=== PATIENT | female | born 1945 | race Caucasian/White ===

== ENCOUNTER → 2016-09-20 | Outpatient (CLI) | payer MEDICARE, BC ==
--- NOTE | 2016-09-21 10:24 | MM ---
Reason for exam: screening (asymptomatic). Last mammogram was performed 1 year and 10 months ago. History: Patient is postmenopausal and has history of other cancer at age 28. Family history of breast cancer in maternal cousin. Physical Findings: A clinical breast exam by your physician is recommended on an annual basis and results should be correlated with mammographic findings. MG 3D Screening Mammo W/Cad Bilateral CC and MLO view(s) were taken. Prior study comparison: November 10, 2014, bilateral MG screening mammo w CAD. August 13, 2013, bilateral digital screening mammo w/CAD. The breast tissue is extremely dense which could obscure a lesion on mammography. No significant changes when compared with prior studies. ASSESSMENT: Benign, BI-RAD 2 RECOMMENDATION: Routine screening mammogram of both breasts in 1 year.
== END | disposition home or self-care (01) ==
LOC: RADMAMWWP 15:21
PROVIDERS: ATTEND Internal Medicine
DX: Z12.31 Encounter for screening mammogram for malignant neoplasm of breast (principal)
CPT/HCPCS: 77063; G0202

== ENCOUNTER → 2017-01-23 | Day surgery (SDC) | payer MEDICARE, BC ==
[2017-01-17 13:08] VITALS: BMI 28.9
[~2017-01-23] MED LIST: BUPIVACAINE (PF) 0.75% 5 ML, LIDOCAINE 4% (PF) 5 ML, HYALURONIDASE, HUMAN RECOMB 150 UNIT MISCELLANE ONE; CYCLOPENTOLATE 1% OPHTH SOLN 2 ML BTL OP ONE; FLURBIPROFEN 0.03% OPHTH DROPS 2.5 ML BTL OP ONE; GENTAMICIN/PREDNISOL AC OPHTH OINT 3.5GM OPHTHALMIC ONE; LACTATED RINGERS 1,000 ML IV SCH; PHENYLEPHRINE 10% OPHTH DROPS 5 ML BTL OP ONE; TIMOLOL 0.5% OPHTH SOLN (PF) 0.2 ML DROPERETTE OP ONE
== END ==
LOC: OR 09:57
PROVIDERS: ATTEND Ophthalmology
DX: H25.13 Age-related nuclear cataract, bilateral (principal); Z88.5 Allergy status to narcotic agent

== ENCOUNTER → 2018-02-13 | Outpatient (CLI) | payer MEDICARE, BC ==
--- NOTE | 2018-02-14 14:11 | MM ---
Reason for exam: screening (asymptomatic). Last mammogram was performed 1 year and 5 months ago. History: Patient is postmenopausal and has history of other cancer at age 28. Family history of breast cancer in maternal cousin. Physical Findings: A clinical breast exam by your physician is recommended on an annual basis and results should be correlated with mammographic findings. MG 3D Screening Mammo W/Cad Bilateral CC and MLO view(s) were taken. Prior study comparison: September 20, 2016, bilateral MG 3d screening mammo w/cad. November 10, 2014, bilateral MG screening mammo w CAD. The breast tissue is extremely dense which could obscure a lesion on mammography. No significant changes when compared with prior studies. ASSESSMENT: Benign, BI-RAD 2 RECOMMENDATION: Routine screening mammogram of both breasts in 1 year.
== END | disposition home or self-care (01) ==
LOC: RADMAMWWP 12:24
PROVIDERS: ATTEND Internal Medicine
DX: Z12.31 Encounter for screening mammogram for malignant neoplasm of breast (principal)
CPT/HCPCS: 77063; 77067

== ENCOUNTER 2018-03-23 19:16 | Emergency (ER) | payer MEDICARE, BC ==
[2018-03-23] MEDS ORDERED: methylPREDNISolone SOD SUCCI 125 MG/2 ML VIAL IM STA (19:33)
[2018-03-23] MEDS ORDERED: METHOCARBAMOL 750 MG TAB PO STA (19:33)
--- NOTE | 2018-03-23 19:37 | ED ---
Back Pain HPI - General Chief Complaint: Back Pain/Injury Stated Complaint: back pain Time Seen by Provider: 03/23/18 19:17 Source: EMS Limitations: no limitations - History of Present Illness Initial Comments: Patient is a 73-year-old female presenting for lower back spasms. She states that this started yesterday after she bent over to pick something up. She admits to some pain going down her legs but she denies any weakness or numbness. She also denies any urinary symptoms, fevers, chills, abdominal pain , nausea/vomiting/diarrhea. She did try taking some medications but this did not resolve the symptoms. She also denies any saddle anesthesia, urinary retention, bowel incontinence. - Related Data Home Medications Medication Instructions Recorded Confirmed Cholecalciferol (Vitamin D3) 2,000 unit PO DAILY 01/17/17 01/17/17 [Vitamin D3] Citalopram Hydrobromide 40 mg PO HS 01/17/17 01/17/17 [Citalopram HBr] Lansoprazole [Prevacid] 60 mg PO DAILY 01/17/17 01/17/17 Metoprolol Succinate [Toprol XL] 50 mg PO DAILY 01/17/17 01/17/17 Naproxen [Naprosyn] 500 mg PO Q12HR 01/17/17 01/17/17 Pravastatin Sodium [Pravachol] 20 mg PO HS 01/17/17 01/17/17 Vitamin E (Dl,Tocopheryl Acet) 400 unit PO DAILY 01/17/17 01/17/17 [Vitamin E] amLODIPine [Norvasc] 5 mg PO DAILY 01/17/17 01/17/17 hydrALAZINE HCL [Apresoline] 10 mg PO DAILY 01/17/17 01/17/17 Previous Rx's Medication Instructions Recorded Hydrocodone/Acetaminophen [[place] 1 tab PO Q6HR PRN #12 tab 03/23/18 7.5-325] Lidocaine 5% Patch [Lidoderm] 1 patch TOPICAL DAILY #5 patch 03/23/18 Methocarbamol [Robaxin-750] 750 mg PO TID PRN #21 tablet 03/23/18 predniSONE 50 mg PO DAILY #5 tablet 03/23/18 Allergies Allergy/AdvReac Type Severity Reaction Status Date / Time No Known Allergies Allergy Verified 03/23/18 19:23 Review of Systems ROS Statement: Those systems with pertinent positive or pertinent negative responses have been documented in the HPI. Constitutional: Negative for chills, fatigue and fever. HENT: Negative for congestion. Respiratory: Negative for chest tightness, shortness of breath and wheezing. Negative for cough Cardiovascular: Negative for chest pain and palpitations. Gastrointestinal: Negative for abdominal pain. Negative for abdominal distention , diarrhea, nausea and vomiting. Genitourinary: Negative for dysuria. Musculoskeletal: Positive for back pain and back spasms. Negative for neck pain and neck stiffness. Skin: Negative for color change. Neurological: Negative for dizziness, speech difficulty, weakness and light- headedness. Psychiatric/Behavioral: Negative for agitation and confusion. Negative for anxiety ROS Other: All systems not noted in ROS Statement are negative. Past Medical History Past Medical History: Cancer, Eye Disorder, GERD/Reflux, Hyperlipidemia, Hypertension, Osteoarthritis (OA) Additional Past Medical History / Comment(s): HX CERVICAL CA. KINZA CATARACTS. History of Any Multi-Drug Resistant Organisms: None Reported Past Surgical History: Hysterectomy, Joint Replacement Additional Past Surgical History / Comment(s): TOTAL RT KNEE. COLONOSCOPY. Past Anesthesia/Blood Transfusion Reactions: No Reported Reaction Past Psychological History: Anxiety Smoking Status: Current every day smoker - Past Family History Mother Family Medical History: No Reported History General Exam - General Exam Comments Initial Comments: Constitutional: Pt is oriented to person, place, and time. Pt appears well- developed and well-nourished. No distress. HENT: Head: Normocephalic and atraumatic. Eyes: EOM are normal. Neck: Normal range of motion. Neck supple. Cardiovascular: Normal rate, regular rhythm, S1 normal, S2 normal and normal heart sounds. Exam reveals no gallop and no friction rub. No murmur heard. Pulmonary/Chest: Effort normal and breath sounds normal. No tachypnea and no bradypnea. No respiratory distress. No wheezes or rales noted. Abdominal: Soft. Bowel sounds are normal. Pt exhibits no shifting dullness, no distension, no pulsatile liver, no fluid wave, no abdominal bruit and no ascites. There is no tenderness. There is no rigidity, no rebound, no guarding, no tenderness at McBurney's point and negative Vale's sign. Musculoskeletal: Normal range of motion. 5 out of 5 muscle strength of the lower extremities. No neurovascular deficits of the lower extremities. 2+ DTRs at the patellar tendons bilaterally. No tenderness to the C-spine, T-spine , L-spine. Neurological: Pt is alert and oriented to person, place, and time. No cranial nerve deficit. Skin: Skin is warm and dry. No rash noted. Pt is not diaphoretic. No erythema. No pallor. Psychiatric: Pt has a normal mood and affect. Pt behavior is normal. Thought content normal. Limitations: no limitations Course Vital Signs 03/23/18 03/23/18 03/23/18 19:17 21:13 21:37 Temperature 98.4 F 98.7 F Pulse Rate 66 61 64 Respiratory 18 19 18 Rate Blood Pressure 161/79 190/91 186/88 O2 Sat by Pulse 95 96 98 Oximetry Medical Decision Making - Medical Decision Making X-ray of the lumbar spine showed mild compression deformity of 3 vertebral body with height loss presently 10% an indeterminate age. There is also a minimally displaced transverse process fracture of L2 on the left, age indeterminate and multilevel moderate degenerative disc disease. Extensive discussion was had with the patient and the patient's daughter and observation placement was offered to the patient. However, the patient was adamant and kindly stated that she wanted to go home and follow-up spine surgeon an outpatient basis. Patient was also given a prescription for a TLSO brace as this was not available in the emergency department. Patient was advised to come back to emergency department if the pain was intractable and/or she started to have other symptoms. Because she had no red flags for cauda equina, it was felt that this was an appropriate disposition. Patient was agreeable plan. Disposition Clinical Impression: Lumbar vertebral fracture, Back pain Disposition: HOME SELF-CARE Condition: Good Instructions: Acute Low Back Pain (ED) Prescriptions: Hydrocodone/Acetaminophen [[place] 7.5-325] 1 tab PO Q6HR PRN #12 tab PRN Reason: Pain Lidocaine 5% Patch [Lidoderm] 1 patch TOPICAL DAILY #5 patch Methocarbamol [Robaxin-750] 750 mg PO TID PRN #21 tablet PRN Reason: Pain predniSONE 50 mg PO DAILY #5 tablet Is patient prescribed a controlled substance at d/c from ED?: Yes When asked, does pt state using other controlled substances?: No If prescribed controlled substance>3 days was MAPS reviewed?: Prescribed <3 Days If opioid is for acute pain is fill amount 7 days or less?: Yes If Rx opioid, was Start Talking consent form obtained?: Yes Referrals: Ash Cameron MD [Primary Care Provider] - 1-2 days Irena Roca DO [Doctor of Osteopathic Medicine] - 1-2 days Time of Disposition: 21:01
--- NOTE | 2018-03-23 20:02 | XR ---
EXAMINATION TYPE: XR lumbar spine 2 or 3V DATE OF EXAM: 03/23/2018 CLINICAL HISTORY: Low back pain and spasms after lifting injury TECHNIQUE: Frontal and lateral images of the lumbar spine are obtained. COMPARISON: None FINDINGS: There is a compression deformity of the L3 vertebral body with vertebral body height loss of approximately 10%. There is mild retrolisthesis of L2 on L3 and mild anterolisthesis of L4 on L5 ( grade 1). There appears to be a minimally displaced fracture of the transverse process of L2 on the l eft of indeterminate age. There is generalized osseous demineralization and multilevel moderate degen erative changes of the lumbar spine. Overlying bowel is nondilated. There are 5 lumbar type vertebral bodies identified. IMPRESSION: 1. Mild compression deformity of the L3 vertebral body with height loss of approximately 10%. Indeter minate age without priors. 2. Minimally displaced transverse process fracture of L2 on the left. Indeterminate age without prior s. 3. Diffuse osseous demineralization and multilevel moderate degenerative disc disease. 4. Mild retrolisthesis of L2 on L3 and anterolisthesis of L4 on L5, likely on a degenerative basis.
[2018-03-23] MEDS ORDERED: HYDROcodone/APAP 7.5-325MG 1 EACH TAB PO ONE (21:16)
[2018-03-23 21:38] VITALS: BP 186/88; PULSE 64; RESP 18; TEMP 98.7
== END 2018-03-23 21:37 | disposition home or self-care (01) ==
LOC: EC 19:16
DX: S32.029A Unspecified fracture of second lumbar vertebra, initial encounter for closed fracture (principal); K21.9 Gastro-esophageal reflux disease without esophagitis; E78.5 Hyperlipidemia, unspecified; I10 Essential (primary) hypertension; M19.90 Unspecified osteoarthritis, unspecified site; F41.9 Anxiety disorder, unspecified; F17.200 Nicotine dependence, unspecified, uncomplicated; Z85.41 Personal history of malignant neoplasm of cervix uteri; Z79.1 Long term (current) use of non-steroidal anti-inflammatories (NSAID); Z79.899 Other long term (current) drug therapy
CPT/HCPCS: 72100; 99284; 96372; J2930

== ENCOUNTER → 2018-12-04 | Outpatient (CLI) | payer MEDICARE, BC ==
--- NOTE | 2018-12-05 09:13 | CTL ---
EXAMINATION TYPE: CT Low Dose Lung DATE OF EXAM ORDERED: 12/04/2018 HISTORY: . Lung cancer screening CT DLP: [address] CTDI: 1.91 mGy Automated exposure control for dose reduction was used. SCREENING VISIT: Initial COMPARISON: None TECHNIQUE: Low dose computed tomography scan was performed through the chest at 1 mm thick sections a nd reconstructed images in the coronal plane at [address] DIAGNOSTIC QUALITY: Limited, but interpretable FINDINGS: LUNG NODULES: None. Note is made of a couple of emphysematous bulla within the right lung base. LUNGS: COPD: Severity: Mild Fibrosis: Severity: None Lymph nodes: None Other findings: The ascending thoracic aorta at the level the main pulmonary artery is 3.2 cm. The ma in pulmonary artery the bifurcation is 2.8 cm. RIGHT PLEURAL SPACE: Effusion: None Calcification: None Thickening: None Pneumothorax: None LEFT PLEURAL SPACE: Effusion: None Calcification: None Thickening: None Pneumothorax: None HEART: Heart Size: Normal Coronary calcification: Moderate Pericardial effusion: None OTHER FINDINGS: Upper abdomen: Normal Bony thorax: Normal Supraclavicular region: Normal Other: None IMPRESSION: 1. COPD FOLLOW UP CT CHEST RECOMMENDATION: Low dose screening CT chest per protocol CT LUNG RAD: Lung-Rad 1 Negative
== END | disposition home or self-care (01) ==
LOC: RADCTMAIN 16:51
PROVIDERS: ATTEND Family Medicine
DX: Z12.2 Encounter for screening for malignant neoplasm of respiratory organs (principal); J44.9 Chronic obstructive pulmonary disease, unspecified; Z87.891 Personal history of nicotine dependence

== ENCOUNTER → 2019-02-14 | Outpatient (CLI) | payer MEDICARE, BC ==
--- NOTE | 2019-02-18 10:08 | MM ---
Reason for exam: screening (asymptomatic). Last mammogram was performed 1 year ago. History: Patient is postmenopausal and has history of other cancer at age 28. Family history of breast cancer in maternal cousin. Physical Findings: A clinical breast exam by your physician is recommended on an annual basis and results should be correlated with mammographic findings. MG 3D Screening Mammo W/Cad Bilateral CC and MLO view(s) were taken. Prior study comparison: February 13, 2018, bilateral MG 3d screening mammo w/cad. September 20, 2016, bilateral MG 3d screening mammo w/cad. The breast tissue is extremely dense which could obscure a lesion on mammography. There is a stable anterior depth inferior skin lesion. Benign appearing bilateral calcifications. No suspicious abnormality. No significant changes when compared with prior studies. ASSESSMENT: Negative, BI-RAD 1 RECOMMENDATION: Routine screening mammogram of both breasts in 1 year.
== END ==
LOC: RADMAMWWP 13:52
PROVIDERS: ATTEND Family Medicine
DX: Z12.31 Encounter for screening mammogram for malignant neoplasm of breast (principal)
CPT/HCPCS: 77063; 77067

== ENCOUNTER 2019-03-13 08:47 | Day surgery (SDC) | payer MEDICARE, BC ==
[2019-03-11 16:05] VITALS: BMI 25.2
[2019-03-13] MEDS ORDERED: ALPRAZolam 0.25 MG TAB ONE (09:26)
[2019-03-13] MEDS ORDERED: hydrALAZINE HCL 20 MG/ML 1 ML VIAL ONE (09:26)
[2019-03-13] MEDS ORDERED: ATORVASTATIN 80 MG TAB PO STA (11:10)
[2019-03-13] MEDS ORDERED: SODIUM CHLORIDE 0.9% 1,000 ML in EMPTY BAG 1 BAG IV ONE (11:10)
[2019-03-13] MEDS ORDERED: ALPRAZolam 0.25 MG TAB PO PRN (11:10)
[2019-03-13] MEDS ORDERED: NITROGLYCERIN SL TABS 0.4 MG TAB SUBLINGUAL PRN ×2 (11:10→13:13)
[2019-03-13] MEDS ORDERED: ALPRAZolam 0.5 MG TAB PO PRN (11:10)
[2019-03-13] MEDS ORDERED: ASPIRIN 325 MG TAB PO STA (11:10)
[2019-03-13] MEDS ORDERED: IV FLUID CONTINUATION 1,000 ML IV ONE (11:50)
[2019-03-13] MEDS ORDERED: VERAPAMIL 2.5 MG/ML 2 ML AMP ONE (11:53)
[2019-03-13] MEDS ORDERED: LIDOCAINE 1% INJ 10MG/ML (20 ML MDV) ONE (11:53)
[2019-03-13] MEDS ORDERED: HEPARIN SODIUM 1,000 UN/ML (10ML VL) ONE (12:13)
[2019-03-13] MEDS: MIDAZOLAM (PF) 2 MG/2 ML VIAL IV ONE ×3 (12:24→12:35)
[2019-03-13] MEDS: LIDOCAINE 1% INJ 10MG/ML (20 ML MDV) SQ ONE ×2 (12:32→12:52)
[2019-03-13] MEDS ORDERED: VERAPAMIL SYRINGE (5 MG/10 ML) INTRAARTER ONE (12:34)
[2019-03-13] MEDS: HEPARIN SODIUM 1,000 UN/ML (10ML VL) IV ONE ×2 (12:38→12:52)
[2019-03-13] MEDS ORDERED: HYDROmorphone 1 MG/ML 1 ML SYRINGE ONE (12:39)
[2019-03-13] MEDS ORDERED: HYDROmorphone 1 MG/ML 1 ML SYRINGE IVP ONE (12:41)
[2019-03-13] MEDS ORDERED: CLOPIDOGREL 75 MG TAB ONE ×2 (12:47)
[2019-03-13] MEDS ORDERED: MIDAZOLAM (PF) 2 MG/2 ML VIAL IV ONE (12:48)
[2019-03-13] MEDS ORDERED: CLOPIDOGREL 75 MG TAB PO ONE (12:55)
[2019-03-13] MEDS ORDERED: NITROGLYCERIN 1000MCG/10ML SYRINGE INTRACORON ONE (13:04)
[2019-03-13] MEDS ORDERED: IOPAMIDOL-370 125ML BTL INJ ONE (13:06)
[2019-03-13] MEDS ORDERED: ATROPINE SULFATE 0.1 MG/ML 10ML SYRINGE IV PRN (13:13)
[2019-03-13] MEDS ORDERED: MAG HYDROX/AL HYDROX/SIMETH 30 ML CUP PO PRN (13:13)
[2019-03-13] MEDS ORDERED: ZOLPIDEM 5 MG TAB PO PRN (13:13)
[2019-03-13] MEDS ORDERED: RX INFO: IV CONTRAST WAS GIVEN 1 EACH MISC MISCELLANE PRN (13:13)
[2019-03-13] MEDS ORDERED: SODIUM CHLORIDE 0.9% 1,000 ML IV SCH (13:15)
--- NOTE | 2019-03-13 13:57 | CC ---
CARDIAC CATHETERIZATION REPORT DATE OF SERVICE: 03/13/2019 PERFORMING PHYSICIAN: Donte Senior MD, Shell Mold Bonding Machine Operator. PROCEDURE PERFORMED: 1. Selective right and left coronary angiogram. 2. Left heart catheterization. 3. Successful stenting of the mid left circumflex using 3.25 x 18 mm Xience EPIFANIO with an excellent angiographic results and reduction of stenosis from 90% to 0%. INDICATION: This is a pleasant 74-year-old female patient with hypertension, dyslipidemia, significant history of smoking, significant family history of coronary artery disease, was experiencing symptoms of shortness of breath with exertion. She underwent a myocardial perfusion imaging stress test and that revealed reversible defect concerning for ischemia. Because of that, a heart catheterization was advised. APPROACH: 1. Right radial artery. 2. Right common femoral artery. COMPLICATION: None. LEVEL OF SEDATION: Moderate with sedation length of 36 minutes. PROCEDURE DESCRIPTION: After obtaining an informed consent, the patient was brought to the cardiac concrete mixing plant laborer. The right radial artery was cannulated using micropuncture technique, the micropuncture wire passed easily then I put a 5-Ivorian sheath in the right radial artery. I did give the patient after that 2 mg of verapamil IA and 5000 units of heparin IV. I did perform selective right and left coronary angiogram. Selective right coronary angiogram was performed using JR4 3.5 catheter and selective left coronary angiogram was performed using JL 3 catheter. The patient experienced a lot passing the catheters through the arm and because of that, I decided to abort the radial approach for the intervention on the left circumflex. Left heart catheterization was performed using the JR4 catheter which flipped into the LV, then it was pulled back across the aortic valve. The procedure was completed without any complication. SELECTIVE CORONARY ANGIOGRAM: 1. The right coronary artery is a large caliber vessel. It is a dominant vessel. The RCA in the proximal portion appeared to be angiographically normal. In the midportion, it appeared to have a lesion in the range of 60%. Distally appeared to be angiographically normal and bifurcates into PDA and PLV branches, both are angiographically normal. 2. The left main has ostial disease, appeared to be in the range of 30%. It bifurcates into left circumflex, ramus intermedius, and left anterior descending artery. 3. The left circumflex is a large caliber vessel, it is a nondominant vessel. The proximal left circumflex appeared to have mild disease only. The mid left circumflex is tortuous and at that point gives rise into the first obtuse marginal branch which is a medium caliber vessel and appears to be angiographically normal and the second OM branch which is involved in the lesion in the left circumflex which is about 90% lesion. The left circumflex continues after that as a small- caliber vessel in the AV groove. 4. The LAD, the LAD overall appears to be angiographically normal. It gives rise into a large diagonal branch which seems to be angiographically normal. 5. The ramus intermedius appeared to be angiographically normal as well. 6. HEMODYNAMICS: The left ventricular end-diastolic pressure was about 12 mmHg without significant gradient across aortic valve. 7. PCI of the left circumflex - I accessed the right common femoral artery using micropuncture technique and a micropuncture wire passed easily, then I placed a 6- Ivorian sheath. After that, I did check the ACT which came into be subtherapeutic and because of that, I gave the patient additional 3000 units of heparin. 8. I engaged the left main using JL 3.5 guide. I did wire it using a whisper wire. After that, I did balloon angioplasty using 2.5 x 12 mm balloon before I deployed 3.25 x 18 mm Xience EPIFANIO where the stent was positioned under fluoroscopy guidance and deployed under 16 atmospheres for 20 seconds with the following angiogram showing excellent angiographic results and the procedure was completed without any complication. CONCLUSION: 1. Intermediate to severe lesion involving the mid-right coronary artery, appeared to be in the range of 60%. 2. 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 3. Mild disease involving the left anterior descending artery. 4. Successful stenting of the mid left circumflex using 3.25 x 18 mm Xience EPIFANIO with an excellent angiographic results and reduction of stenosis from 90% to 0%. POSTPROCEDURE MANAGEMENT: 1. Dual anti-platelet therapy. 2. Risk factors modifications. 3. If the patient continues to be symptomatic, will assess for ischemia in the RCA territory. MMODL / IJN: [id number] /
--- NOTE | 2019-03-13 15:24 | LTR ---
DATE OF SERVICE: 03/13/2019 RE: Beulah Celeste Dear Dr. Porras; Ms. Beulah Celeste underwent today successful percutaneous coronary intervention of the left circumflex coronary artery with an excellent angiographic results and without any complication. I want to thank you for allowing me to participate in her care and please do not hesitate to call if you have any question or concern. Sincerely, MD LAITH Martin / ANALIN: [id number] /
[2019-03-13] MEDS ORDERED: PRAVASTATIN SODIUM 20 MG TAB PO SCH (21:00)
[2019-03-13] MEDS ORDERED: ATORVASTATIN 80 MG TAB PO SCH (21:00)
[2019-03-13] MEDS ORDERED: CITALOPRAM HYDROBROMIDE 20 MG TAB PO SCH (21:00)
[2019-03-14 03:33] VITALS: TEMP 98.6
[2019-03-14 07:17] LABS: Basophils % (A) 0 %; Eosinophils # (A) 0.2 k/uL (0-0.7); Eosinophils % (A) 3 %; HCT 29.3 % (34.0-46.0); HGB 9.8 gm/dL (11.4-16.0); Lymphocytes # (A) 1.2 k/uL (1.0-4.8); Lymphocytes % (A) 15 %; MCH 31.9 pg (25.0-35.0); MCHC 33.5 g/dL (31.0-37.0); MCV 95.2 fL (80.0-100.0); Mean Platelet Volume 7.6; Monocytes # (A) 0.4 k/uL (0-1.0); Monocytes % (A) 5 %; Neutrophils # (A) 5.7 k/uL (1.3-7.7); Neutrophils % (A) 75 %; Platelet Count 292 k/uL (150-450); RBC 3.08 m/uL (3.80-5.40); RDW 13.3 % (11.5-15.5); WBC 7.7 k/uL (3.8-10.6)
[2019-03-14] MEDS ORDERED: PANTOPRAZOLE 40 MG TABLET PO SCH (07:30)
[2019-03-14 07:31] LABS: Potassium 4.5 mmol/L (3.5-5.1)
[2019-03-14 08:42] VITALS: BP 168/77; PULSE 68; RESP 18
--- NOTE | 2019-03-14 08:45 | DS ---
DISCHARGE SUMMARY ADMISSION DATE: March 13, 2019 DISCHARGE DATE: March 14, 2019 BRIEF HISTORY: This is a 74-year-old female patient who was experiencing symptoms of shortness of breath with exertion and underwent heart catheterization yesterday and that revealed severe disease involving the left circumflex which was stented with excellent angiographic results and without any complication. The patient is going to be discharged home on dual antiplatelet therapy and statin and I will follow up with the patient in a week in the office. MMAIDAN / CARLY: [id number] /
[2019-03-14] MEDS ORDERED: CLOPIDOGREL 75 MG TAB PO SCH (09:00)
[2019-03-14] MEDS ORDERED: CHOLECALCIFEROL 1,000 UNIT TAB PO SCH (09:00)
[2019-03-14] MEDS ORDERED: hydrALAZINE HCL 10 MG TAB PO SCH (09:00)
[2019-03-14] MEDS ORDERED: amLODIPine 5 MG TAB PO SCH (09:00)
[2019-03-14] MEDS ORDERED: METOPROLOL SUCCINATE (ER) 50 MG TAB.ER.24H PO SCH (09:00)
== END 2019-03-14 10:30 ==
LOC: CATHCVL 08:47 → 3SCARD 16:07 → CATHCVL 03-14 10:30
PROVIDERS: ATTEND Internal Medicine Interventional Cardiology
DX: I25.110 Atherosclerotic heart disease of native coronary artery with unstable angina pectoris (principal); I10 Essential (primary) hypertension; F17.210 Nicotine dependence, cigarettes, uncomplicated; I77.1 Stricture of artery; E78.5 Hyperlipidemia, unspecified; Z82.49 Family history of ischemic heart disease and other diseases of the circulatory system; I73.9 Peripheral vascular disease, unspecified; Z79.82 Long term (current) use of aspirin; Z79.899 Other long term (current) drug therapy
CPT/HCPCS: 93458; 85347; 80048; 85025; C9600; C1769 ×3; C1887; C1725; C1894 ×2; C1874; J0360; J2001; J1644; J1170; Q9967; J2250

== ENCOUNTER 2019-08-05 21:29 | Inpatient (IN) | payer MEDICARE, BC ==
[2019-08-05] MEDS ORDERED: methylPREDNISolone SOD SUCCI 125 MG/2 ML VIAL IV STA (22:05)
[2019-08-05] MEDS ORDERED: IPRATROPIUM-ALBUTEROL 3 ML NEB INHALATION STA (22:05)
--- NOTE | 2019-08-05 22:05 | ED ---
SOB HPI - General Chief Complaint: Shortness of Breath Stated Complaint: CRYSTAL Time Seen by Provider: 08/05/19 21:50 Source: patient, family Mode of arrival: wheelchair Limitations: no limitations - History of Present Illness Initial Comments: This is a 74-year-old female history of emphysema who is brought in by family due to progressively worsening exertional dyspnea and shortness of breath. She looks pale today. She does have a history of the left circumflex cardiac artery with a stent she does have an occluded RCA. Chest pain no fevers chills nausea vomiting sweats just exertional dyspnea which is getting progressively worse. MD Complaint: shortness of breath - Related Data Home Medications Medication Instructions Recorded Confirmed Cholecalciferol (Vitamin D3) 2,000 unit PO DAILY 01/17/17 08/05/19 [Vitamin D3] Citalopram Hydrobromide 40 mg PO HS 01/17/17 08/05/19 [Citalopram HBr] amLODIPine [Norvasc] 5 mg PO DAILY 01/17/17 08/05/19 Metoprolol Succinate [Toprol Xl] 50 mg PO DAILY 03/11/19 08/05/19 Aspirin EC [Ecotrin Low Dose] 81 mg PO DAILY 08/05/19 08/05/19 Lansoprazole [Prevacid] 30 mg PO BID 08/05/19 08/05/19 Lisinopril [Prinivil] 5 mg PO DAILY 08/05/19 08/05/19 Rosuvastatin [Crestor] 20 mg PO DAILY 08/05/19 08/05/19 Previous Rx's Medication Instructions Recorded Clopidogrel [Plavix] 75 mg PO DAILY #90 tab 03/14/19 Allergies Allergy/AdvReac Type Severity Reaction Status Date / Time No Known Allergies Allergy Verified 08/05/19 23:07 Review of Systems ROS Statement: Those systems with pertinent positive or pertinent negative responses have been documented in the HPI. ROS Other: All systems not noted in ROS Statement are negative. Past Medical History Past Medical History: Cancer, Eye Disorder, GERD/Reflux, Hyperlipidemia, Hypertension, Osteoarthritis (OA) Additional Past Medical History / Comment(s): HX CERVICAL CA. KINZA CATARACTS. History of Any Multi-Drug Resistant Organisms: None Reported Past Surgical History: Heart Catheterization With Stent Additional Past Surgical History / Comment(s): TOTAL RT KNEE. COLONOSCOPY. Past Anesthesia/Blood Transfusion Reactions: No Reported Reaction Past Psychological History: Anxiety Smoking Status: Current every day smoker Past Alcohol Use History: Daily Past Drug Use History: None Reported - Past Family History Mother Family Medical History: No Reported History General Exam - General Exam Comments Initial Comments: This is a well-developed asthenic appearing female who is awake alert oriented 3 Limitations: no limitations General appearance: alert, anxious Head exam: Present: atraumatic, normocephalic, normal inspection Eye exam: Present: normal appearance, PERRL, EOMI. Absent: scleral icterus, conjunctival injection, periorbital swelling ENT exam: Present: mucous membranes dry Neck exam: Present: normal inspection. Absent: tenderness, meningismus, lymphadenopathy Respiratory exam: Present: accessory muscle use, decreased breath sounds, other (Markedly diminished breath sounds especially on the right compared to the left). Absent: respiratory distress, wheezes, rales, rhonchi, stridor Cardiovascular Exam: Present: regular rate, normal rhythm, normal heart sounds. Absent: systolic murmur, diastolic murmur, rubs, gallop, clicks GI/Abdominal exam: Present: soft, normal bowel sounds. Absent: distended, tende rness, guarding, rebound, rigid Extremities exam: Present: normal inspection, full ROM, normal capillary refill. Absent: tenderness, pedal edema, joint swelling, calf tenderness Back exam: Present: normal inspection Neurological exam: Present: alert, oriented X3, CN II-XII intact Psychiatric exam: Present: normal affect, normal mood Skin exam: Present: warm, dry, intact, normal color. Absent: rash Course Vital Signs 08/05/19 08/05/19 08/05/19 21:32 22:26 22:34 Temperature 97.9 F Pulse Rate 82 67 67 Respiratory 20 Rate Blood Pressure 214/96 O2 Sat by Pulse 87 L Oximetry 08/05/19 23:26 Temperature Pulse Rate 70 Respiratory 18 Rate Blood Pressure 180/81 O2 Sat by Pulse 97 Oximetry - Reevaluation(s) Reevaluation #1: 08/05/19 23:40 She did get some relief after the initial treatment with updraft. Reevaluation #2: 08/05/19 23:40 I did discuss findings with patient family members x-ray does show evidence of increased pulmonary vascular congestion a small right pleural effusion and cardiomegaly. ENT is 17,000+. Medical Decision Making - Medical Decision Making I did discuss findings with the patient and family members as well as with Dr. Saul. Patient be admitted with cardiology and pulmonary consultation. The presentation is consistent with CHF and COPD exacerbation with hypoxemia - Lab Data Result diagrams: 08/05/19 21:48 08/05/19 21:48 Lab Results 08/05/19 08/05/19 08/05/19 Range/Units 21:48 21:48 21:48 WBC 7.6 (3.8-10.6) k/uL RBC 3.16 L (3.80-5.40) m/uL Hgb 10.3 L (11.4-16.0) gm/dL Hct 31.3 L (34.0-46.0) % MCV 99.1 (80.0-100.0) fL MCH 32.6 (25.0-35.0) pg MCHC 32.9 (31.0-37.0) g/dL RDW 13.2 (11.5-15.5) % Plt Count 313 (150-450) k/uL Neutrophils % 76 % Lymphocytes % 16 % Monocytes % 5 % Eosinophils % 2 % Basophils % 1 % Neutrophils # 5.7 (1.3-7.7) k/uL Lymphocytes # 1.2 (1.0-4.8) k/uL Monocytes # 0.4 (0-1.0) k/uL Eosinophils # 0.2 (0-0.7) k/uL Basophils # 0.0 (0-0.2) k/uL PT (9.0-12.0) sec INR (<1.2) APTT (22.0-30.0) sec Sodium 132 L (137-145) mmol/L Potassium 5.4 H (3.5-5.1) mmol/L Chloride 104 (98-107) mmol/L Carbon Dioxide 16 L (22-30) mmol/L Anion Gap 12 mmol/L BUN 36 H (7-17) mg/dL Creatinine 1.54 H (0.52-1.04) mg/dL Est GFR (CKD-EPI)AfAm 38 (>60 ml/min/1.73 sqM) Est GFR (CKD-EPI)NonAf 33 (>60 ml/min/1.73 sqM) Glucose 96 (74-99) mg/dL Calcium 9.2 (8.4-10.2) mg/dL Magnesium 1.7 (1.6-2.3) mg/dL Total Bilirubin 0.7 (0.2-1.3) mg/dL AST 52 H (14-36) U/L ALT 25 (9-52) U/L Alkaline Phosphatase 96 (38-126) U/L Creatine Kinase 131 (30-135) U/L Troponin I (0.000-0.034) ng/mL NT-Pro-B Natriuret Pep 75275 pg/mL Total Protein 8.2 (6.3-8.2) g/dL Albumin 4.5 (3.5-5.0) g/dL 08/05/19 08/05/19 Range/Units 21:48 21:48 WBC (3.8-10.6) k/uL RBC (3.80-5.40) m/uL Hgb (11.4-16.0) gm/dL Hct (34.0-46.0) % MCV (80.0-100.0) fL MCH (25.0-35.0) pg MCHC (31.0-37.0) g/dL RDW (11.5-15.5) % Plt Count (150-450) k/uL Neutrophils % % Lymphocytes % % Monocytes % % Eosinophils % % Basophils % % Neutrophils # (1.3-7.7) k/uL Lymphocytes # (1.0-4.8) k/uL Monocytes # (0-1.0) k/uL Eosinophils # (0-0.7) k/uL Basophils # (0-0.2) k/uL PT 11.0 (9.0-12.0) sec INR 1.0 (<1.2) APTT 26.2 (22.0-30.0) sec Sodium (137-145) mmol/L Potassium (3.5-5.1) mmol/L Chloride (98-107) mmol/L Carbon Dioxide (22-30) mmol/L Anion Gap mmol/L BUN (7-17) mg/dL Creatinine (0.52-1.04) mg/dL Est GFR (CKD-EPI)AfAm (>60 ml/min/1.73 sqM) Est GFR (CKD-EPI)NonAf (>60 ml/min/1.73 sqM) Glucose (74-99) mg/dL Calcium (8.4-10.2) mg/dL Magnesium (1.6-2.3) mg/dL Total Bilirubin (0.2-1.3) mg/dL AST (14-36) U/L ALT (9-52) U/L Alkaline Phosphatase (38-126) U/L Creatine Kinase (30-135) U/L Troponin I <0.012 (0.000-0.034) ng/mL NT-Pro-B Natriuret Pep pg/mL Total Protein (6.3-8.2) g/dL Albumin (3.5-5.0) g/dL - EKG Data -: EKG Interpreted by Me EKG shows normal: sinus rhythm (Sinus rhythm rate 78 DC interval 120 QRS duration 150 QT since QTC 452/5:15 a bundle-branch block pattern this does compared with EKG dated 03/14/19) - Radiology Data Radiology results: report reviewed (I did review the imaging and report is evide nce of CHF and cardiomegaly.), image reviewed Critical Care Time Critical Care Time: Yes Critical Care Time: 32 minutes of critical care time which includes initial presentation with history physical labs x-rays several reevaluation the patient to responsive therapy discuss with the patient family regarding the findings review of old charting admission orders and documentation of the above symptoms was discussed with Dr. Saul. Disposition Clinical Impression: Congestive heart failure, Acute exacerbation of chronic obstructive pulmonary disease, Acute respiratory distress syndrome in adult, Hypoxemia Disposition: ADMITTED IP TO THIS HOSP Condition: Fair Referrals: Roldan Porras Jr, DO [Primary Care Provider] - 1-2 days
[2019-08-05 22:22] LABS: Basophils % (A) 1 %; Eosinophils # (A) 0.2 k/uL (0-0.7); Eosinophils % (A) 2 %; HCT 31.3 % (34.0-46.0); HGB 10.3 gm/dL (11.4-16.0); Lymphocytes # (A) 1.2 k/uL (1.0-4.8); Lymphocytes % (A) 16 %; MCH 32.6 pg (25.0-35.0); MCHC 32.9 g/dL (31.0-37.0); MCV 99.1 fL (80.0-100.0); Mean Platelet Volume 7.5; Monocytes # (A) 0.4 k/uL (0-1.0); Monocytes % (A) 5 %; Neutrophils # (A) 5.7 k/uL (1.3-7.7); Neutrophils % (A) 76 %; Platelet Count 313 k/uL (150-450); RBC 3.16 m/uL (3.80-5.40); RDW 13.2 % (11.5-15.5); WBC 7.6 k/uL (3.8-10.6)
[2019-08-05 22:33] LABS: Albumin 4.5 g/dL (3.5-5.0); Calcium 9.2 mg/dL (8.4-10.2); Magnesium 1.7 mg/dL (1.6-2.3); Total Bilirubin 0.7 mg/dL (0.2-1.3); Total Protein 8.2 g/dL (6.3-8.2)
--- NOTE | 2019-08-05 22:33 | XR ---
EXAMINATION TYPE: XR chest 2V DATE OF EXAM: 08/05/2019 COMPARISON: NONE HISTORY: Difficulty breathing TECHNIQUE: Frontal and lateral views of the chest are obtained. FINDINGS: Heart is enlarged. There is extensive coarse interstitial infiltrate throughout the lungs. There is slight blunting of the costophrenic angles. There are chest leads. IMPRESSION: Moderate pulmonary fibrosis. Mild heart failure is possible. Cardiomegaly.
[2019-08-05 22:38] LABS: Potassium 5.4 mmol/L (3.5-5.1)
[2019-08-05 22:47] LABS: Partial Thromboplastin Time 26.2 sec (22.0-30.0)
[2019-08-05] MEDS ORDERED: FUROSEMIDE 10 MG/ML 4 ML VIAL IV STA (23:16)
[2019-08-06] MEDS: IPRATROPIUM-ALBUTEROL 3 ML NEB INHALATION SCH ×5 (04:13→19:20)
[2019-08-06] MEDS: methylPREDNISolone SOD SUCCI 125 MG/2 ML VIAL IV SCH ×4 (05:58→23:53)
[2019-08-06] MEDS ORDERED: FUROSEMIDE 40 MG TAB PO SCH (08:00)
[2019-08-06] MEDS: amLODIPine 5 MG TAB PO SCH (09:15)
[2019-08-06] MEDS: ATORVASTATIN 40 MG TAB PO SCH (09:15)
[2019-08-06] MEDS: LISINOPRIL 5 MG TAB PO SCH (09:15)
[2019-08-06] MEDS: CLOPIDOGREL 75 MG TAB PO SCH (09:15)
[2019-08-06] MEDS: ASPIRIN 81 MG PO SCH (09:15)
[2019-08-06] MEDS: CHOLECALCIFEROL 1,000 UNIT TAB PO SCH (09:15)
[2019-08-06] MEDS: PANTOPRAZOLE 40 MG TABLET PO SCH ×2 (09:16→20:48)
[2019-08-06] MEDS: METOPROLOL SUCCINATE (ER) 50 MG TAB.ER.24H PO SCH (09:16)
--- NOTE | 2019-08-06 11:05 | P.CRDCN ---
History of Present Illness History of present illness: HISTORY OF PRESENTING ILLNESS This is a pleasant 74-year-old female past medical history significant for coronary artery disease status post recent PCI, dyslipidemia, hypertension, COPD, daily alcohol intake and chronic nicotine dependence. She follows in the office with Dr. Senior. We have been asked to see in consultation for shortness of breath. She is seen and examined resting comfortably lying flat in bed. She states on a daily basis she has mild exertional dyspnea however starting on late Sunday early Sunday she started feeling increasingly short of breath with activi ty and even at rest. She was up all night Sunday unable to get comfortable and catch her breath. She denies any associated chest discomfort, dizziness or palpitations. Since arriving in the hospital she received one dose of IV Lasix, IV steroids and updraft treatments. She states overall her breathing seems to be improving however not back to baseline. DIAGNOSTICS EKG reveals sinus mechanism, right bundle branch block, T wave abnormalities and ST depression in the precordial anterior leads. Chest xray pulmonary fibrosis. Laboratory reviewed, WBC 7.6, hemoglobin 10.3, platelets 313, sodium 132, potassium 5.4, creatinine 1.54, magnesium 1.7, cardiac enzymes negative 3, proBNP 17,700. Current cardiac medications include Plavix 75 mg daily, aspirin 81 mg daily, rosuvastatin 20 mg daily, amlodipine 5 mg daily, lisinopril 5 mg daily and Toprol 50 mg daily. Most recent cardiac catheterization performed November 2018 revealed a lesion in the mid circumflex 90%, lesion of the ostial left main 30% and a lesion in the mid RCA 60%. At that time she underwent successful stent placement to the mid circumflex artery. Most recent echocardiogram obtained in the office December 2018 revealed preserved LV systolic function with mild aortic regurgitation, mild tricuspid regurgitation and mild mitral regurgitation. REVIEW OF SYSTEMS At the time of my exam: CONSTITUTIONAL: Denies fever or chills. CARDIOVASCULAR: Complains of shortness of breath, PND. Denies chest pain, orthopnea or palpitations. RESPIRATORY: Denies cough. GASTROINTESTINAL: Denies abdominal pain, diarrhea, constipation, nausea or vomiting. MUSCULOSKELETAL: Denies myalgias. NEUROLOGIC: Denies numbness, tingling or weakness. ENDOCRINE: Denies fatigue, weight change, polydipsia or polyurina. GENITOURINARY: Denies burning, hematuria or urgency with micturation. HEMATOLOGIC: Denies history of anemia or bleeding. PHYSICAL EXAMINATION Blood pressure 157/64 heart rate 76 afebrile and maintaining oxygen saturation on nasal cannula. CONSTITUTIONAL: No apparent distress. HEENT: Head is normocephalic. Pupils are equal, round. Sclerae anicteric. Mucous membranes of the mouth are moist. No JVD. No carotid bruit. CHEST EXAMINATION: Bibasilar rales, diminished bilaterally, faint expiratory wheeze. No chest wall tenderness is noted on palpation or with deep breathing. HEART EXAMINATION: Regular rate and rhythm. S1, S2 heard. Systolic ejection murmur at the left sternal border, no gallops or rub. ABDOMEN: Soft, nontender. Positive bowel sounds. EXTREMITIES: 2+ peripheral pulses, no lower extremity edema and no calf t enderness. NEUROLOGIC EXAMINATION: Patient is awake, alert and oriented x3. ASSESSMENT Acute hypoxic respiratory failure secondary to heart failure and COPD Acute on chronic diastolic heart failure COPD Hyperkalemia Chronic kidney disease, GFR 33. Stage IIIB History of coronary artery disease status post recent angioplasty maintained on dual antiplatelet therapy Hypertension Dyslipidemia Chronic nicotine dependence Daily alcohol intake PLAN Initiate IV diuretics 40 mg BID. Decrease aspirin to 81 mg daily. Repeat BMP. Document accurate intake and output along with daily weights. Obtain 2D echocardiogram and doppler study to assess cardiac structure and function. Further recommendations to follow based on clinical course. Thank you kindly for this consultation. Nurse Practitioner note has been reviewed, I agree with a documented findings and plan of care. Patient was seen and examined. Past Medical History Past Medical History: Cancer, COPD, Eye Disorder, GERD/Reflux, Hyperlipidemia, Hypertension, Osteoarthritis (OA) Additional Past Medical History / Comment(s): HX CERVICAL CA. KINZA CATARACTS. murmur History of Any Multi-Drug Resistant Organisms: None Reported Past Surgical History: Heart Catheterization With Stent Additional Past Surgical History / Comment(s): TOTAL RT KNEE. COLONOSCOPY. may heart cath with stent Past Anesthesia/Blood Transfusion Reactions: No Reported Reaction Date of Last Stent Placement:: 05/2019 Past Psychological History: Anxiety Smoking Status: Current every day smoker Past Alcohol Use History: Daily Additional Past Alcohol Use History / Comment(s): SMOKED SINCE AGE 15, 1 PPD. 5-6 BEERS DAILY. Past Drug Use History: None Reported - Past Family History Mother Family Medical History: No Reported History Medications and Allergies Home Medications Medication Instructions Recorded Confirmed Type Cholecalciferol (Vitamin D3) 2,000 unit PO DAILY 01/17/17 08/05/19 History [Vitamin D3] Citalopram Hydrobromide 40 mg PO HS 01/17/17 08/05/19 History [Citalopram HBr] amLODIPine [Norvasc] 5 mg PO DAILY 01/17/17 08/05/19 History Metoprolol Succinate [Toprol Xl] 50 mg PO DAILY 03/11/19 08/05/19 History Clopidogrel [Plavix] 75 mg PO DAILY #90 tab 03/14/19 08/05/19 Rx Aspirin EC [Ecotrin Low Dose] 81 mg PO DAILY 08/05/19 08/05/19 History Lansoprazole [Prevacid] 30 mg PO BID 08/05/19 08/05/19 History Lisinopril [Prinivil] 5 mg PO DAILY 08/05/19 08/05/19 History Rosuvastatin [Crestor] 20 mg PO DAILY 08/05/19 08/05/19 History Allergies Allergy/AdvReac Type Severity Reaction Status Date / Time No Known Allergies Allergy Verified 08/05/19 23:07 Physical Exam Vitals: Vital Signs Temp Pulse Pulse Resp BP BP Pulse Ox 08/06/19 08:08 76 08/06/19 07:57 84 08/06/19 04:40 98 F 73 18 157/64 98 08/06/19 04:24 88 08/06/19 04:14 87 98 08/06/19 02:37 97.7 F 76 18 189/75 98 08/06/19 00:56 69 16 124/94 98 08/05/19 23:26 70 18 180/81 97 08/05/19 22:34 67 08/05/19 22:26 67 08/05/19 21:32 97.9 F 82 20 214/96 87 L Intake and Output 08/05/19 08/06/19 08/06/19 22:59 06:59 14:59 Other: Voiding Method Toilet # Voids 1 Weight 58.967 kg 48.5 kg Results 08/05/19 21:48 08/06/19 09:44 Cardiac Enzymes 08/05/19 08/05/19 08/06/19 Range/Units 21:48 21:48 03:53 AST 52 H (14-36) U/L Troponin I <0.012 <0.012 (0.000-0.034) ng/mL Coagulation 08/05/19 Range/Units 21:48 PT 11.0 (9.0-12.0) sec APTT 26.2 (22.0-30.0) sec CBC 08/05/19 Range/Units 21:48 WBC 7.6 (3.8-10.6) k/uL RBC 3.16 L (3.80-5.40) m/uL Hgb 10.3 L (11.4-16.0) gm/dL Hct 31.3 L (34.0-46.0) % Plt Count 313 (150-450) k/uL Comprehensive Metabolic Panel 08/05/19 Range/Units 21:48 Sodium 132 L (137-145) mmol/L Potassium 5.4 H (3.5-5.1) mmol/L Chloride 104 (98-107) mmol/L Carbon Dioxide 16 L (22-30) mmol/L BUN 36 H (7-17) mg/dL Creatinine 1.54 H (0.52-1.04) mg/dL Glucose 96 (74-99) mg/dL Calcium 9.2 (8.4-10.2) mg/dL AST 52 H (14-36) U/L ALT 25 (9-52) U/L Alkaline Phosphatase 96 (38-126) U/L Total Protein 8.2 (6.3-8.2) g/dL Albumin 4.5 (3.5-5.0) g/dL Current Medications Generic Name Dose Route Start Last Admin Trade Name Batool PRN Reason Stop Dose Admin Albuterol/Ipratropium 3 ml 08/06/19 04:00 08/06/19 07:57 Duoneb 0.5 Mg-3 Mg/3 Ml Soln INHALATION 3 ml Q4HR [facility] Administration Amlodipine Besylate 5 mg 08/06/19 09:00 Norvasc PO DAILY [facility] Aspirin 325 mg 08/07/19 00:07 Aspirin PO 08/07/19 00:08 DAILY [facility] Aspirin 81 mg 08/06/19 09:00 Aspirin PO DAILY [facility] Atorvastatin Calcium 40 mg 08/06/19 09:00 Lipitor PO DAILY [facility] Cholecalciferol 2,000 unit 08/06/19 09:00 Vitamin D3 (25 Mcg = 1000 Iu) PO DAILY [facility] Citalopram Hydrobromide 40 mg 08/06/19 21:00 Celexa PO HS [facility] Clopidogrel Bisulfate 75 mg 08/06/19 09:00 Plavix PO DAILY [facility] Furosemide 40 mg 08/06/19 08:00 Lasix PO Q8HR [facility] Lisinopril 5 mg 08/06/19 09:00 Zestril PO DAILY [facility] Methylprednisolone Sodium Succinate 60 mg 08/06/19 06:00 08/06/19 05:58 Solu-Medrol IV 60 mg Q6HR [facility] Administration Metoprolol Succinate 50 mg 08/06/19 09:00 Toprol Xl PO DAILY [facility] Pantoprazole Sodium 40 mg 08/06/19 09:00 Protonix PO BID [facility] Intake and Output 08/05/19 08/06/19 08/06/19 22:59 06:59 14:59 Other: Voiding Method Toilet # Voids 1 Weight 58.967 kg 48.5 kg 08/05/19 21:48 08/05/19 21:48
[2019-08-06 11:15] LABS: Calcium 9.3 mg/dL (8.4-10.2); Potassium 3.8 mmol/L (3.5-5.1)
[2019-08-06] MEDS ORDERED: NICOTINE 14MG/24HR PATCH TRANSDERM SCH (13:00)
[2019-08-06] MEDS: NICOTINE 21MG/24HR PATCH TRANSDERM SCH (13:01)
[2019-08-06] MEDS: FUROSEMIDE 10 MG/ML 4 ML VIAL IV SCH ×2 (13:02→20:47)
--- NOTE | 2019-08-06 13:03 | P.HPIM ---
<Ruthy Wright - Last Filed: 08/06/19 08:45> Past Medical History Past Medical History: Cancer, COPD, Eye Disorder, GERD/Reflux, Hyperlipidemia, Hypertension, Osteoarthritis (OA) Additional Past Medical History / Comment(s): HX CERVICAL CA. KINZA CATARACTS. murmur History of Any Multi-Drug Resistant Organisms: None Reported Past Surgical History: Heart Catheterization With Stent Additional Past Surgical History / Comment(s): TOTAL RT KNEE. COLONOSCOPY. may heart cath with stent Past Anesthesia/Blood Transfusion Reactions: No Reported Reaction Date of Last Stent Placement:: 05/2019 Past Psychological History: Anxiety Smoking Status: Current every day smoker Past Alcohol Use History: Daily Additional Past Alcohol Use History / Comment(s): SMOKED SINCE AGE 15, 1 PPD. 5-6 BEERS DAILY. Past Drug Use History: None Reported - Past Family History Mother Family Medical History: No Reported History Medications and Allergies Home Medications Medication Instructions Recorded Confirmed Type Cholecalciferol (Vitamin D3) 2,000 unit PO DAILY 01/17/17 08/05/19 History [Vitamin D3] Citalopram Hydrobromide 40 mg PO HS 01/17/17 08/05/19 History [Citalopram HBr] amLODIPine [Norvasc] 5 mg PO DAILY 01/17/17 08/05/19 History Metoprolol Succinate [Toprol Xl] 50 mg PO DAILY 03/11/19 08/05/19 History Clopidogrel [Plavix] 75 mg PO DAILY #90 tab 03/14/19 08/05/19 Rx Aspirin EC [Ecotrin Low Dose] 81 mg PO DAILY 08/05/19 08/05/19 History Lansoprazole [Prevacid] 30 mg PO BID 08/05/19 08/05/19 History Lisinopril [Prinivil] 5 mg PO DAILY 08/05/19 08/05/19 History Rosuvastatin [Crestor] 20 mg PO DAILY 08/05/19 08/05/19 History Allergies Allergy/AdvReac Type Severity Reaction Status Date / Time No Known Allergies Allergy Verified 08/05/19 23:07 Physical Exam Vitals: Vital Signs Temp Pulse Pulse Resp BP BP Pulse Ox 08/06/19 08:08 76 08/06/19 07:57 84 08/06/19 04:40 98 F 73 18 157/64 98 08/06/19 04:24 88 08/06/19 04:14 87 98 08/06/19 02:37 97.7 F 76 18 189/75 98 08/06/19 00:56 69 16 124/94 98 08/05/19 23:26 70 18 180/81 97 08/05/19 22:34 67 08/05/19 22:26 67 08/05/19 21:32 97.9 F 82 20 214/96 87 L Intake and Output 08/05/19 08/06/19 08/06/19 22:59 06:59 14:59 Other: Voiding Method Toilet # Voids 1 Weight 58.967 kg 48.5 kg Results CBC & Chem 7: 08/05/19 21:48 08/05/19 21:48 Labs: Abnormal Lab Results - Last 24 Hours (Table) 08/05/19 08/05/19 Range/Units 21:48 21:48 RBC 3.16 L (3.80-5.40) m/uL Hgb 10.3 L (11.4-16.0) gm/dL Hct 31.3 L (34.0-46.0) % Sodium 132 L (137-145) mmol/L Potassium 5.4 H (3.5-5.1) mmol/L Carbon Dioxide 16 L (22-30) mmol/L BUN 36 H (7-17) mg/dL Creatinine 1.54 H (0.52-1.04) mg/dL AST 52 H (14-36) U/L Thrombosis Risk Factor Assmnt - Choose All That Apply Any of the Below Risk Factors Present?: Yes Each Factor Represents 1 point: Abnormal pulmonary function (COPD) Other Risk Factors: No Each Risk Factor Represents 2 Points: Age 61-74 years Other congenital or acquired thrombophilia - If yes, enter type in comment: No Thrombosis Risk Factor Assessment Total Risk Factor Score: 3 Thrombosis Risk Factor Assessment Level: Moderate Risk <Daniel Saul - Last Filed: 08/06/19 13:02> History of Present Illness H&P Date: 08/06/19 Chief Complaint: SOB This is a pleasant 74-year-old white female patient of 1 of my nurse practitioners and my partner currently. She has been complaining of some shortness of breath for about 2 months, since she had cardiac stents. She reports over the past week it is been more severe. She has had more more troubles catching her breath. She denies any chest pains or pressures. Denies any recent nausea or vomiting. She came the emergency room last night found to have a significantly elevated beta natruretic peptide along with evidence of COPD. She is a smoker and continues to smoke daily. She has been given diuretics and updrafts and feels much better today. Review of Systems All systems: negative Physical Exam Vitals: Vital Signs Temp Pulse Pulse Resp BP BP Pulse Ox 08/06/19 12:49 82 20 156/73 97 08/06/19 12:01 70 08/06/19 11:49 72 08/06/19 08:08 76 08/06/19 07:57 84 08/06/19 04:40 98 F 73 18 157/64 98 08/06/19 04:24 88 08/06/19 04:14 87 98 08/06/19 02:37 97.7 F 76 18 189/75 98 08/06/19 00:56 69 16 124/94 98 08/05/19 23:26 70 18 180/81 97 08/05/19 22:34 67 08/05/19 22:26 67 08/05/19 21:32 97.9 F 82 20 214/96 87 L Intake and Output 08/05/19 08/06/19 08/06/19 22:59 06:59 14:59 Other: Voiding Method Toilet # Voids 1 Weight 58.967 kg 48.5 kg GENERAL: Well-appearing, well-nourished and in no acute distress. HEAD: Atraumatic, normocephalic. EYES: Pupils equal round and reactive to light, extraocular movements intact, sclera anicteric, conjunctiva are normal. ENT:nares patent, oropharynx clear without exudates. Moist mucous membranes. NECK: Normal range of motion, supple without lymphadenopathy or JVD, no thyromegaly LUNGS: Breath sounds coarse to auscultation bilaterally and equal. No wheezes, + rales at L>R base today HEART: Regular rate and rhythm without rubs or gallops.S1S2 Normal 2/6 systolic murmur over the Left sternal border. ABDOMEN: Soft, nontender, normoactive bowel sounds. No guarding, no rebound. No masses appreciated. EXTREMITIES: Normal range of motion, no pitting or edema. No clubbing or cyanosis. NEUROLOGICAL: Cranial nerves II through XII grossly intact. Normal speech, normal gait. PSYCH: Normal mood, normal affect. Results CBC & Chem 7: 08/05/19 21:48 08/06/19 09:44 Labs: Abnormal Lab Results - Last 24 Hours (Table) 08/05/19 08/05/19 08/06/19 Range/Units 21:48 21:48 09:44 RBC 3.16 L (3.80-5.40) m/uL Hgb 10.3 L (11.4-16.0) gm/dL Hct 31.3 L (34.0-46.0) % Sodium 132 L 135 L (137-145) mmol/L Potassium 5.4 H (3.5-5.1) mmol/L Carbon Dioxide 16 L 18 L (22-30) mmol/L BUN 36 H 34 H (7-17) mg/dL Creatinine 1.54 H 1.62 H (0.52-1.04) mg/dL Glucose 202 H (74-99) mg/dL AST 52 H (14-36) U/L Chest x-ray: report reviewed Thrombosis Risk Factor Assmnt - DVT/VTE Prophylaxis DVT/VTE Prophylaxis: Pharmacologic Prophylaxis ordered Assessment and Plan (1) Acute congestive heart failure Current Visit: Yes Status: Acute Code(s): I50.9 - HEART FAILURE, UNSPECIFIED SNOMED Code(s): 98099669 (2) Tobacco abuse Current Visit: Yes Status: Acute Code(s): Z72.0 - TOBACCO USE SNOMED Code(s): 436921028 (3) Coronary arteriosclerosis Current Visit: Yes Status: Acute Code(s): I25.10 - ATHSCL HEART DISEASE OF [place] CORONARY ARTERY W/O ANG PCTRS SNOMED Code(s): 57998275 (4) H/O heart artery stent Current Visit: Yes Status: Acute Code(s): Z95.5 - PRESENCE OF CORONARY ANGIOPLASTY IMPLANT AND GRAFT SNOMED Code(s): 350685242 (5) Acute exacerbation of chronic obstructive pulmonary disease Current Visit: Yes Status: Acute Code(s): J44.1 - CHRONIC OBSTRUCTIVE PULMONARY DISEASE W (ACUTE) EXACERBATION SNOMED Code(s): 741977916 (6) Acute respiratory distress syndrome in adult Current Visit: Yes Status: Acute Code(s): J80 - ACUTE RESPIRATORY DISTRESS SYNDROME SNOMED Code(s): 33717840 (7) Essential (primary) hypertension Current Visit: Yes Status: Acute Code(s): I10 - ESSENTIAL (PRIMARY) HYPERTENSION SNOMED Code(s): 44077159 (8) Mixed hyperlipidemia Current Visit: Yes Status: Acute Code(s): E78.2 - MIXED HYPERLIPIDEMIA SNOMED Code(s): 319198464 Plan: She has been admitted to the hospital. She will continue on IV diuretics. Wait on 2D echo Cardiology consult is pending. With her longstanding history of smoking and possible pulmonary fibrosis and suspected COPD, I will consult pulmonology for further recommendations. Nicotine patch. Repeat labs in a.m. She will be reevaluated in the next 24 hours.
--- NOTE | 2019-08-06 13:39 | CT ---
EXAMINATION TYPE: CT chest wo con DATE OF EXAM: 08/06/2019 COMPARISON: None HISTORY: Pulmonary fibrosis CT DLP: 427.50 mGycm High-resolution noncontrast CT of the chest was performed with the patient in the prone and supine po sitions. Lung and mediastinal window settings are submitted. Patchy basilar infiltrates noted right greater than left may reflect developing pneumonia or inflamma tory change. Small right-sided pleural effusion identified. Mild basilar emphysematous change identif ied. No evidence for fibrosis or bronchiectasis. No distinct mass is noted. Subcentimeter mediastinal lymph nodes. Evidence of cardiomegaly. Upper abdominal structures are within normal limits. IMPRESSION: 1. No evidence for pulmonary fibrosis or bronchiectasis. 2. Small right-sided pleural effusion with mild patchy density right lower lobe may reflect acute inf lammatory process or developing pneumonia. Correlate clinically.
--- NOTE | 2019-08-06 15:28 | CONS ---
CONSULTATION PULMONARY/CRITICAL CARE CONSULTATION DATE OF SERVICE: 08/06/2019 This is a 74-year-old female apparently with a history of emphysema. The patient presented to the emergency room on August 05 with complaints of progressive worsening of her shortness of breath. It has been going on for weeks and maybe even longer. In addition, she complains of chest tightness, wheezing, coughing, and phlegm production. The patient has never seen a lung doctor. Her primary doctor is Dr. Saul. The patient continues to smoke. She has been smoking 59 years. She has no intention of quitting smoking. We spoke to her daughter, who is a respiratory therapist here at the hospital. The daughter mentioned to us that she would probably be a little resistant to us seeing her. She does agree to see me in followup after discharge. Pulmonary function testing would be beneficial. In addition, the chest x- ray suggests interstitial disease and the high-resolution CT scan of the chest was ordered. The patient is feeling a little bit better than she did when she came in yesterday. Still quite short of breath with any activity. The patient is currently not wearing the oxygen that was prescribed. The patient has smoked, as I mentioned, 59 years at 1-1/2 packs a day. CURRENT HOME MEDICATIONS: Include vitamin D3, citalopram, amlodipine, metoprolol, aspirin, Prevacid, lisinopril, and Crestor. Also, she is on Plavix. ALLERGIES: Denied. MEDICAL HISTORY: Includes cervical cancer, bilateral cataracts, gastroesophageal reflux disease, hyperlipidemia, hypertension, and osteoarthritis. She also has a history of CAD and has had a previous heart catheterization with stent. SURGICAL HISTORY: Other surgical history includes total right knee arthroplasty and colonoscopy. SOCIAL HISTORY: Positive for ongoing tobacco use. She smokes a pack and a half a day and has been smoking for 59 years. She does admit to drinking alcohol daily. She denies illicit drugs. FAMILY HISTORY: Significant in that both mother and father were healthy. REVIEW OF SYSTEMS: CONSTITUTIONAL: Negative. NEUROLOGIC: Negative. HEENT: Negative. CARDIOVASCULAR: Negative. PULMONARY: Shortness of breath, chest tightness, wheezing, cough, chest congestion, and phlegm production. GI: Negative. : Negative. RHEUMATOLOGIC: Negative. IMMUNOLOGIC: Negative. ENDOCRINOLOGIC: Negative. DERMATOLOGIC: Negative. PHYSICAL EXAMINATION: VITAL SIGNS: Current vital signs are reviewed. Temperature is 98 degrees, heart rate 70, respiratory rate 20, blood pressure 156/73, mean 100, room air saturation 97%. She appears in no acute distress. There is no audible wheezing, use of accessory muscles, or conversational dyspnea. HEENT: Examination is grossly unremarkable. Mucous membranes are moist. No oral lesions. NECK: Supple. Full range of motion. No adenopathy or thyromegaly. Neck veins are flat. CARDIOVASCULAR: Reveals regular rhythm and rate. Heart rate in the 70s. S1 and S2 normal. No murmur. LUNGS: Reveal severely diminished breath sounds throughout. A few scattered rhonchi are noted. Some mild end inspiratory crackles are appreciated. Breath sounds equal bilaterally. ABDOMEN: Soft. Bowel sounds are heard. EXTREMITIES: Are intact. No cyanosis, clubbing, or edema. SKIN: Without rash. NEUROLOGIC: Examination is brief but nonfocal. LAB DATA: Labs are reviewed. White count 7.6, hemoglobin 10.3, hematocrit 31.3, platelet count is normal. Sodium 135, potassium 3.8, chloride 103, CO2 18. BUN and creatinine were at 34 and 1.62. Anion gap was 14. Troponins were negative x3. N-terminal proBNP is 17,700. Chest x-ray suggests some diffuse interstitial changes. These may reflect interstitial edema and/or interstitial fibrosis. High-resolution CT scan was ordered. MEDICATIONS: Medications are reviewed. ASSESSMENT: 1. Shortness of breath, likely related to underlying chronic obstructive pulmonary disease exacerbation and possibly complicated by either interstitial fibrosis/pulmonary fibrosis and/or interstitial edema. 2. History of ongoing tobacco use with nicotine addiction, 1-1/2 packs a day x59 years. 3. History of cervical cancer. 4. Bilateral cataracts. 5. Gastroesophageal reflux disease. 6. Hyperlipidemia. 7. Hypertension. 8. Degenerative joint disease. 9. Coronary artery disease with previous stent placement. PLAN: The patient will get a high-resolution CT scan. Her medications were reviewed and adjusted accordingly. She promises to come back and see me in the office. There she will need a 6-minute walk distance and a full complete pulmonary function test. In addition, we counseled her about the importance of smoking cessation. MMODL / IJN: [id number] /
[2019-08-06 16:06] VITALS: BMI 25.7
--- NOTE | 2019-08-06 16:33 | ECHOF ---
Referral Reason:sob MEASUREMENTS -------- HEIGHT: 152.4 cm WEIGHT: 48.1 kg BP: 117/78 RVIDd: 3.4 cm (< 3.3) IVSd: 1.1 cm (0.6 - 1.1) LVIDd: 4.9 cm (3.9 - 5.3) LVPWd: 1.0 cm (0.6 - 1.1) IVSs: 1.5 cm LVIDs: 3.0 cm LVPWs: 1.8 cm LA Diam: 3.8 cm (2.7 - 3.8) LAESV Index (A-L): 71.86 ml/m Ao Diam: 2.7 cm (2.0 - 3.7) AV Cusp: 1.7 cm (1.5 - 2.6) MV EXCURSION: 11.604 mm (> 18.000) MV EF SLOPE: 66 mm/s (70 - 150) EPSS: 0.8 cm MV E Phani: 1.08 m/s MV DecT: 182 ms MV A Phani: 0.87 m/s MV E/A Ratio: 1.23 AV maxP.87 mmHg AV meanP.04 mmHg RAP: 5.00 mmHg RVSP: 45.73 mmHg FINDINGS -------- Sinus rhythm. This was a technically good study. The left ventricular size is normal. There is borderline concentric left ventricular hypertrophy. Overall left ventricular systolic function is mildly impaired with, an EF between 45 - 50 %. The right ventricle is mild to moderately enlarged. LA is severely dilated >40 ml/m2 The right atrium is normal in size. Interatrial and interventricular septum intact. There is mild aortic valve sclerosis. There is mild aortic stenosis present. Peak/mean gradient a cross the Aortic Valve is 29.87mmHg / 15.04mmHg. Mild mitral regurgitation is present. Mild tricuspid regurgitation present. There is mild to moderate pulmonary hypertension. The right ventricular systolic pressure, as measured by Doppler, is 45.73mmHg. Trace/mild (physiologic) pulmonic regurgitation. The aortic root size is normal. Normal inferior vena cava with normal inspiratory collapse consistent with estimated right atrial pre ssure of 5 mmHg. There is no pericardial effusion. CONCLUSIONS -------- 1. Sinus rhythm. 2. This was a technically good study. 3. The left ventricular size is normal. 4. There is borderline concentric left ventricular hypertrophy. 5. Overall left ventricular systolic function is mildly impaired with, an EF between 45 - 50 %. 6. The right ventricle is mild to moderately enlarged. 7. LA is severely dilated >40 ml/m2 8. The right atrium is normal in size. 9. Interatrial and interventricular septum intact. 10. There is mild aortic valve sclerosis. 11. There is mild aortic stenosis present. 12. Peak/mean gradient across the Aortic Valve is 29.87mmHg / 15.04mmHg. 13. Mild mitral regurgitation is present. 14. Mild tricuspid regurgitation present. 15. There is mild to moderate pulmonary hypertension. 16. The right ventricular systolic pressure, as measured by Doppler, is 45.73mmHg. 17. Trace/mild (physiologic) pulmonic regurgitation. 18. The aortic root size is normal. 19. Normal inferior vena cava with normal inspiratory collapse consistent with estimated right atrial pressure of 5 mmHg. 20. There is no pericardial effusion. MANAGEMENT PROFESSIONAL: ANA M Fraser
[2019-08-06] MEDS: HEPARIN SODIUM,PORCINE 5,000 UNIT/ML 1 ML VIAL SQ SCH ×2 (17:29→23:53)
[2019-08-06] MEDS: SYMBICORT 160-4.5 MCG INHALER INHALATION SCH (19:20)
[2019-08-06] MEDS: CITALOPRAM HYDROBROMIDE 20 MG TAB PO SCH (20:48)
[2019-08-07] MEDS ORDERED: ASPIRIN 325 MG TAB PO SCH (00:07)
[2019-08-07] MEDS: IPRATROPIUM-ALBUTEROL 3 ML NEB INHALATION SCH ×6 (01:32→20:12)
[2019-08-07] MEDS: methylPREDNISolone SOD SUCCI 125 MG/2 ML VIAL IV SCH ×3 (05:55→17:16)
[2019-08-07] MEDS: SYMBICORT 160-4.5 MCG INHALER INHALATION SCH ×2 (07:08→20:12)
[2019-08-07] MEDS: NICOTINE 21MG/24HR PATCH TRANSDERM SCH (07:37)
[2019-08-07] MEDS: FUROSEMIDE 10 MG/ML 4 ML VIAL IV SCH (07:37)
[2019-08-07] MEDS: amLODIPine 5 MG TAB PO SCH (07:38)
[2019-08-07] MEDS: ASPIRIN 81 MG PO SCH (07:38)
[2019-08-07] MEDS: HEPARIN SODIUM,PORCINE 5,000 UNIT/ML 1 ML VIAL SQ SCH ×3 (07:38→22:28)
[2019-08-07] MEDS: PANTOPRAZOLE 40 MG TABLET PO SCH ×2 (07:38→22:27)
[2019-08-07] MEDS: ATORVASTATIN 40 MG TAB PO SCH (07:39)
[2019-08-07] MEDS: LISINOPRIL 5 MG TAB PO SCH (07:39)
[2019-08-07] MEDS: CLOPIDOGREL 75 MG TAB PO SCH (07:39)
[2019-08-07] MEDS: CHOLECALCIFEROL 1,000 UNIT TAB PO SCH (07:39)
[2019-08-07] MEDS: METOPROLOL SUCCINATE (ER) 50 MG TAB.ER.24H PO SCH (07:39)
[2019-08-07 09:25] LABS: Calcium 9.2 mg/dL (8.4-10.2); Potassium 3.7 mmol/L (3.5-5.1)
--- NOTE | 2019-08-07 11:31 | P.PN ---
Subjective Progress Note Date: 08/07/19 Principal diagnosis: Acute exacerbation of chronic obstructive pulmonary disease possible interstitial fibrosis/pulmonary fibrosis. The patient is seen today 08/07/2018 in follow-up on the regular medical floor. She is awake and alert in no acute distress. Resting comfortably in bed. Her breathing is improved today compared to yesterday but not quite back to her baseline. Still dyspneic on minimal exertion. Still somewhat bronchospastic and wheezing. Currently maintaining O2 saturations at 94% on room air. She's afebrile. Hemodynamically stable. Hemoglobin 33. Potassium 3.7. Creatinine 1.94. Echocardiogram reveals mildly impaired left ventricular systolic function with ejection fraction 45-50%. There is moderate pulmonary hypertension. Computed tomography scan of the chest revealed no evidence of pulmonary fibrosis or bronchiectasis. There is a small right-sided pleural effusion and a mild patchy density in the right lower lobe possibly inflammatory process or developing pneumonia. She remains on bronchodilators, Symbicort, IV Solu- Medrol, oral diuretics. NicoDerm patch is in place. Objective - Vital Signs Vital signs: Vital Signs Temp 98 F 08/07/19 05:00 Pulse 80 08/07/19 07:20 Resp 18 08/07/19 05:00 BP 158/64 08/07/19 05:00 Pulse Ox 94 L 08/07/19 07:11 Intake & Output 08/06/19 08/07/19 08/07/19 18:59 06:59 18:59 Weight 59.8 kg 57.5 kg Other: Voiding Method Toilet Toilet Bedside Commode # Voids 4 - Exam GENERAL EXAM: Alert, pleasant 74-year-old female patient, active, comfortable in no apparent distress. On room air. HEAD: Normocephalic. EYES: Normal reaction of pupils, equal size. NOSE: Clear with pink turbinates. THROAT: No erythema or exudates. NECK: No masses, no JVD. CHEST: No chest wall deformity. LUNGS: Equal air entry with lateral end expiratory wheeze, crackles in left base. CVS: S1 and S2 normal with no audible murmur, regular rhythm. ABDOMEN: No hepatosplenomegaly, normal bowel sounds, no guarding or rigidity. SPINE: No scoliosis or deformity SKIN: No rashes CENTRAL NERVOUS SYSTEM: No focal deficits, tone is normal in all 4 extremities. EXTREMITIES: There is no peripheral edema. No clubbing, no cyanosis. Peripheral pulses are intact. - Labs CBC & Chem 7: 08/05/19 21:48 08/07/19 08:18 Labs: Abnormal Lab Results - Last 24 Hours (Table) 08/07/19 Range/Units 08:18 Sodium 133 L (137-145) mmol/L Carbon Dioxide 20 L (22-30) mmol/L BUN 43 H (7-17) mg/dL Creatinine 1.94 H (0.52-1.04) mg/dL Glucose 167 H (74-99) mg/dL Assessment and Plan Assessment: #1 Acute hypoxic respiratory failure secondary to an acute exacerbation of suspected chronic obstructive pulmonary disease, complicated by suspected right lower lobe pneumonia. #2 Acute exacerbation of systolic congestive heart failure, ejection fraction 45-50%. #3 Chronic and ongoing tobacco dependence. #4 History of coronary disease with previous stent placement. #5 GERD. #6 Hyperlipidemia. #7 Hypertension. #8 History of cervical cancer. #9 Degenerative joint disease. Plan: The patient was seen and evaluated by Dr. Ortiz. CAT scan of the labs reviewed. We'll go ahead and add Augmentin. Continue with DuoNeb inhalations, Symbicort, IV Solu-Medrol. Not quite back to her baseline. Possible discharge in the a.m. Increase her activity as tolerated. Decrease FiO2 as tolerated. We'll continue to follow. I, the cosigning physician, performed a history & physical examination of the patient. Lungs sounds end expiratory wheeze, few scattered crackles in the left base. Maintaining good O2 saturations in the 90s on room air. I discussed the assessment and plan of care with my nurse practitioner, Eva Jade. I attest to the above note as dictated by her.
[2019-08-07] MEDS: AMOXIC-POT CLAV 875-125MG 1 EACH TAB PO SCH (11:44)
--- NOTE | 2019-08-07 12:50 | P.PN ---
Subjective HISTORY OF PRESENTING ILLNESS This is a pleasant 74-year-old female past medical history significant for coronary artery disease status post recent PCI, dyslipidemia, hypertension, COPD, daily alcohol intake and chronic nicotine dependence. She follows in the office with Dr. Senior. She is seen and examined sitting up in the bed in no acute distress. She states overall her breathing is back to baseline at rest however does have some ongoing exertional dyspnea. She denies chest pain, dizziness or palpitations. Blood pressure 158/64 heart rate 80 afebrile and maintaining oxygen saturation on room air. Laboratory data reviewed, sodium 133, potassium 3.7, creatinine 1.94. Echocardiogram obtained reveals mildly impaired LV systolic function with ejection fraction 45-50%, severely dilated left atrium, mild aortic stenosis with a mean gradient of 15 mmHg with no segmental wall motion abnormalities, mild tricuspid regurgitation and mild to moderate pulmonary hypertension with an RVSP of 45 mmHg. She underwent a CT of her chest yesterday revealing no evidence for pulmonary fibrosis, small right-sided pleural effusion with mild patchy density at the right lower lobe reflective of an acute inflammatory process or developing pneumonia. PHYSICAL EXAMINATION CONSTITUTIONAL: No apparent distress. HEENT: Head is normocephalic. Pupils are equal, round. Sclerae anicteric. Mucous membranes of the mouth are moist. No JVD. No carotid bruit. CHEST EXAMINATION: Bibasilar rales, diminished bilaterally, faint expiratory wheeze. No chest wall tenderness is noted on palpation or with deep breathing. HEART EXAMINATION: Regular rate and rhythm. S1, S2 heard. Systolic ejection murmur at the left sternal border, no gallops or rub. EXTREMITIES: 2+ peripheral pulses, no lower extremity edema and no calf tenderness. ASSESSMENT Acute hypoxic respiratory failure secondary to heart failure and COPD Acute on chronic diastolic heart failure COPD Hyperkalemia Chronic kidney disease, GFR 33. Stage IIIB History of coronary artery disease status post recent angioplasty maintained on dual antiplatelet therapy Hypertension Dyslipidemia Chronic nicotine dependence Daily alcohol intake PLAN Repeat EKG. Continue current medical regimen. Likely can transition to oral diuretics tomorrow. Repeat renal function and electrolytes in the morning. Further recommendations to follow. Nurse Practitioner note has been reviewed, I agree with a documented findings and plan of care. Patient was seen and examined. Objective - Vital Signs Vital signs: Vital Signs Temp 98 F 08/07/19 05:00 Pulse 80 08/07/19 07:20 Resp 18 08/07/19 05:00 BP 158/64 08/07/19 05:00 Pulse Ox 94 L 08/07/19 07:11 Intake & Output 08/06/19 08/07/19 08/07/19 18:59 06:59 18:59 Weight 59.8 kg 57.5 kg Other: Voiding Method Toilet Toilet Bedside Commode # Voids 4 - Labs CBC & Chem 7: 08/05/19 21:48 08/07/19 08:18 Labs: Abnormal Lab Results - Last 24 Hours (Table) 08/06/19 08/07/19 Range/Units 09:44 08:18 Sodium 135 L 133 L (137-145) mmol/L Carbon Dioxide 18 L 20 L (22-30) mmol/L BUN 34 H 43 H (7-17) mg/dL Creatinine 1.62 H 1.94 H (0.52-1.04) mg/dL Glucose 202 H 167 H (74-99) mg/dL
--- NOTE | 2019-08-07 14:07 | P.PN ---
Subjective Progress Note Date: 08/07/19 This is a pleasant 74-year-old white female patient of 1 of my nurse practitioners and my partner currently. She has been complaining of some shortness of breath for about 2 months, since she had cardiac stents. She reports over the past week it is been more severe. She has had more more t roubles catching her breath. She denies any chest pains or pressures. Denies any recent nausea or vomiting. She came the emergency room last night found to have a significantly elevated beta natruretic peptide along with evidence of COPD. She is a smoker and continues to smoke daily. She has been given diuretics and updrafts and feels much better today. 08/07/2019 maintained on nebulized bronchodilators, steroids, antibiotics with breathing improving, close to baseline. Complains of exertional dyspnea. Chest CT reported no pulmonary fibrosis or bronchiectasis, small right pleural effusion, mild patchy density right lower lobe .Vital signs stable, maintaining O2 sats in the 90s on room air. Afebrile. Echo reported borderline concentric left ventricular hypertrophy, EF 45-50%, severely dilated LA , mild to moderate pulmonary hypertension. Diuresing on Lasix IV push with creatinine worsening 1.94. Objective - Vital Signs Vital signs: Vital Signs Temp 98.4 F 08/07/19 11:19 Pulse 84 08/07/19 11:49 Resp 18 08/07/19 11:19 BP 157/81 08/07/19 11:19 Pulse Ox 98 08/07/19 11:19 Intake & Output 08/06/19 08/07/19 08/07/19 18:59 06:59 18:59 Weight 59.8 kg 57.5 kg Other: Voiding Method Toilet Toilet Bedside Commode # Voids 4 - Exam GENERAL: Well-appearing, well-nourished and in no acute distress. HEAD: Atraumatic, normocephalic. EYES: Pupils equal round and reactive to light, extraocular movements intact, sclera anicteric, conjunctiva are normal. ENT:nares patent, oropharynx clear without exudates. Moist mucous membranes. NECK: Normal range of motion, supple without lymphadenopathy or JVD, no thyromegaly LUNGS: Breath sounds coarse to auscultation bilaterally and equal. No wheezes, left basilar rales. HEART: Regular rate and rhythm without rubs or gallops.S1S2 Normal 2/6 systolic murmur over the Left sternal border. ABDOMEN: Soft, nontender, normoactive bowel sounds. No guarding, no rebound. No masses appreciated. EXTREMITIES: Normal range of motion, no pitting or edema. No clubbing or cyanosis. NEUROLOGICAL: Cranial nerves II through XII grossly intact. Normal speech, normal gait. PSYCH: Normal mood, normal affect. - Labs CBC & Chem 7: 08/05/19 21:48 08/07/19 08:18 Labs: Abnormal Lab Results - Last 24 Hours (Table) 08/07/19 Range/Units 08:18 Sodium 133 L (137-145) mmol/L Carbon Dioxide 20 L (22-30) mmol/L BUN 43 H (7-17) mg/dL Creatinine 1.94 H (0.52-1.04) mg/dL Glucose 167 H (74-99) mg/dL Assessment and Plan Assessment: (1) Acute hypoxic respiratory failure, multifactorial, secondary to suspected right lower lobe pneumonia, acute CHF, acute COPD exacerbation. (2)Acute congestive heart failure, systolic dysfunction, EF 45-50% Current Visit: Yes Status: Acute Code(s): I50.9 - HEART FAILURE, UNSPECIFIED SNOMED Code(s): 31304351 (3) Tobacco abuse Current Visit: Yes Status: Acute Code(s): Z72.0 - TOBACCO USE SNOMED Code(s): 827696927 (4) Coronary arteriosclerosis Current Visit: Yes Status: Acute Code(s): I25.10 - ATHSCL HEART DISEASE OF [place] CORONARY ARTERY W/O ANG PCTRS SNOMED Code(s): 38659322 (5) H/O heart artery stent Current Visit: Yes Status: Acute Code(s): Z95.5 - PRESENCE OF CORONARY ANGIOPLASTY IMPLANT AND GRAFT SNOMED Code(s): 707542146 (5) Acute exacerbation of chronic obstructive pulmonary disease Current Visit: Yes Status: Acute Code(s): J44.1 - CHRONIC OBSTRUCTIVE PULMONARY DISEASE W (ACUTE) EXACERBATION SNOMED Code(s): 143836246 (6) Acute respiratory distress syndrome in adult Current Visit: Yes Status: Acute Code(s): J80 - ACUTE RESPIRATORY DISTRESS SYNDROME SNOMED Code(s): 06119761 (7) Essential (primary) hypertension Current Visit: Yes Status: Acute Code(s): I10 - ESSENTIAL (PRIMARY) HYPERTENSION SNOMED Code(s): 44937346 (8) Mixed hyperlipidemia Current Visit: Yes Status: Acute Code(s): E78.2 - MIXED HYPERLIPIDEMIA SNOMED Code(s): 214505362 (9) chronic kidney disease stage III. Plan: Continue on current medication regime ,monitoring and symptomatic treatment. Maintain nebulized bronchodilators, steroids, antibiotics. Increase ambulation as tolerated. Smoking cessation reinforced. Evaluated by cardiology and pulmonary with recommendations noted and appreciated. Discharge planning in progress for tomorrow pending consults clearance. The impression and plan of care has been dictated as directed. : I performed a history and examination of this patient, discussed the same with the dictator. I agree with the dictator's note ,documented as a scribe. Any additional findings or plans will be noted.
[2019-08-07] MEDS ORDERED: FUROSEMIDE 10 MG/ML 4 ML VIAL IV SCH (21:00)
[2019-08-07] MEDS: CITALOPRAM HYDROBROMIDE 20 MG TAB PO SCH (22:27)
[2019-08-07] MEDS: methylPREDNISolone SOD SUCCI 40 MG/ML 1 ML VIAL IV SCH (22:28)
[2019-08-08] MEDS: IPRATROPIUM-ALBUTEROL 3 ML NEB INHALATION SCH ×5 (00:04→15:53)
[2019-08-08] MEDS: AMOXIC-POT CLAV 875-125MG 1 EACH TAB PO SCH ×2 (01:48→09:31)
[2019-08-08] MEDS: SYMBICORT 160-4.5 MCG INHALER INHALATION SCH (07:09)
[2019-08-08 07:49] LABS: Calcium 9.3 mg/dL (8.4-10.2); Potassium 3.8 mmol/L (3.5-5.1)
[2019-08-08] MEDS ORDERED: FUROSEMIDE 40 MG TAB PO SCH ×2 (09:00)
[2019-08-08] MEDS: amLODIPine 5 MG TAB PO SCH (09:28)
[2019-08-08] MEDS: NICOTINE 21MG/24HR PATCH TRANSDERM SCH (09:28)
[2019-08-08] MEDS: CLOPIDOGREL 75 MG TAB PO SCH (09:28)
[2019-08-08] MEDS: ASPIRIN 81 MG PO SCH (09:29)
[2019-08-08] MEDS: CHOLECALCIFEROL 1,000 UNIT TAB PO SCH (09:29)
[2019-08-08] MEDS: ATORVASTATIN 40 MG TAB PO SCH (09:29)
[2019-08-08] MEDS: methylPREDNISolone SOD SUCCI 40 MG/ML 1 ML VIAL IV SCH (09:29)
[2019-08-08] MEDS: PANTOPRAZOLE 40 MG TABLET PO SCH (09:29)
[2019-08-08] MEDS: HEPARIN SODIUM,PORCINE 5,000 UNIT/ML 1 ML VIAL SQ SCH (09:30)
[2019-08-08] MEDS: METOPROLOL SUCCINATE (ER) 50 MG TAB.ER.24H PO SCH (09:31)
[2019-08-08] MEDS ORDERED: amLODIPine 5 MG TAB PO STA (10:24)
--- NOTE | 2019-08-08 10:26 | P.PN ---
Subjective HISTORY OF PRESENTING ILLNESS This is a pleasant 74-year-old female past medical history significant for coronary artery disease status post recent PCI, dyslipidemia, hypertension, COPD, daily alcohol intake and chronic nicotine dependence. She follows in the office with Dr. Senior. She is seen and examined sitting up in bed eating break fast. She states overall her breathing is improved and back to baseline. She has been up ambulating without difficulty. She denies chest pain, dizziness or palpitations. Laboratory data reviewed, sodium 133, potassium 3.8, creatinine 2.05. Blood pressure 179/80 heart rate 80. PHYSICAL EXAMINATION CONSTITUTIONAL: No apparent distress. HEENT: Head is normocephalic. Pupils are equal, round. Sclerae anicteric. Mucous membranes of the mouth are moist. No JVD. No carotid bruit. CHEST EXAMINATION: Clear to auscultation bilaterally. No chest wall tenderness is noted on palpation or with deep breathing. Diminished bilaterally. HEART EXAMINATION: Regular rate and rhythm. S1, S2 heard. Systolic ejection murmur at the left sternal border, no gallops or rub. EXTREMITIES: 2+ peripheral pulses, no lower extremity edema and no calf tenderness. ASSESSMENT Acute hypoxic respiratory failure secondary to heart failure and COPD, improved. Acute on chronic diastolic heart failure COPD Hyperkalemia Chronic kidney disease, GFR 33. Stage IIIB History of coronary artery disease status post recent angioplasty maintained on dual antiplatelet therapy Hypertension Dyslipidemia Chronic nicotine dependence Daily alcohol intake PLAN Transition to oral diuretics. Increase norvasc to 10 mg daily, give additional dose of 5 now. Follow up renal function in 3 days. Follow up in the office with Dr. Senior in 2 weeks. Nurse Practitioner note has been reviewed, I agree with a documented findings and plan of care. Patient was seen and examined. Objective - Vital Signs Vital signs: Vital Signs Temp 97.5 F L 08/08/19 04:09 Pulse 80 08/08/19 07:22 Resp 18 08/08/19 04:09 BP 179/80 08/08/19 04:09 Pulse Ox 97 08/08/19 04:09 Intake & Output 08/07/19 08/08/19 08/08/19 18:59 06:59 18:59 Weight 59.5 kg Other: Voiding Method Toilet Bedside Commode # Voids 4 - Labs CBC & Chem 7: 08/05/19 21:48 08/08/19 07:19 Labs: Abnormal Lab Results - Last 24 Hours (Table) 08/08/19 Range/Units 07:19 Sodium 133 L (137-145) mmol/L Chloride 97 L (98-107) mmol/L Carbon Dioxide 21 L (22-30) mmol/L BUN 46 H (7-17) mg/dL Creatinine 2.05 H (0.52-1.04) mg/dL Glucose 127 H (74-99) mg/dL
[2019-08-08] MEDS: LISINOPRIL 5 MG TAB PO SCH (11:12)
[2019-08-08 11:18] VITALS: PULSE 84
[2019-08-08 11:48] VITALS: BP 154/72; RESP 16; TEMP 97.7
--- NOTE | 2019-08-08 11:53 | P.PN ---
Subjective Progress Note Date: 08/08/19 Principal diagnosis: Acute exacerbation of chronic obstructive pulmonary disease possible interstitial fibrosis/pulmonary fibrosis. The patient is seen today 08/07/2019 in follow-up on the regular medical floor. She is awake and alert in no acute distress. Resting comfortably in bed. Her breathing is improved today compared to yesterday but not quite back to her baseline. Still dyspneic on minimal exertion. Still somewhat bronchospastic and wheezing. Currently maintaining O2 saturations at 94% on room air. She's afebrile. Hemodynamically stable. Hemoglobin 33. Potassium 3.7. Creatinine 1.94. Echocardiogram reveals mildly impaired left ventricular systolic function with ejection fraction 45-50%. There is moderate pulmonary hypertension. Computed tomography scan of the chest revealed no evidence of pulmonary fibrosis or bronchiectasis. There is a small right-sided pleural effusion and a mild patchy density in the right lower lobe possibly inflammatory process or developing pneumonia. She remains on bronchodilators, Symbicort, IV Solu- Medrol, oral diuretics. NicoDerm patch is in place. the patient is seen today 08/08/2019 in follow-up on the regular medical floor. She is currently resting comfortably in bed. Awake and alert in no acute distress. Her breathing is nearly back to her baseline. No worsening shortness of breath, cough or congestion. she is maintaining good O2 saturations in the mid 90s on room air. She's afebrile. Hemodynamically stable. sodium 133. Potassium 3.8. Creatinine 2.05. She remains on bronchodilators, Symbicort, IV Solu-Medrolthe Augmentin. NicoDerm patch is in place. Objective - Vital Signs Vital signs: Vital Signs Temp 97.7 F 08/08/19 11:21 Pulse 84 08/08/19 11:21 Resp 16 08/08/19 11:21 BP 154/72 08/08/19 11:21 Pulse Ox 96 08/08/19 11:21 Intake & Output 08/07/19 08/08/19 08/08/19 18:59 06:59 18:59 Weight 59.5 kg Other: Voiding Method Toilet Toilet Bedside Commode Bedside Commode # Voids 4 2 - Exam GENERAL EXAM: Alert, pleasant 74-year-old female patient, active, comfortable in no apparent distress. On room air. HEAD: Normocephalic. EYES: Normal reaction of pupils, equal size. NOSE: Clear with pink turbinates. THROAT: No erythema or exudates. NECK: No masses, no JVD. CHEST: No chest wall deformity. LUNGS: Equal air entry with faintl end expiratory wheeze, crackles in left base. CVS: S1 and S2 normal with no audible murmur, regular rhythm. ABDOMEN: No hepatosplenomegaly, normal bowel sounds, no guarding or rigidity. SPINE: No scoliosis or deformity SKIN: No rashes CENTRAL NERVOUS SYSTEM: No focal deficits, tone is normal in all 4 extremities. EXTREMITIES: There is no peripheral edema. No clubbing, no cyanosis. Peripheral pulses are intact. - Labs CBC & Chem 7: 08/05/19 21:48 08/08/19 07:19 Labs: Abnormal Lab Results - Last 24 Hours (Table) 08/08/19 Range/Units 07:19 Sodium 133 L (137-145) mmol/L Chloride 97 L (98-107) mmol/L Carbon Dioxide 21 L (22-30) mmol/L BUN 46 H (7-17) mg/dL Creatinine 2.05 H (0.52-1.04) mg/dL Glucose 127 H (74-99) mg/dL Assessment and Plan Assessment: #1 Acute hypoxic respiratory failure secondary to an acute exacerbation of suspected chronic obstructive pulmonary disease. #2 Acute exacerbation of systolic congestive heart failure, ejection fraction 45-50%. #3 Chronic and ongoing tobacco dependence. #4 History of coronary disease with previous stent placement. #5 GERD. #6 Hyperlipidemia. #7 Hypertension. #8 History of cervical cancer. #9 Degenerative joint disease. Plan: The patient was seen and evaluated by Dr. Ortiz. CAT scan of the labs reviewed. We'll go ahead and add Augmentin. Continue with DuoNeb inhalations, Symbicort, IV Solu-Medrol. Not quite back to her baseline. Possible discharge in the a.m. Increase her activity as tolerated. Decrease FiO2 as tolerated. We'll continue to follow. I, the cosigning physician, performed a history & physical examination of the patient. Lungs sounds with faintend expiratory wheeze. Maintaining good O2 saturations in the 90s on room air. I discussed the assessment and plan of care with my nurse practitioner, Eva Jade. I attest to the above note as dictated by her.
--- NOTE | 2019-08-08 14:33 | P.DS ---
Providers Date of admission: 08/06/19 00:06 Expected date of discharge: 08/08/19 Attending physician: Daniel Saul Consults: 08/06/19 00:05 Consult Physician Routine Consulting Provider: Jey Ortiz Consult Reason/Comments: COPD with CHF Do you want consulting provider notified?: Yes, Notify in am Consult Physician Routine Consulting Provider: Michael Prakash Consult Reason/Comments: Congestive heart failure Do you want consulting provider notified?: Yes, Notify in am Primary care physician: [facility] Course: final diagnoses (1) Acute hypoxic respiratory failure, multifactorial, secondary to suspected right lower lobe pneumonia, acute CHF, acute COPD exacerbation. (2)Acute congestive heart failure, systolic dysfunction, EF 45-50% Current Visit: Yes Status: Acute Code(s): I50.9 - HEART FAILURE, UNSPECIFIED SNOMED Code(s): 59911272 (3) Tobacco abuse Current Visit: Yes Status: Acute Code(s): Z72.0 - TOBACCO USE SNOMED Code(s): 050586414 (4) Coronary arteriosclerosis Current Visit: Yes Status: Acute Code(s): I25.10 - ATHSCL HEART DISEASE OF [place] CORONARY ARTERY W/O ANG PCTRS SNOMED Code(s): 43323053 (5) H/O heart artery stent Current Visit: Yes Status: Acute Code(s): Z95.5 - PRESENCE OF CORONARY ANGIOPLASTY IMPLANT AND GRAFT SNOMED Code(s): 800226443 (5) Acute exacerbation of chronic obstructive pulmonary disease Current Visit: Yes Status: Acute Code(s): J44.1 - CHRONIC OBSTRUCTIVE PULMONARY DISEASE W (ACUTE) EXACERBATION SNOMED Code(s): 955264667 (6) Acute respiratory distress syndrome in adult Current Visit: Yes Status: Acute Code(s): J80 - ACUTE RESPIRATORY DISTRESS SYNDROME SNOMED Code(s): 04049473 (7) Essential (primary) hypertension Current Visit: Yes Status: Acute Code(s): I10 - ESSENTIAL (PRIMARY) HYPERTENSION SNOMED Code(s): 12229322 (8) Mixed hyperlipidemia Current Visit: Yes Status: Acute Code(s): E78.2 - MIXED HYPERLIPIDEMIA SNOMED Code(s): 720165936 (9) acute on chronic kidney disease stage III. Hospital course:This is a pleasant 74-year-old white female patient of 1 of my nurse practitioners and my partner currently. She has been complaining of some shortness of breath for about 2 months, since she had cardiac stents. She reports over the past week it is been more severe. She has had more more troubles catching her breath. She denies any chest pains or pressures. Denies any recent nausea or vomiting. She came the emergency room last night found to have a significantly elevated beta natruretic peptide along with evidence of COPD. She is a smoker and continues to smoke daily. She has been given diuretics and updrafts and feels much better today. 08/07/2019 maintained on nebulized bronchodilators, steroids, antibiotics with breathing improving, close to baseline. Complains of exertional dyspnea. Chest CT reported no pulmonary fibrosis or bronchiectasis, small right pleural effusion, mild patchy density right lower lobe .Vital signs stable, maintaining O2 sats in the 90s on room air. Afebrile. Echo reported borderline concentric left ventricular hypertrophy, EF 45-50%, severely dilated LA , mild to moderate pulmonary hypertension. Diuresing on Lasix IV push with creatinine worsening 1.94. WOODY inhibitor discontinued secondary to renal function, Norvasc increased. converted to oral Lasix. Significant clinical improvement.cleared by all consults for discharge. Patient is being discharged home in a stable condition with guarded prognosis. The impression and plan of care has been dictated as directed. : I performed a history and examination of this patient, discussed the same with the dictator. I agree with the dictator's note ,documented as a scribe. Any additional findings or plans will be noted. Patient Condition at Discharge: Stable Plan - Discharge Summary Discharge Rx Participant: Yes New Discharge Prescriptions: New Amoxic-Pot Clav 875-125Mg [Augmentin 875-125] 1 each PO Q12HR #10 tab Ipratropium-Albuterol Nebulize [Duoneb 0.5 mg-3 mg/3 ml Soln] 3 ml INHALATION QID #120 ampul.neb Nicotine 21Mg/24Hr Patch [Habitrol] 1 patch TRANSDERM DAILY #30 patch Furosemide [Lasix] 40 mg PO DAILY #30 tab amLODIPine [Norvasc] 10 mg PO DAILY #30 tab predniSONE 10 mg PO DIRECTED #30 tab Budesonide-Formot 160-4.5 Mcg [Symbicort 160-4.5 Mcg Inhaler] 2 puff INHALATION RT-BID #1 inh Continue Cholecalciferol (Vitamin D3) [Vitamin D3] 2,000 unit PO DAILY Citalopram Hydrobromide [Citalopram HBr] 40 mg PO HS Metoprolol Succinate [Toprol Xl] 50 mg PO DAILY Clopidogrel [Plavix] 75 mg PO DAILY #90 tab Lansoprazole [Prevacid] 30 mg PO BID Aspirin EC [Ecotrin Low Dose] 81 mg PO DAILY Rosuvastatin [Crestor] 20 mg PO DAILY Discontinued amLODIPine [Norvasc] 5 mg PO DAILY Lisinopril [Prinivil] 5 mg PO DAILY Discharge Medication List Cholecalciferol (Vitamin D3) [Vitamin D3] 2,000 unit PO DAILY 01/17/17 [History] Citalopram Hydrobromide [Citalopram HBr] 40 mg PO HS 01/17/17 [History] Metoprolol Succinate [Toprol Xl] 50 mg PO DAILY 03/11/19 [History] Clopidogrel [Plavix] 75 mg PO DAILY #90 tab 03/14/19 [Rx] Aspirin EC [Ecotrin Low Dose] 81 mg PO DAILY 08/05/19 [History] Lansoprazole [Prevacid] 30 mg PO BID 08/05/19 [History] Rosuvastatin [Crestor] 20 mg PO DAILY 08/05/19 [History] Amoxic-Pot Clav 875-125Mg [Augmentin 875-125] 1 each PO Q12HR #10 tab 08/08/19 [Rx] Budesonide-Formot 160-4.5 Mcg [Symbicort 160-4.5 Mcg Inhaler] 2 puff INHALATION RT-BID #1 inh 08/08/19 [Rx] Furosemide [Lasix] 40 mg PO DAILY #30 tab 08/08/19 [Rx] Ipratropium-Albuterol Nebulize [Duoneb 0.5 mg-3 mg/3 ml Soln] 3 ml INHALATION QID #120 ampul.neb 08/08/19 [Rx] Nicotine 21Mg/24Hr Patch [Habitrol] 1 patch TRANSDERM DAILY #30 patch 08/08/19 [Rx] amLODIPine [Norvasc] 10 mg PO DAILY #30 tab 08/08/19 [Rx] predniSONE 10 mg PO DIRECTED #30 tab 08/08/19 [Rx] Follow up Appointment(s)/Referral(s): Donte Senior MD [STAFF PHYSICIAN] - 1 Week (Aortic ultrasound rescheduled for Aug [address] Senior - Aug 25 at 11:30 am) Roldan Porras Jr, DO [Primary Care Provider] - 08/12/19 11:00 am [facility] [NON-STAFF] - 1 Week Jey Ortiz DO [Doctor of Osteopathic Medicine] - 2 Weeks [facility], [NON-STAFF] - Ambulatory/Diagnostic Orders: Complete Blood Count w/diff [LAB.AMB] Time Frame: 3 Days, Location: None Selected Activity/Diet/Wound Care/Special Instructions: pending pulm/card. clearance.confirm cardiology F/U apt prior to dc. Woody held r/t renal fx Diet: CHF DIet
[2019-08-09] MEDS ORDERED: amLODIPine 10 MG TAB PO SCH (09:00)
== END 2019-08-08 16:07 | disposition home or self-care (01) | DRG 291 ==
LOC: EC 21:29 → 3NMEDONC 08-06 00:06
PROVIDERS: ADMIT Family Medicine; ATTEND Family Medicine
DX: I13.0 Hypertensive heart and chronic kidney disease with heart failure and stage 1 through stage 4 chronic kidney disease, or unspecified chronic kidney disease (principal); I50.43 Acute on chronic combined systolic (congestive) and diastolic (congestive) heart failure; J96.01 Acute respiratory failure with hypoxia; J18.9 Pneumonia, unspecified organism; E78.2 Mixed hyperlipidemia; E87.5 Hyperkalemia; F17.200 Nicotine dependence, unspecified, uncomplicated; F41.9 Anxiety disorder, unspecified; I25.10 Atherosclerotic heart disease of native coronary artery without angina pectoris; I27.20 Pulmonary hypertension, unspecified; I45.10 Unspecified right bundle-branch block; J43.9 Emphysema, unspecified; J84.10 Pulmonary fibrosis, unspecified; K21.9 Gastro-esophageal reflux disease without esophagitis; M19.90 Unspecified osteoarthritis, unspecified site; N18.3 Chronic kidney disease, stage 3 (moderate); Z79.02 Long term (current) use of antithrombotics/antiplatelets; Z79.52 Long term (current) use of systemic steroids; Z79.82 Long term (current) use of aspirin; Z79.899 Other long term (current) drug therapy; Z85.41 Personal history of malignant neoplasm of cervix uteri; Z95.5 Presence of coronary angioplasty implant and graft; Z96.651 Presence of right artificial knee joint; H26.9 Unspecified cataract
CPT/HCPCS: 36415; 71046; 71250; 80048; 80053; 82550; 83735; 83880; 84484; 85025; 85610; 85730; 93005; 93306; 94640; 94760; 96374; 96375; 99291

== ENCOUNTER → 2019-11-07 | Outpatient (CLI) | payer MEDICARE, BC ==
--- NOTE | 2019-11-07 15:54 | US ---
EXAMINATION TYPE: US kidneys/renal and bladder DATE OF EXAM: 11/07/2019 COMPARISON: NONE CLINICAL HISTORY: R94.4 Abnormal Renal Results N18.3 CKD Stage 3. EXAM MEASUREMENTS: Right Kidney: 8.6 x 5.9 x 5.7 cm Left Kidney: 8.6 x 5.3 x 6.2 cm Post Void Residual Volume: 5.8 mL Diminished cortical medullary differentiation is seen bilaterally. Right Kidney: abnormally increased renal echogenicity is noted compared to liver; multiple renal cyst s noted with largest at upper pole = 1.4 x 1.3 x 1.4cm Left Kidney: multiple renal cysts with largest imaged at medial lower pole = 1.6 x 1.4 x 1.2cm; abnor james increased renal echogenicity is noted compared to spleen Bladder: wnl Bilateral Jets seen: yes Normal Post Void Residual: yes There is no evidence for hydronephrosis at this point in time. No nephrolithiasis is seen. The urina ry bladder is anechoic. Bilateral ureteral jets are seen. IMPRESSION: Sonographic sequela of chronic medical renal disease with diminished corticomedullary dif ferentiation, echogenic kidneys, and numerous bilateral renal cysts. No hydronephrosis nor nephrolith iasis seen.
== END | disposition home or self-care (01) ==
LOC: RADUSWWP 14:58
PROVIDERS: ATTEND Family Medicine
DX: N18.3 Chronic kidney disease, stage 3 (moderate) (principal); N28.1 Cyst of kidney, acquired
CPT/HCPCS: 76770

== ENCOUNTER → 2020-03-03 | Outpatient (CLI) | payer MEDICARE, BC ==
[2020-03-03 07:41] LABS: Basophils % (A) 1 %; Eosinophils # (A) 0.3 k/uL (0-0.7); Eosinophils % (A) 4 %; HCT 21.4 % (34.0-46.0); HGB 7.4 gm/dL (11.4-16.0); Lymphocytes # (A) 1.2 k/uL (1.0-4.8); Lymphocytes % (A) 16 %; MCH 31.9 pg (25.0-35.0); MCHC 34.4 g/dL (31.0-37.0); MCV 92.6 fL (80.0-100.0); Mean Platelet Volume 7.1; Monocytes # (A) 0.4 k/uL (0-1.0); Monocytes % (A) 6 %; Neutrophils # (A) 5.3 k/uL (1.3-7.7); Neutrophils % (A) 72 %; Platelet Count 273 k/uL (150-450); RBC 2.31 m/uL (3.80-5.40); RDW 12.9 % (11.5-15.5); WBC 7.4 k/uL (3.8-10.6)
[2020-03-03 12:42] LABS: African American GFR (CKD) 12.9 (60.0-200.0); Albumin 4.2 g/dL (3.80-4.90); Albumin/Globulin Ratio 1.91 (1.60-3.17); Anion Gap 12.3 mmol/L (4.00-12.00); BUN/Creat Ratio 16.32 Ratio (12.00-20.00); Calcium 7.6 mg/dL (8.7-10.3); Carbon Dioxide 16.7 mmol/L (21.6-31.8); Globulin 2.2 g/dL (1.6-3.3); Non-African American GFR(CKD) 11.1 (60.0-200.0); Potassium 3.3 mmol/L (3.5-5.5); Total Bilirubin 0.2 mg/dL (0.2-1.2); Total Protein 6.4 g/dL (6.2-8.2)
== END | disposition home or self-care (01) ==
LOC: LABWHC1 07:13
PROVIDERS: ATTEND Family Medicine
DX: E86.0 Dehydration (principal); R53.83 Other fatigue; E87.1 Hypo-osmolality and hyponatremia; N18.4 Chronic kidney disease, stage 4 (severe); D63.1 Anemia in chronic kidney disease
CPT/HCPCS: 36415; 80053; 83930; 83935; 84300; 85025

== ENCOUNTER → 2020-03-30 | Outpatient (CLI) | payer MEDICARE, BC ==
--- NOTE | 2020-03-30 13:56 | US ---
EXAMINATION TYPE: US venous doppler duplex LE RT DATE OF EXAM: 03/30/2020 1:37 PM COMPARISON: NONE CLINICAL HISTORY: R22.41 Localized swelling right lower. Patient had a heart catheterization in February 2019 in the right groin SIDE PERFORMED: Right TECHNIQUE: The lower extremity deep venous system is examined utilizing real time linear array sonog angelika with graded compression, doppler sonography and color-flow sonography. VESSELS IMAGED: External Iliac Vein (EIV) Common Femoral Vein Deep Femoral Vein Greater Saphenous Vein * Femoral Vein Popliteal Vein Small Saphenous Vein * Proximal Calf Veins (* superficial vessels) Right Leg: Negative for DVT Within the right groin, there is a complex area visualized measuring 3.4 x 1.5 x 1.9 cm that appears to arise from the right femoral artery. Possible completely thrombosed pseudoaneurysm vs other IMPRESSION: No evidence for DVT at this time. Nonspecific complex area right groin as discussed above .
== END | disposition home or self-care (01) ==
LOC: RADUSWWP 13:01
PROVIDERS: ATTEND Internal Medicine
DX: R22.41 Localized swelling, mass and lump, right lower limb (principal); N18.5 Chronic kidney disease, stage 5

== ENCOUNTER 2020-04-07 00:55 | Emergency (ER) | payer MEDICARE, BC ==
--- NOTE | 2020-04-07 01:48 | ED ---
SOB HPI - General Chief Complaint: Shortness of Breath Stated Complaint: Abnormal labs Time Seen by Provider: 04/07/20 01:18 Source: patient Mode of arrival: ambulatory Limitations: no limitations - History of Present Illness Initial Comments: This patient is 75-year-old woman who presents to be evaluated for suspected anemia. Patient relates that she had been seeing her physician for exertional dyspnea which is been going on for weeks to weeks. She states that she was then told she needed to be evaluated for low blood counts. Patient denies dyspnea at rest. No chest pain, diaphoresis, nausea or vomiting, palpitations or syncope. Patient has not noted bloody or dark tarry stools. MD Complaint: shortness of breath -: week(s) Severity scale (1-10): 0 Consistency: intermittent Improves With: rest Worsens With: exertion Associated Symptoms: denies other symptoms Treatments Prior to Arrival: none - Related Data Home Medications Medication Instructions Recorded Confirmed Cholecalciferol (Vitamin D3) 2,000 unit PO DAILY 01/17/17 08/05/19 [Vitamin D3] Citalopram Hydrobromide 40 mg PO HS 01/17/17 08/05/19 [Citalopram HBr] Metoprolol Succinate [Toprol Xl] 50 mg PO DAILY 03/11/19 08/05/19 Aspirin EC [Ecotrin Low Dose] 81 mg PO DAILY 08/05/19 08/05/19 Lansoprazole [Prevacid] 30 mg PO BID 08/05/19 08/05/19 Rosuvastatin [Crestor] 20 mg PO DAILY 08/05/19 08/05/19 Previous Rx's Medication Instructions Recorded Clopidogrel [Plavix] 75 mg PO DAILY #90 tab 03/14/19 Amoxic-Pot Clav 875-125Mg 1 each PO Q12HR #10 tab 08/08/19 [Augmentin 875-125] Budesonide-Formot 160-4.5 Mcg 2 puff INHALATION RT-BID #1 inh 08/08/19 [Symbicort 160-4.5 Mcg Inhaler] Furosemide [Lasix] 40 mg PO DAILY #30 tab 08/08/19 Ipratropium-Albuterol Nebulize 3 ml INHALATION QID #120 ampul.neb 08/08/19 [Duoneb 0.5 mg-3 mg/3 ml Soln] Nicotine 21Mg/24Hr Patch [Habitrol] 1 patch TRANSDERM DAILY #30 patch 08/08/19 amLODIPine [Norvasc] 10 mg PO DAILY #30 tab 08/08/19 predniSONE 10 mg PO DIRECTED #30 tab 08/08/19 Allergies Allergy/AdvReac Type Severity Reaction Status Date / Time No Known Allergies Allergy Verified 08/05/19 23:07 Review of Systems ROS Statement: Those systems with pertinent positive or pertinent negative responses have been documented in the HPI. ROS Other: All systems not noted in ROS Statement are negative. Constitutional: Denies: fever, chills Respiratory: Denies: cough, dyspnea, wheezes Cardiovascular: Reports: dyspnea on exertion. Denies: chest pain, palpitations, edema Gastrointestinal: Denies: abdominal pain, nausea, vomiting Genitourinary: Denies: dysuria, hematuria Musculoskeletal: Denies: back pain Skin: Denies: rash Neurological: Denies: headache, weakness, numbness Past Medical History Past Medical History: Cancer, COPD, Eye Disorder, GERD/Reflux, Hyperlipidemia, Hypertension, Osteoarthritis (OA) Additional Past Medical History / Comment(s): HX CERVICAL CA. KINZA CATARACTS. murmur History of Any Multi-Drug Resistant Organisms: None Reported Past Surgical History: Heart Catheterization With Stent Additional Past Surgical History / Comment(s): TOTAL RT KNEE. COLONOSCOPY. may heart cath with stent Past Anesthesia/Blood Transfusion Reactions: No Reported Reaction Date of Last Stent Placement:: 05/2019 Past Psychological History: Anxiety, Panic Disorder Smoking Status: Former smoker Past Alcohol Use History: Daily Past Drug Use History: None Reported - Past Family History Mother Family Medical History: No Reported History General Exam Limitations: no limitations General appearance: alert, in no apparent distress Head exam: Present: atraumatic, normocephalic Eye exam: Present: normal appearance, other (Conjunctival pallor). Absent: scleral icterus, conjunctival injection ENT exam: Present: normal oropharynx, mucous membranes moist, other (Mucosal pallor) Respiratory exam: Present: rales (Bilateral bases). Absent: respiratory distress, wheezes, rhonchi, stridor, accessory muscle use Cardiovascular Exam: Present: regular rate, normal rhythm, systolic murmur (Grade 1/6). Absent: diastolic murmur, rubs, gallop GI/Abdominal exam: Present: soft. Absent: distended, tenderness, guarding, rebound, rigid, mass Extremities exam: Present: normal inspection, normal capillary refill. Absent: pedal edema, calf tenderness Back exam: Present: normal inspection Neurological exam: Present: alert Skin exam: Present: warm, dry, intact, pallor. Absent: rash Course Vital Signs 04/07/20 04/07/20 04/07/20 01:05 01:50 02:00 Temperature 97.9 F Pulse Rate 68 Respiratory 16 16 Rate Blood Pressure 146/67 O2 Sat by Pulse 99 Oximetry 04/07/20 04/07/20 04/07/20 03:30 05:30 05:37 Temperature 97.9 F 97.6 F Pulse Rate 63 61 59 L Respiratory 16 16 17 Rate Blood Pressure 144/77 136/58 141/64 O2 Sat by Pulse 97 97 99 Oximetry 04/07/20 04/07/20 05:47 06:17 Temperature 97.7 F 97.8 F Pulse Rate 58 L 66 Respiratory 16 18 Rate Blood Pressure 140/80 140/71 O2 Sat by Pulse 98 96 Oximetry Medical Decision Making - Lab Data Result diagrams: 04/07/20 01:45 04/07/20 01:44 Lab Results 04/07/20 04/07/20 04/07/20 Range/Units 01:44 01:45 01:45 WBC 6.8 (3.8-10.6) k/uL RBC 2.36 L (3.80-5.40) m/uL Hgb 7.3 L (11.4-16.0) gm/dL Hct 22.4 L (34.0-46.0) % MCV 94.9 (80.0-100.0) fL MCH 31.0 (25.0-35.0) pg MCHC 32.7 (31.0-37.0) g/dL RDW 13.6 (11.5-15.5) % Plt Count 333 (150-450) k/uL Neutrophils % 66 % Lymphocytes % 20 % Monocytes % 6 % Eosinophils % 6 % Basophils % 1 % Neutrophils # 4.5 (1.3-7.7) k/uL Lymphocytes # 1.4 (1.0-4.8) k/uL Monocytes # 0.4 (0-1.0) k/uL Eosinophils # 0.4 (0-0.7) k/uL Basophils # 0.1 (0-0.2) k/uL PT 11.0 (9.0-12.0) sec INR 1.1 (<1.2) APTT 26.2 (22.0-30.0) sec Sodium 132 L (137-145) mmol/L Potassium 4.1 (3.5-5.1) mmol/L Chloride 101 (98-107) mmol/L Carbon Dioxide 20 L (22-30) mmol/L Anion Gap 11 mmol/L BUN 42 H (7-17) mg/dL Creatinine 2.50 H (0.52-1.04) mg/dL Est GFR (CKD-EPI)AfAm 21 (>60 ml/min/1.73 sqM) Est GFR (CKD-EPI)NonAf 18 (>60 ml/min/1.73 sqM) Glucose 79 (74-99) mg/dL Calcium 7.9 L (8.4-10.2) mg/dL Total Bilirubin 0.3 (0.2-1.3) mg/dL AST 18 (14-36) U/L ALT 9 (4-34) U/L Alkaline Phosphatase 52 (38-126) U/L Troponin I (0.000-0.034) ng/mL Total Protein 6.7 (6.3-8.2) g/dL Albumin 4.0 (3.5-5.0) g/dL Blood Type Blood Type Confirm Blood Type Recheck Bld Type Recheck Status Antibody Screen Crossmatch Spec Expiration Date 04/07/20 04/07/20 04/07/20 Range/Units 01:45 01:45 01:50 WBC (3.8-10.6) k/uL RBC (3.80-5.40) m/uL Hgb (11.4-16.0) gm/dL Hct (34.0-46.0) % MCV (80.0-100.0) fL MCH (25.0-35.0) pg MCHC (31.0-37.0) g/dL RDW (11.5-15.5) % Plt Count (150-450) k/uL Neutrophils % % Lymphocytes % % Monocytes % % Eosinophils % % Basophils % % Neutrophils # (1.3-7.7) k/uL Lymphocytes # (1.0-4.8) k/uL Monocytes # (0-1.0) k/uL Eosinophils # (0-0.7) k/uL Basophils # (0-0.2) k/uL PT (9.0-12.0) sec INR (<1.2) APTT (22.0-30.0) sec Sodium (137-145) mmol/L Potassium (3.5-5.1) mmol/L Chloride (98-107) mmol/L Carbon Dioxide (22-30) mmol/L Anion Gap mmol/L BUN (7-17) mg/dL Creatinine (0.52-1.04) mg/dL Est GFR (CKD-EPI)AfAm (>60 ml/min/1.73 sqM) Est GFR (CKD-EPI)NonAf (>60 ml/min/1.73 sqM) Glucose (74-99) mg/dL Calcium (8.4-10.2) mg/dL Total Bilirubin (0.2-1.3) mg/dL AST (14-36) U/L ALT (4-34) U/L Alkaline Phosphatase (38-126) U/L Troponin I <0.012 (0.000-0.034) ng/mL Total Protein (6.3-8.2) g/dL Albumin (3.5-5.0) g/dL Blood Type A Positive Blood Type Confirm A Positive Blood Type Recheck No Previous Record Bld Type Recheck Status CABO Indicated Antibody Screen NEGATIVE Crossmatch See Detail Spec Expiration Date 04/10/2020 - 3649 - EKG Data -: EKG Interpreted by [place] EKG shows normal: sinus rhythm, axis (Normal), intervals ([place] interval 140 ms, QTC 522 ms, both normal. QRS duration 146 ms, consistent with Right bundle- branch block), QRS complexes (Right bundle-branch block), ST-T waves (Normal) Rate: normal (Rate 65 bpm) Disposition Clinical Impression: Anemia, Renal insufficiency Disposition: HOME SELF-CARE Condition: Fair Instructions (If sedation given, give patient instructions): Anemia (ED), Chronic Kidney Disease (ED) Is patient prescribed a controlled substance at d/c from ED?: No Referrals: Daniel Saul MD [Primary Care Provider] - 1-2 days
[2020-04-07 01:52] LABS: Basophils # (A) 0.1 k/uL (0-0.2); Basophils % (A) 1 %; Eosinophils # (A) 0.4 k/uL (0-0.7); Eosinophils % (A) 6 %; HCT 22.4 % (34.0-46.0); HGB 7.3 gm/dL (11.4-16.0); Lymphocytes # (A) 1.4 k/uL (1.0-4.8); Lymphocytes % (A) 20 %; MCHC 32.7 g/dL (31.0-37.0); MCV 94.9 fL (80.0-100.0); Mean Platelet Volume 7.5; Monocytes # (A) 0.4 k/uL (0-1.0); Monocytes % (A) 6 %; Neutrophils # (A) 4.5 k/uL (1.3-7.7); Neutrophils % (A) 66 %; Platelet Count 333 k/uL (150-450); RBC 2.36 m/uL (3.80-5.40); RDW 13.6 % (11.5-15.5); WBC 6.8 k/uL (3.8-10.6)
[2020-04-07 02:03] LABS: Calcium 7.9 mg/dL (8.4-10.2); Potassium 4.1 mmol/L (3.5-5.1); Total Bilirubin 0.3 mg/dL (0.2-1.3); Total Protein 6.7 g/dL (6.3-8.2)
[2020-04-07 02:06] LABS: INR 1.1 (<1.2); Partial Thromboplastin Time 26.2 sec (22.0-30.0)
--- NOTE | 2020-04-07 02:57 | XR ---
EXAMINATION TYPE: XR chest 2V DATE OF EXAM: 04/07/2020 COMPARISON: 08/05/2019 HISTORY: Difficulty breathing TECHNIQUE: 2 views FINDINGS: There is no confluent pneumonic infiltrate. There is mild linear density at the lung bases . There are chest leads. Thoracic aorta is atheromatous. There is mild coarsening of the interstitial markings. Heart is not enlarged. IMPRESSION: Increased interstitial markings are improved compared to old exam and could relate to mil d acute heart failure. Heart failure is mostly cleared compared to old exam. Heart appears smaller th an old exam.
[2020-04-07] MEDS ORDERED: ACETAMINOPHEN TAB 325 MG TAB PO STA (04:48)
[2020-04-07 07:33] VITALS: TEMP 98
[2020-04-07 08:00] VITALS: BP 164/85; PULSE 64; RESP 18
== END 2020-04-07 08:01 | disposition home or self-care (01) ==
LOC: EC 00:55
DX: D64.9 Anemia, unspecified (principal); N28.9 Disorder of kidney and ureter, unspecified; F41.0 Panic disorder [episodic paroxysmal anxiety]; K21.9 Gastro-esophageal reflux disease without esophagitis; E78.5 Hyperlipidemia, unspecified; I10 Essential (primary) hypertension; Z79.82 Long term (current) use of aspirin; Z79.899 Other long term (current) drug therapy; Z85.41 Personal history of malignant neoplasm of cervix uteri; Z95.5 Presence of coronary angioplasty implant and graft; Z87.891 Personal history of nicotine dependence
CPT/HCPCS: 36415; 93005; 86900; 86901; 80053; 84484; 85025; 85610; 85730; 86850; 86920; 71046; 99285; P9016

== ENCOUNTER → 2020-04-19 | Outpatient (CLI) | payer MEDICARE, BC ==
[2020-04-19 13:08] LABS: Appearance,Urine Clear (Clear); Bacteria,Urine Rare /hpf; Bilirubin,Urine Negative (Negative); Blood,Urine Trace (Negative); Color,Urine Light Yellow; Glucose,Urine (UA) Negative (Negative); Ketones,Urine Negative (Negative); Leukocyte Esterase,Urine Large (Negative); Mucus,Urine Rare /hpf; Nitrite,Urine Negative (Negative); PH, Urine 5.5 (5.0-8.0); Protein,Urine 2+ (Negative); RBC,Urine 3 /hpf (0-5); Specific Gravity,Urine 1.013 (1.001-1.035); Squamous Epithelial Cell,Urine 10 /hpf (0-4); Urobilinogen,Urine <2.0 mg/dL (<2.0); WBC,Urine 5 /hpf (0-5)
[2020-04-19 13:15] LABS: MCH 32.6 pg (25.0-35.0); MCHC 34.2 g/dL (31.0-37.0); MCV 95.4 fL (80.0-100.0); Mean Platelet Volume 7.5; Platelet Count 270 k/uL (150-450); RBC 2.83 m/uL (3.80-5.40); RDW 13.4 % (11.5-15.5)
[2020-04-19 13:27] LABS: Protein/Creatinine Ratio,Urine 3.047
[2020-04-19 13:33] LABS: HGB 9.2 gm/dL (11.4-16.0)
[2020-04-19 19:43] LABS: African American GFR (CKD) 22.3 (60.0-200.0); Albumin 4.4 g/dL (3.80-4.90); Albumin/Globulin Ratio 1.76 (1.60-3.17); BUN/Creat Ratio 14.58 Ratio (12.00-20.00); Globulin 2.5 g/dL (1.6-3.3); Non-African American GFR(CKD) 19.2 (60.0-200.0); Potassium 4.7 mmol/L (3.5-5.5); Total Bilirubin 0.2 mg/dL (0.2-1.2); Total Protein 6.9 g/dL (6.2-8.2); Uric Acid 7.4 mg/dL (2.9-7.7)
[2020-04-20 15:02] LABS: % Iron Saturation 26.21 (12.00-45.00); Phosphorus 4.6 mg/dL (2.4-5.1)
[2020-04-20 15:11] LABS: Ferritin 161.5 ng/mL (10.0-291.0)
== END | disposition home or self-care (01) ==
LOC: LABWHC1 10:16
PROVIDERS: ATTEND Internal Medicine
DX: N18.5 Chronic kidney disease, stage 5 (principal); D63.1 Anemia in chronic kidney disease; N39.0 Urinary tract infection, site not specified; R80.9 Proteinuria, unspecified; N25.81 Secondary hyperparathyroidism of renal origin; E55.9 Vitamin D deficiency, unspecified; M10.9 Gout, unspecified
CPT/HCPCS: 36415; 80053; 81001; 82306; 82570; 82728; 83540; 83550; 83735; 83970; 84100; 84156; 84550; 85027

== ENCOUNTER → 2020-10-12 | Outpatient (CLI) | payer MEDICARE, BC ==
[2020-10-12 15:09] LABS: Basophils # (A) 0.1 k/uL (0-0.2); Basophils % (A) 1 %; Eosinophils # (A) 0.2 k/uL (0-0.7); Eosinophils % (A) 3 %; HCT 32.9 % (34.0-46.0); HGB 10.8 gm/dL (11.4-16.0); Lymphocytes # (A) 1.4 k/uL (1.0-4.8); Lymphocytes % (A) 18 %; MCH 30.9 pg (25.0-35.0); MCHC 32.7 g/dL (31.0-37.0); MCV 94.4 fL (80.0-100.0); Mean Platelet Volume 7.4; Monocytes # (A) 0.3 k/uL (0-1.0); Monocytes % (A) 4 %; Neutrophils # (A) 5.6 k/uL (1.3-7.7); Neutrophils % (A) 73 %; Platelet Count 264 k/uL (150-450); RBC 3.48 m/uL (3.80-5.40); RDW 14.1 % (11.5-15.5); WBC 7.7 k/uL (3.8-10.6)
[2020-10-12 15:43] LABS: Potassium 5.2 mmol/L (3.5-5.1)
== END | disposition home or self-care (01) ==
LOC: LABPAT 14:41
PROVIDERS: ATTEND Surgery
DX: Z01.818 Encounter for other preprocedural examination (principal); N18.9 Chronic kidney disease, unspecified
CPT/HCPCS: 36415; 80051; 82565; 84520; 85025

== ENCOUNTER 2020-10-19 09:07 | Day surgery (SDC) | payer MEDICARE, BC ==
[2020-10-13 16:14] VITALS: BMI 26.4
[~2020-10-19 09:07] MED LIST changes: -BUPIVACAINE (PF) 0.75% 5 ML, LIDOCAINE 4% (PF) 5 ML, HYALURONIDASE, HUMAN RECOMB 150 UNIT MISCELLANE ONE; -CYCLOPENTOLATE 1% OPHTH SOLN 2 ML BTL OP ONE; +DEXAMETHASONE SOD PHOSPHATE 4 MG/ML 1 ML VIAL IV ONE; -FLURBIPROFEN 0.03% OPHTH DROPS 2.5 ML BTL OP ONE; -GENTAMICIN/PREDNISOL AC OPHTH OINT 3.5GM OPHTHALMIC ONE; +HYDROmorphone 0.5 MG/0.5 ML SYRINGE IVP PRN; +LIDOCAINE 1% (10MG/ML) FOR IV START INTRADERMA PRN; +ONDANSETRON 4 MG/2 ML VIAL IVP ONE; -PHENYLEPHRINE 10% OPHTH DROPS 5 ML BTL OP ONE; -TIMOLOL 0.5% OPHTH SOLN (PF) 0.2 ML DROPERETTE OP ONE
[2020-10-19] MEDS ORDERED: SODIUM CHLORIDE 0.9% 1,000 ML IV ONE (09:40)
[2020-10-19] MEDS ORDERED: MIDAZOLAM 2 MG/2 ML VIAL IV ONE (11:35)
[2020-10-19] MEDS ORDERED: fentaNYL (PF) 50 MCG/ML 2 ML AMP IV ONE (11:35)
[2020-10-19] MEDS ORDERED: LIDOCAINE 1% INJ 10MG/ML (20 ML MDV) ONE (11:41)
[2020-10-19] MEDS ORDERED: HEPARIN SODIUM,PORCINE 5,000 UNIT/ML 1 ML VIAL ONE (11:41)
[2020-10-19] MEDS ORDERED: ePHEDrine SULFATE/0.9% NACL/PF 50 MG/5 ML SYRINGE IV ONE (11:41)
[2020-10-19] MEDS ORDERED: ROPIVACAINE 5 MG/ML 30 ML VIAL ONE (11:41)
[2020-10-19] MEDS ORDERED: PROPOFOL 10 MG/ML 20 ML VIAL IV ONE (11:41)
[2020-10-19] MEDS ORDERED: WATER FOR INJECTION, STERILE 10 ML VIAL IV ONE (11:41)
[2020-10-19] MEDS ORDERED: HEPARIN SODIUM,PORCINE 2,000 UNIT in SODIUM CHLORIDE 0.9% 500 ML 500 ML IRRIGATION ONE (12:12)
[2020-10-19] MEDS ORDERED: ceFAZolin 1,000 MG VIAL IRRIGATION ONE (12:14)
[2020-10-19] MEDS ORDERED: THROMBIN (BOVINE) 5,000 UNIT VIAL TOPICAL ONE (12:15)
[2020-10-19] MEDS ORDERED: GELATIN SPONGE,ABSORB (LARGE) 1 EACH SPONGE TOPICAL ONE (12:15)
--- NOTE | 2020-10-19 12:15 | P.ANPRN ---
Procedure Note - Anesthesia - Nerve Block Performed Left Supraclavicular Time Out Performed: Yes (:33) Date of Procedure: 10/19/20 Procedure Start Time: Procedure Stop Time: Location of Patient: PreOp Indication: Acute Post-Operative Pain, Requested by Surgeon (Dr Pro) Sedation Type: Sedate with meaningful contact maintained Preparation: Sterile Prep Position: Supine Catheter: None Needle Types: Pajunk Needle Gauge: Other (see comment) (22g) Ultrasound used to visualize needle placement: Yes Ultrasound used to observe medication spread: Yes Injectate: 0.5% Ropivacaine (see comment for volume) (20cc) Blood Aspirated: No Pain Paresthesia on Injection Noted: No Resistance on Injection: Normal Image Stored and Saved: Yes Events: Uneventful and Well Tolerated
[2020-10-19 13:12] VITALS: TEMP 97.4
[2020-10-19 13:22] VITALS: RESP 16
[2020-10-19 14:15] VITALS: BP 146/66; PULSE 67
--- NOTE | 2020-10-19 19:12 | P.OP ---
Date of Procedure: 10/19/20 Preoperative Diagnosis: ESRD Postoperative Diagnosis: Same Procedure(s) Performed: Left radiocephalic fistula creation Anesthesia: regional, local Surgeon: Swapnil Pro Pathology: none sent Condition: stable Disposition: PACU Indications for Procedure: 75 year old female with chronic kidney disease in need of access. Had ultrasound vein mapping which demonstrated good size cephalic vein to the wrist. She presents today for radiocephalic fistula creation. Description of Procedure: After written and informed consent was obtained from the patient the patient was brought to the operative suite and laid in a supine position. The left arm was prepped and draped in the usual sterile fashion after appropriate anesthesia was performed per the anesthesiologist. Utilizing ultrasound the cephalic vein was visualized and marked and shown to be good size. A small vertical incision was then created with a 15 blade scalpel just proximal to the wrist and dissection was carried down to the radial artery which was dissected free in a circumferential manner. Proximal distal control was then obtained with vessel loops. Attention was then placed back to the cephalic vein which was located and dissected free in a circumferential manner distally to the wrist. At the wrist it was ligated with silk suture. Further dissection was carried around the vein and the vein was brought over to the radial artery. Serial dilation was then performed on the vein and good backbleeding was noted. Patient was administered 3000 units of heparin and the radial artery was clamped at the proximal and distal aspect. Utilizing 11 blade scalpel and arteriotomy was created and extended with Pott Renee scissors. There was good brisk backbleeding noted from the radial artery and pulsatile blood flow visualized from the proximal aspect. The vein was then spatulated and an end-to-side anastomosis was created with a 7-0 Prolene suture. Prior to last sutures being placed the control was released from the vein revealing good backbleeding and distal control on the radial artery was released revealing good back flow. The proximal control was then released and good pulsatile blood flow was visualized in the fistula and final sutures were secured. The area was copiously irrigated with antibiotic solution. Hemostasis was assured. The vessels were then interrogated with Doppler which demonstrated good multiphasic signal distal to the anastomosis as well as positive bruit within the vein consistent with good fistula creation. Under ultrasound there was pulsatile flow noted in the cephalic vein. The incision was then closed in a multilayer fashion. The skin was cleansed and dressings were placed. Patient does procedure well and was sent to PACU for recovery.
== END 2020-10-19 14:32 | disposition home or self-care (01) ==
LOC: OR 09:07
PROVIDERS: ATTEND Surgery
DX: I12.0 Hypertensive chronic kidney disease with stage 5 chronic kidney disease or end stage renal disease (principal); N18.6 End stage renal disease; E78.5 Hyperlipidemia, unspecified; Z87.891 Personal history of nicotine dependence; K21.9 Gastro-esophageal reflux disease without esophagitis; Z79.82 Long term (current) use of aspirin; Z79.899 Other long term (current) drug therapy; E55.9 Vitamin D deficiency, unspecified; Z90.710 Acquired absence of both cervix and uterus; Z98.49 Cataract extraction status, unspecified eye; Z98.890 Other specified postprocedural states
CPT/HCPCS: 64415; 76942; 84132

== ENCOUNTER → 2021-06-01 | Outpatient (CLI) | payer MEDICARE, BC ==
[2021-06-01 19:13] LABS: Hepatitis A Antibody IgM Nonreactive (Nonreactive); Hepatitis B Core IgM Nonreactive (Nonreactive); Hepatitis B Surface Antibody NonReactive (Nonreactive); Hepatitis B Surface Antigen Nonreactive (Nonreactive); Hepatitis C IgG Antibody Nonreactive (Nonreactive)
== END | disposition home or self-care (01) ==
LOC: LABWHC1 10:55
PROVIDERS: ATTEND Internal Medicine
DX: N18.4 Chronic kidney disease, stage 4 (severe) (principal)
CPT/HCPCS: 36415; 80074; 86706

== ENCOUNTER → 2021-06-01 | Outpatient (CLI) | payer MEDICARE, BC ==
[2021-06-01 11:56] LABS: HCT 29.4 % (34.0-46.0); MCH 33.2 pg (25.0-35.0); MCHC 33.8 g/dL (31.0-37.0); MCV 98.2 fL (80.0-100.0); Mean Platelet Volume 7.4; Platelet Count 326 k/uL (150-450); WBC 9.1 k/uL (3.8-10.6)
[2021-06-01 12:10] LABS: Potassium 4.3 mmol/L (3.5-5.1)
== END | disposition home or self-care (01) ==
LOC: LABPAT 10:49
PROVIDERS: ATTEND Surgery
DX: Z01.818 Encounter for other preprocedural examination (principal); I45.10 Unspecified right bundle-branch block; R00.1 Bradycardia, unspecified; R94.31 Abnormal electrocardiogram [ECG] [EKG]
CPT/HCPCS: 36415; 82565; 84132; 84520; 85027; 93005

== ENCOUNTER 2021-06-02 12:00 | Day surgery (SDC) | payer MEDICARE, BC ==
[2021-06-01 10:28] VITALS: BMI 25.7
[~2021-06-02 12:00] MED LIST changes: +ACETAMINOPHEN TAB 500 MG TAB PO PRN; +HEPARIN SODIUM,PORCINE/PF 5,000 UNIT/0.5 ML SYRINGE SQ PRN; -LIDOCAINE 1% (10MG/ML) FOR IV START INTRADERMA PRN
--- NOTE | 2021-06-02 12:24 | XR ---
EXAMINATION TYPE: XR chest 2V DATE OF EXAM: 06/02/2021 COMPARISON: Chest x-ray April 07, 2020 HISTORY: Presurgical study. TECHNIQUE: Frontal and lateral views of the chest are obtained. FINDINGS: There is chronic parenchymal change without suspicious new focal air space opacity, pleura l effusion, or pneumothorax seen. The cardiac silhouette size is within normal limits. The osseous structures remain demineralized. IMPRESSION: Chronic changes without acute pulmonary process.
[2021-06-02] MEDS ORDERED: LACTATED RINGERS 1,000 ML IV ONE (12:44)
--- NOTE | 2021-06-02 13:45 | P.GSHP ---
History of Present Illness H&P Date: 06/02/21 Chief Complaint: Renal failure 76-year-old female here today for elective dialysis catheter insertion. Patient with worsening kidney function. Describes fatigue and leg swelling. We were contacted by nephrology and requested to proceed with dialysis catheter insertion. Patient has considered hemodialysis as well but has elected to proceed with peritoneal dialysis at this time. Past Medical History Past Medical History: Blood Disorder, Cancer, COPD, Eye Disorder, GERD/Reflux, Hyperlipidemia, Hypertension, Osteoarthritis (OA), Renal Disease Additional Past Medical History / Comment(s): HX CERVICAL CA. KINZA CATARACTS. murmur. IRON DEFICIENCY ANEMIA. History of Any Multi-Drug Resistant Organisms: None Reported Past Surgical History: Heart Catheterization With Stent Additional Past Surgical History / Comment(s): TOTAL RT KNEE. COLONOSCOPY. october heart cath with stent Past Anesthesia/Blood Transfusion Reactions: No Reported Reaction Date of Last Stent Placement:: 05/2019 Smoking Status: Former smoker - Past Family History Mother Family Medical History: No Reported History Medications and Allergies Home Medications Medication Instructions Recorded Confirmed Type Citalopram Hydrobromide 40 mg PO HS 01/17/17 06/01/21 History [Citalopram HBr] Metoprolol Succinate [Toprol Xl] 50 mg PO DAILY 03/11/19 06/01/21 History Aspirin EC [Ecotrin Low Dose] 81 mg PO DAILY 08/05/19 06/01/21 History Rosuvastatin [Crestor] 20 mg PO DAILY 08/05/19 06/01/21 History amLODIPine [Norvasc] 10 mg PO DAILY #30 tab 08/08/19 06/01/21 Rx Albuterol Sulfate [Ventolin HFA] 1 - 2 puff INHALATION RT-Q6H PRN 04/07/20 06/01/21 History Calcium Acetate [Phoslo] 2 tab PO DAILY 04/07/20 06/01/21 History Furosemide [Lasix] 40 mg PO Q48H 04/07/20 06/01/21 History Spironolactone 25 mg PO DAILY 04/07/20 06/01/21 History Losartan Potassium [Cozaar] 25 mg PO HS 09/20/20 06/01/21 History Ergocalciferol [Vitamin D2 (1250 1,250 mcg PO Q14D 10/13/20 06/01/21 History Mcg = 32781 Iu)] Esomeprazole Magnesium [NexIUM] 20 mg PO DAILY 10/13/20 06/01/21 History Potassium Chloride [Potassium 10 meq PO Q48H 10/13/20 06/01/21 History Chloride ER] calcitrioL [Rocaltrol] 0.25 mcg PO DAILY 10/13/20 06/01/21 History Calcium Acetate [Phoslo] 667 mg PO HS 06/01/21 06/01/21 History Allergies Allergy/AdvReac Type Severity Reaction Status Date / Time No Known Allergies Allergy Verified 06/01/21 10:16 Surgical - Exam Vital Signs Temp Pulse Resp BP Pulse Ox 97.8 F 50 L 18 178/74 98 06/02/21 12:43 06/02/21 12:43 06/02/21 12:43 06/02/21 12:43 06/02/21 12:43 Physical exam: General: Well-developed, well-nourished HEENT: Normocephalic, sclerae nonicteric Abdomen: Nontender, nondistended, lower midline incision, no hernias Extremities: No edema Neuro: Alert and oriented Assessment and Plan (1) Renal failure Narrative/Plan: 76-year-old female with chronic renal failure. We'll proceed with peritoneal dialysis catheter insertion at this time. Risks of bleeding, infection, poor catheter function, bladder and bowel injury, peritonitis, hernia. Patient understands and wishes to proceed. Current Visit: Yes Status: Acute Code(s): N19 - UNSPECIFIED KIDNEY FAILURE SNOMED Code(s): 80442327
[2021-06-02] MEDS ORDERED: MIDAZOLAM 2 MG/2 ML VIAL ONE (13:51)
[2021-06-02] MEDS ORDERED: fentaNYL (PF) 50 MCG/ML 2 ML AMP ONE (13:51)
[2021-06-02] MEDS ORDERED: GLYCOPYRROLATE 0.2 MG/ML 2 ML VIAL ONE (13:51)
[2021-06-02] MEDS ORDERED: PROPOFOL 10 MG/ML 20 ML VIAL IV ONE (13:51)
[2021-06-02] MEDS ORDERED: BUPIVACAINE (PF) 0.5% 30 ML VIAL SQ ONE ×2 (14:19)
[2021-06-02 14:41] LABS: Potassium 5.2 mmol/L (3.5-5.1)
[2021-06-02] MEDS ORDERED: ACETAMINOPHEN TAB 325 MG TAB PO PRN (15:12)
[2021-06-02] MEDS ORDERED: NALOXONE 0.4 MG/ML 1 ML VIAL IV PRN (15:12)
--- NOTE | 2021-06-02 15:14 | P.OP ---
Date of Procedure: 06/02/21 Procedure(s) Performed: PREOPERATIVE DIAGNOSIS: Renal failure POSTOPERATIVE DIAGNOSIS: Same PROCEDURE: Peritoneal dialysis catheter insertion SURGEON: Tyrese EBL: Minimal ANESTHESIA: Gen. COMPLICATIONS: None OPERATIVE PROCEDURE: The patient was placed in the operative table in the supine position. The abdomen was prepped and draped in usual sterile fashion. A small vertical incision was made in the right periumbilical location. Dissection down through the subcutaneous tissues took place using electrocautery. The anterior rectus was divided vertically using the scalpel. The rectus was bluntly. The posterior rectus was visualized. An 0 Vicryl pursestring was placed. A small opening in the posterior rectus fascia and peritoneum took place using a Metzenbaum scissors. There were no adhesions to the suture that was placed. The pigtail catheter was advanced into the pelvis over a stylette. No resistance was met. The inner cuff was secured to the fascia using the 0 Vicryl pursestring that was placed. The catheter was tunneled to an exit site in the right lateral lower quadrant. The catheter was connected to the 1 L bag of saline and approximated 800 mL of saline was easily introduced into the peritoneal cavity. The fluid was then allowed to evacuate. The majority of the fluid was returned. The anterior rectus fascia was then reapproximated using a running 0 Vicryl stitch. The subcutaneous tissues reprepped using 3-0 Vicryl sutures and the skin using 4-0 Monocryl sutures. The outpatient dialysis adapter was applied to the end of the catheter. Sterile dressings were then applied after skin glue was placed over the incision. DISPOSITION: Stable to recovery room
[2021-06-02 15:26] VITALS: RESP 16; TEMP 96.8
[2021-06-02 17:32] VITALS: BP 133/87; PULSE 88
== END 2021-06-02 17:45 | disposition home or self-care (01) ==
LOC: OR 12:00
PROVIDERS: ATTEND Surgery
DX: J44.9 Chronic obstructive pulmonary disease, unspecified (principal); K21.9 Gastro-esophageal reflux disease without esophagitis; E78.5 Hyperlipidemia, unspecified; I10 Essential (primary) hypertension; M19.90 Unspecified osteoarthritis, unspecified site; Z85.41 Personal history of malignant neoplasm of cervix uteri; Z98.42 Cataract extraction status, left eye; Z98.41 Cataract extraction status, right eye; R01.1 Cardiac murmur, unspecified; Z95.5 Presence of coronary angioplasty implant and graft; Z96.651 Presence of right artificial knee joint; Z98.890 Other specified postprocedural states; Z87.891 Personal history of nicotine dependence; Z79.82 Long term (current) use of aspirin; Z79.899 Other long term (current) drug therapy; F32.9 Major depressive disorder, single episode, unspecified
CPT/HCPCS: 80051; 71046; 49421; C1752; J2250; J1100; J0690; J2405; J3010; J2704; J1170; J1644

== ENCOUNTER 2021-09-18 09:23 | Emergency (ER) | payer MEDICARE, BC ==
[2021-09-18 09:32] VITALS: TEMP 97.2
[2021-09-18] MEDS ORDERED: MECLIZINE 12.5 MG TAB PO STA (10:25)
[2021-09-18 10:59] LABS: Basophils % (A) 0 %; Eosinophils # (A) 0.1 k/uL (0-0.7); Eosinophils % (A) 2 %; HCT 30.5 % (34.0-46.0); HGB 10.5 gm/dL (11.4-16.0); Lymphocytes # (A) 0.7 k/uL (1.0-4.8); Lymphocytes % (A) 10 %; MCH 33.9 pg (25.0-35.0); MCHC 34.5 g/dL (31.0-37.0); MCV 98.3 fL (80.0-100.0); Mean Platelet Volume 9.9; Monocytes # (A) 0.4 k/uL (0-1.0); Monocytes % (A) 6 %; Neutrophils # (A) 6.2 k/uL (1.3-7.7); Neutrophils % (A) 81 %; Platelet Count 140 k/uL (150-450); RDW 13.8 % (11.5-15.5); WBC 7.6 k/uL (3.8-10.6)
[2021-09-18] MEDS ORDERED: MORPHINE SULFATE 2 MG/ML SYRINGE IVP ONE (11:00)
--- NOTE | 2021-09-18 11:05 | ED ---
General Adult HPI - General Chief complaint: Dizziness Stated complaint: Dizziness/Muscle Spasms Time Seen by Provider: 09/18/21 09:36 Source: patient Mode of arrival: ambulatory Limitations: no limitations - History of Present Illness Initial comments: 76-year-old female past medical history of COPD, hypertension, end-stage renal disease on peritoneal dialysis presents emergency Department with the sensation that the room is spinning. Symptoms are worse with positional changes and have been constant. She has not attempted to take any medications at home for her symptoms. No history of vertigo. Denies any headaches. Does admit to some blurred vision and she states it is difficult to track objects. Has to hold onto to ambulate. Denies any head injuries. Patient is not on any blood thinners. Denies any hearing changes. Admits nausea without vomiting. Denies any chest pain or shortness of breath. Patient recently started peritoneal dialysis one month ago. [employer] is Dr. Mojica. She also reports to bilateral groin cramping. The symptoms are worse with movement. Patient continues to make urine. Denies any changes in her bowel habits. No other alleviating, Perceptin or modifying factors - Related Data Home Medications Medication Instructions Recorded Confirmed Citalopram Hydrobromide 40 mg PO HS 01/17/17 09/18/21 [Citalopram HBr] Metoprolol Succinate [Toprol Xl] 50 mg PO DAILY 03/11/19 09/18/21 Aspirin EC [Ecotrin Low Dose] 81 mg PO DAILY 08/05/19 09/18/21 Rosuvastatin [Crestor] 20 mg PO DAILY 08/05/19 09/18/21 Furosemide [Lasix] 40 mg PO DAILY 04/07/20 09/18/21 Spironolactone 25 mg PO DAILY 04/07/20 09/18/21 Losartan Potassium [Cozaar] 25 mg PO HS 09/20/20 09/18/21 Ergocalciferol [Vitamin D2 (1250 1,250 mcg PO Q14D 10/13/20 09/18/21 Mcg = 89315 Iu)] Esomeprazole Magnesium [NexIUM] 20 mg PO DAILY 10/13/20 09/18/21 Potassium Chloride [Potassium 10 meq PO Q48H 10/13/20 09/18/21 Chloride ER] Calcium Acetate [Phoslo] 667 mg PO TID-W/MEALS 06/01/21 09/18/21 Sodium Bicarbonate Tab 650 mg PO DAILY 09/18/21 09/18/21 Previous Rx's Medication Instructions Recorded amLODIPine [Norvasc] 10 mg PO DAILY #30 tab 08/08/19 Cyclobenzaprine [Flexeril] 10 mg PO TID PRN #15 tab 09/18/21 Meclizine [Antivert] 25 mg PO TID PRN #30 tab 09/18/21 Allergies Allergy/AdvReac Type Severity Reaction Status Date / Time No Known Allergies Allergy Verified 09/18/21 11:10 Review of Systems ROS Statement: Those systems with pertinent positive or pertinent negative responses have been documented in the HPI. ROS Other: All systems not noted in ROS Statement are negative. Past Medical History Past Medical History: Blood Disorder, Cancer, COPD, Eye Disorder, GERD/Reflux, Hyperlipidemia, Hypertension, Osteoarthritis (OA), Renal Disease Additional Past Medical History / Comment(s): HX CERVICAL CA. KINZA CATARACTS. murmur. IRON DEFICIENCY ANEMIA. History of Any Multi-Drug Resistant Organisms: None Reported Past Surgical History: Heart Catheterization With Stent Additional Past Surgical History / Comment(s): TOTAL RT KNEE. COLONOSCOPY. may heart cath with stent Past Anesthesia/Blood Transfusion Reactions: No Reported Reaction Date of Last Stent Placement:: 05/2019 Past Psychological History: Anxiety, Panic Disorder Smoking Status: Never smoker Past Alcohol Use History: None Reported Past Drug Use History: None Reported - Past Family History Mother Family Medical History: No Reported History General Exam Limitations: no limitations Course Vital Signs 09/18/21 09/18/21 09/18/21 09:28 12:19 13:33 Temperature 97.2 F L Pulse Rate 75 70 87 Respiratory 20 20 24 Rate Blood Pressure 138/72 115/60 120/64 O2 Sat by Pulse 90 L 97 97 Oximetry EKG Findings - EKG Comments: EKG Findings:: EKG demonstrates normal sinus rhythm with a ventricular rate of 69. GA interval 140. QRS 150. QTC of 512. Right bundle branch block. No acute ST segment elevations or depressions Medical Decision Making - Medical Decision Making Upon arrival patient was placed into room 6. A thorough history and physical exam was performed. IV is established and laboratory studies are conducted. Patient was given 25 mg of meclizine. Laboratory studies reveal a sodium of 132. Creatinine 4.4. Chest x-ray demonstrates no acute cardiopulmonary pr ocess. Pelvic x-ray demonstrates osteoarthritis of the left hip, correlate for femoral acetabular impingement. Results are discussed with patient. She does report to resolution of her dizziness. Patient is able to get up and ambulate without ataxia. Patient be discharged home with a prescription for meclizine. Instructed to call and follow up with Dr. Saul within the next 2-4 days. She will also be given a presciption for Flexeril for her leg spasms. Instructed that she needs to tell her dialysis nurse. Return to the emergency room for any new or worsening symptoms. Patient discharged home stable condition - Lab Data Result diagrams: 09/18/21 10:37 09/18/21 10:37 Lab Results 09/18/21 09/18/21 09/18/21 Range/Units 10:37 10:37 10:37 WBC 7.6 (3.8-10.6) k/uL RBC 3.10 L (3.80-5.40) m/uL Hgb 10.5 L (11.4-16.0) gm/dL Hct 30.5 L (34.0-46.0) % MCV 98.3 (80.0-100.0) fL MCH 33.9 (25.0-35.0) pg MCHC 34.5 (31.0-37.0) g/dL RDW 13.8 (11.5-15.5) % Plt Count 140 L (150-450) k/uL MPV 9.9 Neutrophils % 81 % Lymphocytes % 10 % Monocytes % 6 % Eosinophils % 2 % Basophils % 0 % Neutrophils # 6.2 (1.3-7.7) k/uL Lymphocytes # 0.7 L (1.0-4.8) k/uL Monocytes # 0.4 (0-1.0) k/uL Eosinophils # 0.1 (0-0.7) k/uL Basophils # 0.0 (0-0.2) k/uL PT 11.1 (9.0-12.0) sec INR 1.0 (<1.2) Sodium 132 L (137-145) mmol/L Potassium 4.1 (3.5-5.1) mmol/L Chloride 94 L (98-107) mmol/L Carbon Dioxide 27 (22-30) mmol/L Anion Gap 11 mmol/L BUN 45 H (7-17) mg/dL Creatinine 4.43 H (0.52-1.04) mg/dL Est GFR (CKD-EPI)AfAm 11 (>60 ml/min/1.73 sqM) Est GFR (CKD-EPI)NonAf 9 (>60 ml/min/1.73 sqM) Glucose 89 (74-99) mg/dL Plasma Lactic Acid Daw[place] (0.7-2.0) mmol/L Calcium 8.7 (8.4-10.2) mg/dL Phosphorus 6.0 H (2.5-4.5) mg/dL Magnesium 1.6 (1.6-2.3) mg/dL Total Bilirubin 0.7 (0.2-1.3) mg/dL AST 28 (14-36) U/L ALT 15 (4-34) U/L Alkaline Phosphatase 47 (38-126) U/L Total Protein 7.6 (6.3-8.2) g/dL Albumin 4.1 (3.5-5.0) g/dL TSH 2.760 (0.465-4.680) mIU/L 09/18/21 Range/Units 10:37 WBC (3.8-10.6) k/uL RBC (3.80-5.40) m/uL Hgb (11.4-16.0) gm/dL Hct (34.0-46.0) % MCV (80.0-100.0) fL MCH (25.0-35.0) pg MCHC (31.0-37.0) g/dL RDW (11.5-15.5) % Plt Count (150-450) k/uL MPV Neutrophils % % Lymphocytes % % Monocytes % % Eosinophils % % Basophils % % Neutrophils # (1.3-7.7) k/uL Lymphocytes # (1.0-4.8) k/uL Monocytes # (0-1.0) k/uL Eosinophils # (0-0.7) k/uL Basophils # (0-0.2) k/uL PT (9.0-12.0) sec INR (<1.2) Sodium (137-145) mmol/L Potassium (3.5-5.1) mmol/L Chloride (98-107) mmol/L Carbon Dioxide (22-30) mmol/L Anion Gap mmol/L BUN (7-17) mg/dL Creatinine (0.52-1.04) mg/dL Est GFR (CKD-EPI)AfAm (>60 ml/min/1.73 sqM) Est GFR (CKD-EPI)NonAf (>60 ml/min/1.73 sqM) Glucose (74-99) mg/dL Plasma Lactic Acid Daw[place] 1.6 (0.7-2.0) mmol/L Calcium (8.4-10.2) mg/dL Phosphorus (2.5-4.5) mg/dL Magnesium (1.6-2.3) mg/dL Total Bilirubin (0.2-1.3) mg/dL AST (14-36) U/L ALT (4-34) U/L Alkaline Phosphatase (38-126) U/L Total Protein (6.3-8.2) g/dL Albumin (3.5-5.0) g/dL TSH (0.465-4.680) mIU/L Disposition Clinical Impression: Vertigo, Pelvic pain, Hypomagnesemia, ESRD on peritoneal dialysis Disposition: HOME SELF-CARE Condition: Stable Instructions (If sedation given, give patient instructions): Dizziness (ED) Additional Instructions: Please take the Meclizine up to three times daily. Cut the flexeril in half and see if you have improvement in your lower extremity cramping. If not, you make take a full tablet. Please follow up with your PCP in regards in your symptoms. You should also let your dialysis nurse know. Return to the ED for any new or worsening symptoms. Prescriptions: Meclizine [Antivert] 25 mg PO TID PRN #30 tab PRN Reason: Vertigo Cyclobenzaprine [Flexeril] 10 mg PO TID PRN #15 tab PRN Reason: Muscle Spasm Is patient prescribed a controlled substance at d/c from ED?: No Referrals: Daniel Saul MD [Primary Care Provider] - 1-2 days Time of Disposition: 13:29
[2021-09-18 11:10] LABS: ALT 15 U/L (4-34); African American GFR (CKD) 11 (>60 ml/min/1.73 sqM); Albumin 4.1 g/dL (3.5-5.0); Anion Gap 11 mmol/L; Blood Urea Nitrogen 45 mg/dL (7-17); Calcium 8.7 mg/dL (8.4-10.2); Carbon Dioxide 27 mmol/L (22-30); Chloride 94 mmol/L (98-107); Glucose 89 mg/dL (74-99); Non-African American GFR(CKD) 9 (>60 ml/min/1.73 sqM); Sodium 132 mmol/L (137-145); Total Bilirubin 0.7 mg/dL (0.2-1.3); Total Protein 7.6 g/dL (6.3-8.2)
[2021-09-18 11:21] LABS: AST 28 U/L (14-36); Alkaline Phosphatase 47 U/L (38-126); Magnesium 1.6 mg/dL (1.6-2.3); Potassium 4.1 mmol/L (3.5-5.1); Prothrombin Time 11.1 sec (9.0-12.0)
--- NOTE | 2021-09-18 12:03 | XR ---
EXAMINATION TYPE: XR chest 2V DATE OF EXAM: 09/18/2021 COMPARISON: Chest x-ray 06/02/2021 HISTORY: Dizzy TECHNIQUE: Frontal and lateral views of the chest are obtained. FINDINGS: There is no focal air space opacity, pleural effusion, or pneumothorax seen. Prominent rosa g volume may be indicative of underlying COPD. There is thoracic spondylosis. Interstitium is increas ed similar to prior exam. The cardiac silhouette size is within normal limits. The osseous structu res are intact. IMPRESSION: No acute cardiopulmonary process.
--- NOTE | 2021-09-18 12:11 | XR ---
AP pelvis HISTORY: Groin pain Single frontal view of the pelvis, no comparisons There is marginal spurring, concentric joint space loss in the left hip. Dense vascular calcification s are noted, there are overlying artifacts. Probable dialysis peritoneal catheter present overlying t he right hemipelvis. No evident fracture or dislocation. Suspect there may be some chondrocalcinosis. Degenerative disc changes are noted in the lower lumbar spine. Probable vascular calcifications note d within the pelvis. IMPRESSION: Osteoarthritis left hip, correlate for femoral acetabular impingement. Postop change and additional findings above.
[2021-09-18] MEDS ORDERED: MAGNESIUM OXIDE 400 MG TAB PO STA (13:16)
[2021-09-18] MEDS ORDERED: CYCLOBENZAPRINE 10MG STARTER 3 TAB BTL PO STA (13:16)
[2021-09-18 13:35] VITALS: BP 120/64; PULSE 87; RESP 24
== END 2021-09-18 13:35 | disposition home or self-care (01) ==
LOC: EC 09:23
DX: R42 Dizziness and giddiness (principal); R10.2 Pelvic and perineal pain; E83.42 Hypomagnesemia; N18.6 End stage renal disease; Z99.2 Dependence on renal dialysis; J44.9 Chronic obstructive pulmonary disease, unspecified; E78.5 Hyperlipidemia, unspecified; I10 Essential (primary) hypertension; M19.90 Unspecified osteoarthritis, unspecified site; F41.9 Anxiety disorder, unspecified; F43.10 Post-traumatic stress disorder, unspecified
CPT/HCPCS: 36415; 93005; 80053; 84443; 83605; 83735; 84100; 85025; 85610; 72170; 71046; 99284; 96374; J2270

== ENCOUNTER 2021-09-20 12:27 | Observation (INO) | payer MEDICARE, BC ==
[2021-09-20] MEDS ORDERED: MORPHINE SULFATE 2 MG/ML SYRINGE IVP STA (15:07)
[2021-09-20] MEDS ORDERED: DIAZEPAM 5 MG/ML 2 ML INJ IVP STA (15:07)
--- NOTE | 2021-09-20 15:27 | ED ---
General Adult HPI - General Chief complaint: Recheck/Abnormal Lab/Rx Stated complaint: Leg Spasms Time Seen by Provider: 09/20/21 14:17 Source: family Mode of arrival: EMS Limitations: no limitations - History of Present Illness Initial comments: This 76-year-old female who is on dialysis presents to the emergency department for neck spasms, leg spasms, and dizziness. Patient states she does get dialysis yesterday due to her dizziness. Patient was here on Sunday and given Flexeril and meclizine for home which had not relieved any of the patient's symptoms. Patient states she saw Dr. Andrews on Sunday who advised her to come back if symptoms remain the same for possible MRI. She states the right side of her neck is still having pain with spasms and every time she goes from laying to sitting or sitting to standing she starts to spin. Patient denies any chest pain, shortness of breath, abdominal pain or change in bowel or bladder, change in vision, headache, lightheadedness, fever. - Related Data Home Medications Medication Instructions Recorded Confirmed Citalopram Hydrobromide 40 mg PO HS 01/17/17 09/20/21 [Citalopram HBr] Metoprolol Succinate [Toprol Xl] 50 mg PO DAILY 03/11/19 09/20/21 Aspirin EC [Ecotrin Low Dose] 81 mg PO DAILY 08/05/19 09/20/21 Rosuvastatin [Crestor] 20 mg PO DAILY 08/05/19 09/20/21 Furosemide [Lasix] 40 mg PO DAILY 04/07/20 09/20/21 Spironolactone 25 mg PO DAILY 04/07/20 09/20/21 Losartan Potassium [Cozaar] 25 mg PO HS 09/20/20 09/20/21 Ergocalciferol [Vitamin D2 (1250 1,250 mcg PO Q14D 10/13/20 09/20/21 Mcg = 98192 Iu)] Esomeprazole Magnesium [NexIUM] 20 mg PO DAILY 10/13/20 09/20/21 Potassium Chloride [Potassium 10 meq PO Q48H 10/13/20 09/20/21 Chloride ER] Calcium Acetate [Phoslo] 667 mg PO TID-W/MEALS 06/01/21 09/20/21 Sodium Bicarbonate Tab 650 mg PO DAILY 09/18/21 09/20/21 Previous Rx's Medication Instructions Recorded amLODIPine [Norvasc] 10 mg PO DAILY #30 tab 08/08/19 Cyclobenzaprine [Flexeril] 10 mg PO TID PRN #15 tab 09/18/21 Meclizine [Antivert] 25 mg PO TID PRN #30 tab 09/18/21 Allergies Allergy/AdvReac Type Severity Reaction Status Date / Time No Known Allergies Allergy Verified 09/20/21 19:01 Review of Systems ROS Statement: Those systems with pertinent positive or pertinent negative responses have been documented in the HPI. ROS Other: All systems not noted in ROS Statement are negative. Past Medical History Past Medical History: Blood Disorder, Cancer, COPD, Eye Disorder, GERD/Reflux, Hyperlipidemia, Hypertension, Osteoarthritis (OA), Renal Disease Additional Past Medical History / Comment(s): HX CERVICAL CA. KINZA CATARACTS. murmur. IRON DEFICIENCY ANEMIA. History of Any Multi-Drug Resistant Organisms: None Reported Past Surgical History: Heart Catheterization With Stent Additional Past Surgical History / Comment(s): TOTAL RT KNEE. COLONOSCOPY. may heart cath with stent Past Anesthesia/Blood Transfusion Reactions: No Reported Reaction Date of Last Stent Placement:: 05/2019 Past Psychological History: Anxiety, Panic Disorder Smoking Status: Never smoker Past Alcohol Use History: None Reported Past Drug Use History: None Reported - Past Family History Mother Family Medical History: No Reported History General Exam Limitations: no limitations General appearance: alert, in no apparent distress Head exam: Present: atraumatic, normocephalic, normal inspection Eye exam: Present: normal appearance, EOMI ENT exam: Present: normal exam, mucous membranes moist Neck exam: Present: tenderness (Tender on the right side of neck radiating down to her right shoulder and palpated. Left side of neck is not tender to palpation), full ROM (States she gets dizzy when she moves her head around in a [place] or looks from side to side.). Absent: meningismus Respiratory exam: Present: normal lung sounds bilaterally. Absent: respiratory distress, wheezes, rales, rhonchi, stridor Cardiovascular Exam: Present: regular rate, normal rhythm, normal heart sounds. Absent: systolic murmur, diastolic murmur, rubs, gallop, clicks GI/Abdominal exam: Present: soft, normal bowel sounds. Absent: distended, tenderness, guarding, rebound, rigid Extremities exam: Present: full ROM. Absent: tenderness (States she gets muscle spasms near her groin that radiates down her pain, however does not have any pain to palpation on either side of her groin or legs.), pedal edema, joint swelling, calf tenderness Back exam: Present: normal inspection, paraspinal tenderness (Right side of neck). Absent: CVA tenderness (R), CVA tenderness (L), vertebral tenderness Neurological exam: Present: alert, oriented X3, CN II-XII intact Psychiatric exam: Present: normal affect, normal mood Skin exam: Present: warm, dry, intact, normal color. Absent: rash Course Vital Signs 09/20/21 09/20/21 09/20/21 13:05 14:19 15:46 Temperature 98.2 F Pulse Rate 85 81 76 Respiratory 20 18 18 Rate Blood Pressure 117/72 116/72 O2 Sat by Pulse 99 96 98 Oximetry 09/20/21 09/20/21 09/20/21 17:22 18:32 19:05 Temperature Pulse Rate 72 71 Respiratory 18 18 18 Rate Blood Pressure 129/65 107/63 O2 Sat by Pulse 96 96 Oximetry EKG Findings - EKG Comments: EKG Findings:: EKG: Normal sinus rhythm. Ventricular rate 79 bpm. MT interval 152. QRS duration 144. QT/QTc 452/518. Right bundle branch block with no change from prior EKG Medical Decision Making - Medical Decision Making This 76-year-old female presents to the emergency department with neck muscle spasms, bilateral leg muscle spasms, and intractable dizziness. Patient was here on Sunday with the same complaint. Brain CT impression: Age-related atrophic and chronic small vessel ischemic change without acute intracranial process seen at this time. Chest x-ray impression: No acute cardiopulmonary disease or process. Patient was given Valium and morphine and stated her pain had improved, however, she still states she is having the dizziness especially with movement of her head from side to side or changes in position of her body. Discussed case with my attending, Dr. Leiva. Discussed case with Dr. Saul who agreed to gave patient admitted to his services with ENT and nephrology consulted. Per Dr. Saul, she given a dose of Solu-Medrol for possible inner ear infection. Contacted for her peritoneal dialysis she missed yesterday, I contacted pharmacy and set her up for peritoneal dialysis at 1.5% solution, 2.5 liters q6hr. Patient agreed to be admitted to the hospital for further evaluation. - Lab Data Result diagrams: 09/20/21 15:32 09/20/21 15:32 Lab Results 09/20/21 09/20/21 09/20/21 Range/Units 15:32 15:32 15:37 WBC 12.2 H (3.8-10.6) k/uL RBC 3.64 L (3.80-5.40) m/uL Hgb 12.0 (11.4-16.0) gm/dL Hct 36.1 (34.0-46.0) % MCV 99.2 (80.0-100.0) fL MCH 33.0 (25.0-35.0) pg MCHC 33.3 (31.0-37.0) g/dL RDW 14.3 (11.5-15.5) % Plt Count 284 D (150-450) k/uL MPV 7.5 Neutrophils % 89 % Lymphocytes % 6 % Monocytes % 4 % Eosinophils % 1 % Basophils % 0 % Neutrophils # 10.8 H (1.3-7.7) k/uL Lymphocytes # 0.7 L (1.0-4.8) k/uL Monocytes # 0.5 (0-1.0) k/uL Eosinophils # 0.1 (0-0.7) k/uL Basophils # 0.0 (0-0.2) k/uL Macrocytosis Slight Sodium 128 L (137-145) mmol/L Potassium 3.6 (3.5-5.1) mmol/L Chloride 92 L (98-107) mmol/L Carbon Dioxide 21 L (22-30) mmol/L Anion Gap 15 mmol/L BUN 53 H (7-17) mg/dL Creatinine 4.51 H (0.52-1.04) mg/dL Est GFR (CKD-EPI)AfAm 10 (>60 ml/min/1.73 sqM) Est GFR (CKD-EPI)NonAf 9 (>60 ml/min/1.73 sqM) Glucose 83 (74-99) mg/dL Calcium 8.5 (8.4-10.2) mg/dL Magnesium 1.7 (1.6-2.3) mg/dL Total Bilirubin 0.7 (0.2-1.3) mg/dL AST 31 (14-36) U/L ALT 16 (4-34) U/L Alkaline Phosphatase 66 (38-126) U/L Total Protein 6.7 (6.3-8.2) g/dL Albumin 3.7 (3.5-5.0) g/dL Coronavirus (PCR) (Not Detectd) 09/20/21 Range/Units 18:37 WBC (3.8-10.6) k/uL RBC (3.80-5.40) m/uL Hgb (11.4-16.0) gm/dL Hct (34.0-46.0) % MCV (80.0-100.0) fL MCH (25.0-35.0) pg MCHC (31.0-37.0) g/dL RDW (11.5-15.5) % Plt Count (150-450) k/uL MPV Neutrophils % % Lymphocytes % % Monocytes % % Eosinophils % % Basophils % % Neutrophils # (1.3-7.7) k/uL Lymphocytes # (1.0-4.8) k/uL Monocytes # (0-1.0) k/uL Eosinophils # (0-0.7) k/uL Basophils # (0-0.2) k/uL Macrocytosis Sodium (137-145) mmol/L Potassium (3.5-5.1) mmol/L Chloride (98-107) mmol/L Carbon Dioxide (22-30) mmol/L Anion Gap mmol/L BUN (7-17) mg/dL Creatinine (0.52-1.04) mg/dL Est GFR (CKD-EPI)AfAm (>60 ml/min/1.73 sqM) Est GFR (CKD-EPI)NonAf (>60 ml/min/1.73 sqM) Glucose (74-99) mg/dL Calcium (8.4-10.2) mg/dL Magnesium (1.6-2.3) mg/dL Total Bilirubin (0.2-1.3) mg/dL AST (14-36) U/L ALT (4-34) U/L Alkaline Phosphatase (38-126) U/L Total Protein (6.3-8.2) g/dL Albumin (3.5-5.0) g/dL Coronavirus (PCR) Not Detected (Not Detectd) Disposition Clinical Impression: Vestibulopathy, Muscle spasm, Kidney disease Disposition: ADMITTED IP TO THIS HOSP Condition: Stable Is patient prescribed a controlled substance at d/c from ED?: No Time of Disposition: 18:27
[2021-09-20 15:53] LABS: Basophils % (A) 0 %; Eosinophils # (A) 0.1 k/uL (0-0.7); Eosinophils % (A) 1 %; HCT 36.1 % (34.0-46.0); Lymphocytes # (A) 0.7 k/uL (1.0-4.8); Lymphocytes % (A) 6 %; MCHC 33.3 g/dL (31.0-37.0); MCV 99.2 fL (80.0-100.0); Macrocytosis Slight; Mean Platelet Volume 7.5; Monocytes # (A) 0.5 k/uL (0-1.0); Monocytes % (A) 4 %; Neutrophils # (A) 10.8 k/uL (1.3-7.7); Neutrophils % (A) 89 %; RBC 3.64 m/uL (3.80-5.40); RDW 14.3 % (11.5-15.5); WBC 12.2 k/uL (3.8-10.6)
[2021-09-20 16:00] LABS: Albumin 3.7 g/dL (3.5-5.0); Calcium 8.5 mg/dL (8.4-10.2); Potassium 3.6 mmol/L (3.5-5.1); Total Bilirubin 0.7 mg/dL (0.2-1.3); Total Protein 6.7 g/dL (6.3-8.2)
--- NOTE | 2021-09-20 16:14 | CT ---
EXAMINATION TYPE: CT brain wo con DATE OF EXAM: 09/20/2021 COMPARISON: none HISTORY: vertigo CT DLP: 1099.[address] of the brain was performed. The ventricles, basal cisterns and sulci overlying the cerebral convexities demonstrate mild enlargem ent. There is no evidence for intracranial hemorrhage or sulcal effacement. There is decreased attenuation about the periventricular white matter and deep white matter of both c erebral hemispheres, compatible with chronic small vessel ischemia. Differential diagnosis does inclu de demyelination. No mass effects are seen.No midline shift. Osseous calvarium is intact. If symptoms persist consider MRI. IMPRESSION: 1. Age related atrophic and chronic small vessel ischemic change without acute intracranial process s een at this time.
[2021-09-20 16:16] LABS: Platelet Count 284 k/uL (150-450)
[2021-09-20] MEDS ORDERED: ONDANSETRON 4 MG/2 ML VIAL IVP PRN (17:19)
[2021-09-20] MEDS ORDERED: NALOXONE 0.4 MG/ML 1 ML VIAL IV PRN (17:19)
[2021-09-20] MEDS ORDERED: methylPREDNISolone SOD SUCCI 125 MG/2 ML VIAL IV STA (17:26)
[2021-09-20] MEDS ORDERED: HYDROmorphone 0.2 MG/1 ML SYRINGE IVP STA (17:28)
[2021-09-20] MEDS: MORPHINE SULFATE 4 MG/ML SYRINGE IV PRN ×2 (17:48→23:55)
--- NOTE | 2021-09-20 18:14 | XR ---
EXAMINATION TYPE: XR chest 2V DATE OF EXAM: 09/20/2021 5:35 PM COMPARISON:Chest radiographs from [id number] TECHNIQUE: Frontal and lateral views of the chest. CLINICAL INDICATION:Female, 76 years old with history of CHF; FINDINGS: Lungs/Pleura: There is no evidence of pleural effusion, focal consolidation, or pneumothorax. Pulmonary vascularity: Unremarkable. Heart/mediastinum: Cardiomediastinal silhouette is unremarkable. Musculoskeletal:No acute osseous pathology. IMPRESSION: No acute cardiopulmonary disease/process.
[2021-09-20] MEDS ORDERED: DIALYSIS (PERIT 1.5%) 2,500 ML 37.5 G/2,500 ML BAG INTRAPERIT SCH (19:00)
[2021-09-20] MEDS ORDERED: CYCLOBENZAPRINE 10 MG TAB PO PRN (21:54)
[2021-09-20] MEDS ORDERED: POTASSIUM CHLORIDE ER 10 MEQ TAB.ER.PRT PO SCH (22:00)
[2021-09-20] MEDS: MECLIZINE 25 MG TAB PO SCH (23:51)
[2021-09-20] MEDS: LOSARTAN 25 MG TAB PO SCH (23:54)
[2021-09-20] MEDS: DIALYSIS (PERIT 1.5%) 2,500 ML 37.5 G/2,500 ML BAG INTRAPERIT SCH (23:57)
[2021-09-21] MEDS: DIALYSIS (PERIT 1.5%) 2,500 ML 37.5 G/2,500 ML BAG INTRAPERIT SCH ×3 (06:31→17:53)
[2021-09-21] MEDS ORDERED: FUROSEMIDE 40 MG TAB PO SCH (09:00)
[2021-09-21] MEDS: ATORVASTATIN 20 MG TAB PO SCH (09:25)
[2021-09-21] MEDS: ASPIRIN 81 MG PO SCH (09:25)
[2021-09-21] MEDS: amLODIPine 10 MG TAB PO SCH (09:25)
[2021-09-21] MEDS: SODIUM BICARBONATE TAB 650 MG TAB PO SCH (09:27)
[2021-09-21] MEDS: METOPROLOL SUCCINATE (ER) 50 MG TAB.ER.24H PO SCH (09:27)
[2021-09-21] MEDS: SPIRONOLACTONE 25 MG TAB PO SCH (09:27)
[2021-09-21] MEDS: CALCIUM ACETATE 667 MG TAB PO SCH ×3 (09:28→17:27)
[2021-09-21] MEDS: MECLIZINE 25 MG TAB PO SCH ×3 (09:29→21:43)
--- NOTE | 2021-09-21 12:05 | P.NPCON ---
History of Present Illness - Reason for Consult end stage renal disease - History of Present Illness Patient is a 76-year-old female with end-stage renal disease maintained on peritoneal dialysis which was started about 3 weeks ago. Patient has beeN admitted with complaints of dizziness. Patient states that she has been dizzy when she lifts her head from bed. She is not able to get around much. She d enies any recent respiratory symptoms or a URI. Patient has not had any issues with her peritoneal dialysis. She has been tolerating it fairly well. No abdominal pain no shortness of breath chest pains nausea vomiting. Review of Systems As per HPI other systems negative Past Medical History Past Medical History: Blood Disorder, Cancer, COPD, Eye Disorder, GERD/Reflux, Hyperlipidemia, Hypertension, Osteoarthritis (OA), Renal Disease Additional Past Medical History / Comment(s): HX CERVICAL CA. KINZA CATARACTS. murmur. IRON DEFICIENCY ANEMIA. History of Any Multi-Drug Resistant Organisms: None Reported Past Surgical History: Heart Catheterization With Stent Additional Past Surgical History / Comment(s): TOTAL RT KNEE. COLONOSCOPY. may heart cath with stent Past Anesthesia/Blood Transfusion Reactions: No Reported Reaction Date of Last Stent Placement:: 05/2019 Past Psychological History: Anxiety, Panic Disorder Smoking Status: Never smoker Past Alcohol Use History: None Reported Past Drug Use History: None Reported - Past Family History Mother Family Medical History: No Reported History Medications and Allergies Home Medications Medication Instructions Recorded Confirmed Type Citalopram Hydrobromide 40 mg PO HS 01/17/17 09/20/21 History [Citalopram HBr] Metoprolol Succinate [Toprol Xl] 50 mg PO DAILY 03/11/19 09/20/21 History Aspirin EC [Ecotrin Low Dose] 81 mg PO DAILY 08/05/19 09/20/21 History Rosuvastatin [Crestor] 20 mg PO DAILY 08/05/19 09/20/21 History amLODIPine [Norvasc] 10 mg PO DAILY #30 tab 08/08/19 09/20/21 Rx Furosemide [Lasix] 40 mg PO DAILY 04/07/20 09/20/21 History Spironolactone 25 mg PO DAILY 04/07/20 09/20/21 History Losartan Potassium [Cozaar] 25 mg PO HS 09/20/20 09/20/21 History Ergocalciferol [Vitamin D2 (1250 1,250 mcg PO Q14D 02/17/21 01/25/22 History Mcg = 04087 Iu)] Esomeprazole Magnesium [NexIUM] 20 mg PO DAILY 10/13/20 09/20/21 History Potassium Chloride [Potassium 10 meq PO Q48H 10/13/20 09/20/21 History Chloride ER] Calcium Acetate [Phoslo] 667 mg PO TID-W/MEALS 06/01/21 09/20/21 History Cyclobenzaprine [Flexeril] 10 mg PO TID PRN #15 tab 09/18/21 09/20/21 Rx Meclizine [Antivert] 25 mg PO TID PRN #30 tab 09/18/21 09/20/21 Rx Sodium Bicarbonate Tab 650 mg PO DAILY 09/18/21 09/20/21 History Allergies Allergy/AdvReac Type Severity Reaction Status Date / Time No Known Allergies Allergy Verified 09/20/21 19:01 Physical Exam Vitals: Vital Signs Temp Pulse Pulse Resp BP BP BP 09/21/21 07:44 97.7 F 69 16 116/76 09/21/21 04:56 97.7 F 79 18 109/67 09/21/21 00:40 97.4 F L 70 18 138/74 09/21/21 00:06 98.5 F 77 15 120/74 09/20/21 20:07 76 20 123/69 09/20/21 20:00 70 18 09/20/21 19:05 71 18 107/63 09/20/21 18:32 18 09/20/21 17:22 72 18 129/65 09/20/21 15:46 76 18 09/20/21 14:19 81 18 116/72 09/20/21 13:05 98.2 F 85 20 117/72 Pulse Ox 09/21/21 07:44 97 09/21/21 04:56 97 09/21/21 00:40 94 L 09/21/21 00:06 09/20/21 20:07 96 09/20/21 20:00 09/20/21 19:05 96 09/20/21 18:32 09/20/21 17:22 96 09/20/21 15:46 98 09/20/21 14:19 96 09/20/21 13:05 99 Intake and Output 01/09/21/21 09/21/21 22:59 06:59 14:59 Intake Total 200 Balance 200 Intake: Oral 200 Other: Weight 56.699 kg Patient is awake comfortable alert oriented 3. She is not in any acute distress. Examination of the heart S1 and S2 Examination lungs bilateral breath sounds are heard Abdomen is soft nontender Examination lower extremities shows no edema VENEER SAWYER exam grossly intact No nystagmus noted Results - Lab Results Most recent lab results Calcium 8.5 mg/dL (8.4-10.2) 09/20/21 15:32 Magnesium 1.7 mg/dL (1.6-2.3) 09/20/21 15:37 09/20/21 15:32 09/20/21 15:32 Assessment and Plan Assessment: 1. End-stage renal disease maintained on peritoneal dialysis. Will continue with current exchanges, patient is tolerating that well 2. Dizziness/vertigo, no hypotension noted however I will order orthostatics. Consider ENT evaluation if the orthostatics are negative. 3. Hyponatremia most likely hypovolemic, repeat labs today continue current PD exchanges and increase oral intake particularly protein 4. Hypokalemia maintained on supplementation Plan: 1. Continue current PD exchanges 2. Encourage increased oral intake. 3. Repeat labs in a.m. 4. Check orthostatics Thank you for the consultation we'll continue to follow the patient with you during her hospitalization
[2021-09-21] MEDS ORDERED: ONDANSETRON 4 MG TAB PO PRN (12:39)
[2021-09-21] MEDS ORDERED: diazePAM 2 MG TAB PO PRN (12:40)
[2021-09-21 13:32] LABS: Basophils % (A) 0 %; Eosinophils % (A) 0 %; HCT 35.8 % (34.0-46.0); HGB 11.7 gm/dL (11.4-16.0); Lymphocytes # (A) 0.6 k/uL (1.0-4.8); Lymphocytes % (A) 4 %; MCH 32.7 pg (25.0-35.0); MCHC 32.7 g/dL (31.0-37.0); MCV 100.1 fL (80.0-100.0); Mean Platelet Volume 7.8; Monocytes # (A) 0.4 k/uL (0-1.0); Monocytes % (A) 3 %; Neutrophils # (A) 13.2 k/uL (1.3-7.7); Neutrophils % (A) 93 %; Platelet Count 295 k/uL (150-450); RBC 3.57 m/uL (3.80-5.40); RDW 13.7 % (11.5-15.5); WBC 14.3 k/uL (3.8-10.6)
[2021-09-21 14:12] LABS: ALT 19 U/L (4-34); AST 29 U/L (14-36); African American GFR (CKD) 9 (>60 ml/min/1.73 sqM); Albumin 3.7 g/dL (3.5-5.0); Albumin/Globulin Ratio 1.2; Alkaline Phosphatase 53 U/L (38-126); Anion Gap 16 mmol/L; Blood Urea Nitrogen 61 mg/dL (7-17); Calcium 8.7 mg/dL (8.4-10.2); Carbon Dioxide 24 mmol/L (22-30); Chloride 90 mmol/L (98-107); Globulin 3.1 g/dL; Glucose 132 mg/dL (74-99); Non-African American GFR(CKD) 8 (>60 ml/min/1.73 sqM); Potassium 3.7 mmol/L (3.5-5.1); Sodium 130 mmol/L (137-145); Total Bilirubin 0.5 mg/dL (0.2-1.3); Total Protein 6.8 g/dL (6.3-8.2)
[2021-09-21] MEDS ORDERED: CALCIUM CARBONATE 500 MG CHEWABLE PO PRN (14:33)
--- NOTE | 2021-09-21 15:32 | P.HPIM ---
History of Present Illness H&P Date: 09/21/21 Chief Complaint: Dizzy History and Physical and Discharge Summary This is a 76-year-old female with past medical history of COPD, gastroesophageal reflux disease, hypertension, cervical cancer, iron deficient anemia, anxiety, panic disorder, end-stage renal disease maintained on peritoneal dialysis and multiple other medical issues presented to the ER with dizziness upon turning her head from [id number], intermittent neck spasms. Reports she missed doing. Patient reported she missed her peritoneal dialysis the day prior to admission. Denies chest pain, palpitations or shortness of breath. Denies any visual deficits, headaches. Denies any chills or fever. Afebrile, WBC 12.2, sodium 128, BUN 53, creatinine 4.51. Coronavirus detected.brain CT reported age-related atrophy and chronic small vessel ischemic changes without acute intracranial process. Chest x-ray reported no acute cardiopulmonary process. EKG normal sinus rhythm, right bundle-branch block. Magnesium 1.7. Review of Systems ROS Statement: Those systems with pertinent positive or pertinent negative responses have been documented in the HPI. ROS Other: All systems not noted in ROS Statement are negative. Past Medical History Past Medical History: Blood Disorder, Cancer, COPD, Eye Disorder, GERD/Reflux, Hyperlipidemia, Hypertension, Osteoarthritis (OA), Renal Disease Additional Past Medical History / Comment(s): HX CERVICAL CA. KINZA CATARACTS. murmur. IRON DEFICIENCY ANEMIA. History of Any Multi-Drug Resistant Organisms: None Reported Past Surgical History: Heart Catheterization With Stent Additional Past Surgical History / Comment(s): TOTAL RT KNEE. COLONOSCOPY. may heart cath with stent Past Anesthesia/Blood Transfusion Reactions: No Reported Reaction Date of Last Stent Placement:: 05/2019 Past Psychological History: Anxiety, Panic Disorder Smoking Status: Never smoker Past Alcohol Use History: None Reported Past Drug Use History: None Reported - Past Family History Mother Family Medical History: No Reported History Medications and Allergies Home Medications Medication Instructions Recorded Confirmed Type Citalopram Hydrobromide 40 mg PO HS 01/17/17 09/20/21 History [Citalopram HBr] Metoprolol Succinate [Toprol Xl] 50 mg PO DAILY 03/11/19 09/20/21 History Aspirin EC [Ecotrin Low Dose] 81 mg PO DAILY 08/05/19 09/20/21 History Rosuvastatin [Crestor] 20 mg PO DAILY 08/05/19 09/20/21 History amLODIPine [Norvasc] 10 mg PO DAILY #30 tab 08/08/19 09/20/21 Rx Furosemide [Lasix] 40 mg PO DAILY 04/07/20 09/20/21 History Spironolactone 25 mg PO DAILY 04/07/20 09/20/21 History Losartan Potassium [Cozaar] 25 mg PO HS 09/20/20 09/20/21 History Ergocalciferol [Vitamin D2 (1250 1,250 mcg PO Q14D 10/13/20 09/20/21 History Mcg = 02354 Iu)] Esomeprazole Magnesium [NexIUM] 20 mg PO DAILY 10/13/20 09/20/21 History Potassium Chloride [Potassium 10 meq PO Q48H 10/13/20 09/20/21 History Chloride ER] Calcium Acetate [PhosLo] 667 mg PO TID-W/MEALS 06/01/21 09/20/21 History Cyclobenzaprine [Flexeril] 10 mg PO TID PRN #15 tab 09/18/21 09/20/21 Rx Meclizine [Antivert] 25 mg PO TID PRN #30 tab 09/18/21 09/20/21 Rx Sodium Bicarbonate Tab 650 mg PO DAILY 09/18/21 09/20/21 History Allergies Allergy/AdvReac Type Severity Reaction Status Date / Time No Known Allergies Allergy Verified 09/20/21 19:01 Physical Exam Vitals: Vital Signs Temp Pulse Pulse Resp BP BP BP 09/21/21 12:00 97.5 F L 66 16 105/66 09/21/21 07:44 97.7 F 69 16 116/76 09/21/21 04:56 97.7 F 79 18 109/67 09/21/21 00:40 97.4 F L 70 18 138/74 09/21/21 00:06 98.5 F 77 15 120/74 09/20/21 20:07 76 20 123/69 09/20/21 20:00 70 18 09/20/21 19:05 71 18 107/63 09/20/21 18:32 18 09/20/21 17:22 72 18 129/65 09/20/21 15:46 76 18 Pulse Ox 09/21/21 12:00 94 L 09/21/21 07:44 97 01/26/22 04:56 97 09/21/21 00:40 94 L 09/21/21 00:06 09/20/21 20:07 96 09/20/21 20:00 09/20/21 19:05 96 09/20/21 18:32 09/20/21 17:22 96 09/20/21 15:46 98 Intake and Output 09/21/21 09/21/21 09/21/21 06:59 14:59 22:59 Intake Total 200 Balance 200 Intake: Oral 200 PHYSICAL EXAM: VITAL SIGNS: As above GENERAL: sitting up in bed, no acute distress, smiling, conversing appropriately HEENT: Conjunctivae normal. eyes normal. Oral mucosa moist NECK: Supple, No JVD. No thyroid enlargement. No LNs CARDIOVASCULAR: S1, S2 regular.No murmur RESPIRATION: Breath sounds diminished in the bases. No rhonchi or crackles. No bronchial breathing. ABDOMEN: Soft, nontender . No guarding. no masses palpable. No ascites, No hepatosplenomegaly.Bowel sounds heard. LEGS: No edema. no swelling PSYCHIATRY: Alert and oriented X3, mood and affect normal. NERVOUS SYSTEM: Cranial N 2-12 grossly normal. Left nystagmus correlating with left vestibulopathy.Moves all 4 limbs. No focal deficits. Strength and sensation grossly intact. Skin: Warm and dry, no rash Results CBC & Chem 7: 09/21/21 13:03 09/21/21 13:03 Labs: Abnormal Lab Results - Last 24 Hours (Table) 09/20/21 09/20/21 09/21/21 Range/Units 15:32 15:32 13:03 WBC 12.2 H (3.8-10.6) k/uL RBC 3.64 L (3.80-5.40) m/uL MCV (80.0-100.0) fL Neutrophils # 10.8 H (1.3-7.7) k/uL Lymphocytes # 0.7 L (1.0-4.8) k/uL Sodium 128 L 130 L (137-145) mmol/L Chloride 92 L 90 L (98-107) mmol/L Carbon Dioxide 21 L (22-30) mmol/L BUN 53 H 61 H (7-17) mg/dL Creatinine 4.51 H 4.98 H (0.52-1.04) mg/dL Glucose 132 H (74-99) mg/dL 09/21/21 Range/Units 13:03 WBC 14.3 H (3.8-10.6) k/uL RBC 3.57 L (3.80-5.40) m/uL MCV 100.1 H (80.0-100.0) fL Neutrophils # 13.2 H (1.3-7.7) k/uL Lymphocytes # 0.6 L (1.0-4.8) k/uL Sodium (137-145) mmol/L Chloride (98-107) mmol/L Carbon Dioxide (22-30) mmol/L BUN (7-17) mg/dL Creatinine (0.52-1.04) mg/dL Glucose (74-99) mg/dL Thrombosis Risk Factor Assmnt - Choose All That Apply Each Risk Factor Represents 2 Points: Age 61-74 years Thrombosis Risk Factor Assessment Total Risk Factor Score: 2 Thrombosis Risk Factor Assessment Level: Low Risk Assessment and Plan Assessment: Dizziness turning head from side to side with left nystagmus, suspect left vestibulopathy, vertigo to follow-up outpatient with ENT, Dr. Paco Plaza Hypovolemic hyponatremia, improving with IV fluid hydration Bilateral cataracts Iron deficient anemia Hypertension Gastroesophageal reflux disease History of cervical cancer Anxiety, history of Panic disorder Ongoing nicotine dependence 1 pack per day since age 15 End-stage renal disease on peritoneal dialysis Plan: Continue on current medication regime ,monitoring and symptomatic treatment. Significant clinical improvement with IV fluid hydration, peritoneal dialysis-patient stated she had missed doing them at home the day prior to admission. Smoking cessation reinforced. Patient is scheduled to see ENT, Dr. Rc Plaza OP. Patient will be discharged home today in a stable condition with guarded prognosis pending orthostatic vital signs and patient tolerating ambulating. Patient already has meclizine E scribed. Discharge Medication List Citalopram Hydrobromide [Citalopram HBr] 40 mg PO HS 01/17/17 [History] Metoprolol Succinate [Toprol Xl] 50 mg PO DAILY 03/11/19 [History] Aspirin EC [Ecotrin Low Dose] 81 mg PO DAILY 08/05/19 [History] Rosuvastatin [Crestor] 20 mg PO DAILY 08/05/19 [History] amLODIPine [Norvasc] 10 mg PO DAILY #30 tab 08/08/19 [Rx] Furosemide [Lasix] 40 mg PO DAILY 04/07/20 [History] Spironolactone 25 mg PO DAILY 04/07/20 [History] Losartan Potassium [Cozaar] 25 mg PO HS 09/20/20 [History] Ergocalciferol [Vitamin D2 (1250 Mcg = 20667 Iu)] 1,250 mcg PO Q14D 10/13/20 [History] Esomeprazole Magnesium [NexIUM] 20 mg PO DAILY 10/13/20 [History] Potassium Chloride [Potassium Chloride ER] 10 meq PO Q48H 10/13/20 [History] Calcium Acetate [PhosLo] 667 mg PO TID-W/MEALS 06/01/21 [History] Cyclobenzaprine [Flexeril] 10 mg PO TID PRN #15 tab 09/18/21 [Rx] Meclizine [Antivert] 25 mg PO TID PRN #30 tab 09/18/21 [Rx] Sodium Bicarbonate Tab 650 mg PO DAILY 09/18/21 [History] The impression and plan of care has been dictated as directed. : I performed a history and examination of this patient, discussed the same with the dictator. I agree with the dictator's note ,documented as a scribe. Any additional findings or plans will be noted.
[2021-09-21] MEDS ORDERED: CITALOPRAM HYDROBROMIDE 20 MG TAB PO SCH (21:00)
[2021-09-21] MEDS: LOSARTAN 25 MG TAB PO SCH (21:44)
[2021-09-22] MEDS: DIALYSIS (PERIT 1.5%) 2,500 ML 37.5 G/2,500 ML BAG INTRAPERIT SCH ×2 (00:06→06:17)
[2021-09-22] MEDS: CALCIUM ACETATE 667 MG TAB PO SCH (09:41)
[2021-09-22] MEDS: ATORVASTATIN 20 MG TAB PO SCH (09:41)
[2021-09-22] MEDS: SODIUM BICARBONATE TAB 650 MG TAB PO SCH (09:41)
[2021-09-22] MEDS: SPIRONOLACTONE 25 MG TAB PO SCH (09:41)
[2021-09-22] MEDS: MECLIZINE 25 MG TAB PO SCH (09:41)
[2021-09-22] MEDS: amLODIPine 10 MG TAB PO SCH (09:41)
[2021-09-22] MEDS: METOPROLOL SUCCINATE (ER) 50 MG TAB.ER.24H PO SCH (09:41)
[2021-09-22] MEDS: ASPIRIN 81 MG PO SCH (09:41)
[2021-09-22 11:31] VITALS: BP 100/57; PULSE 70; RESP 18; TEMP 97.6
--- NOTE | 2021-09-22 12:23 | P.PN ---
Subjective Principal diagnosis: Patient is seen for follow-up for end-stage renal disease. She is maintained on PD. Patient was admitted to the hospital with dizziness. This has improved. Patient is maintained on Antivert. No significant hypotension noted. Objective - Vital Signs Vital signs: Vital Signs Temp 97.6 F 09/22/21 11:17 Pulse 70 09/22/21 11:17 Resp 18 09/22/21 11:17 BP 100/57 09/22/21 11:17 Pulse Ox 97 09/22/21 11:17 Intake & Output 09/21/21 09/22/21 09/22/21 18:59 06:59 18:59 Other: Voiding Method CAPD # Voids 5 0 - Exam Patient is awake comfortable not in any acute distress. Alert and oriented 3. She appears euvolemic with no evidence of edema in the lower extremities. [employer] exam is grossly intact - Labs CBC & Chem 7: 09/21/21 13:03 09/21/21 13:03 Labs: Abnormal Lab Results - Last 24 Hours (Table) 09/21/21 09/21/21 Range/Units 13:03 13:03 WBC 14.3 H (3.8-10.6) k/uL RBC 3.57 L (3.80-5.40) m/uL MCV 100.1 H (80.0-100.0) fL Neutrophils # 13.2 H (1.3-7.7) k/uL Lymphocytes # 0.6 L (1.0-4.8) k/uL Sodium 130 L (137-145) mmol/L Chloride 90 L (98-107) mmol/L BUN 61 H (7-17) mg/dL Creatinine 4.98 H (0.52-1.04) mg/dL Glucose 132 H (74-99) mg/dL Assessment and Plan Assessment: 1. End-stage renal disease maintained on peritoneal dialysis. Will continue with current exchanges, patient is tolerating that well 2. Dizziness/vertigo, no hypotension check orthostatics prior to discharge 3. Hyponatremia most likely hypovolemic, repeat labs today continue current PD exchanges and increase oral intake particularly protein 4. Hypokalemia maintained on supplementation Plan: 1. Continue current PD exchanges 2. Encourage increased oral intake. 3. Repeat labs in a.m. 4. Check orthostatics
== END 2021-09-22 13:10 | disposition home or self-care (01) ==
LOC: EC 12:27 → 4SSUR 18:39 → INTOOBSV 18:39 → 5NMEDONC 21:22
PROVIDERS: ADMIT Family Medicine; ATTEND Family Medicine
DX: R42 Dizziness and giddiness (principal); H55.00 Unspecified nystagmus; E86.1 Hypovolemia; E87.1 Hypo-osmolality and hyponatremia; H26.9 Unspecified cataract; D50.9 Iron deficiency anemia, unspecified; I12.0 Hypertensive chronic kidney disease with stage 5 chronic kidney disease or end stage renal disease; N18.6 End stage renal disease; K21.9 Gastro-esophageal reflux disease without esophagitis; Z85.41 Personal history of malignant neoplasm of cervix uteri; F41.9 Anxiety disorder, unspecified; F41.0 Panic disorder [episodic paroxysmal anxiety]; F17.210 Nicotine dependence, cigarettes, uncomplicated; Z99.2 Dependence on renal dialysis; J44.9 Chronic obstructive pulmonary disease, unspecified; E87.6 Hypokalemia; I45.10 Unspecified right bundle-branch block; E78.5 Hyperlipidemia, unspecified; M19.90 Unspecified osteoarthritis, unspecified site; M62.838 Other muscle spasm; R01.1 Cardiac murmur, unspecified; Z20.822 Contact with and (suspected) exposure to COVID-19; Z71.9 Counseling, unspecified; Z71.6 Tobacco abuse counseling; Z71.3 Dietary counseling and surveillance; Z95.5 Presence of coronary angioplasty implant and graft; Z79.899 Other long term (current) drug therapy; Z79.82 Long term (current) use of aspirin; Z91.15 Patient's noncompliance with renal dialysis
CPT/HCPCS: 96376; 96374; 96375; 99285; 36415 ×2; 93005 ×2; 80053 ×3; 84443; 83605; 83735 ×2; 84100; 85025 ×3; 85610; 87635; 72170; 71046 ×2; 70450; 90970 ×3; G0378 ×4; J2270 ×3; J2930; J3360; A4722 ×3

== ENCOUNTER 2021-10-11 09:29 | Observation (INO) | payer MEDICARE, BC ==
[2021-10-11] MEDS ORDERED: HYDROcodone/APAP 7.5-325MG 1 EACH TAB PO ONE (09:49)
--- NOTE | 2021-10-11 10:01 | ED ---
General Adult HPI - General Source: patient, family Mode of arrival: wheelchair Limitations: no limitations - History of Present Illness Onset/Timin -: hour(s) Location: left, upper extremity Radiation: distal Severity scale (1-10): 10 Consistency: constant Improves with: none Worsens with: none Associated Symptoms: denies other symptoms Treatments Prior to Arrival: none <Fior Harris - Last Filed: 10/11/21 18:55> <Aelm Andrews - Last Filed: 10/14/21 23:06> - General Chief complaint: Extremity Injury, Upper Stated complaint: shoulder & arm pain, arm swelling Time Seen by Provider: 10/11/21 09:42 - History of Present Illness Initial comments: This is a 76 year old female with a PMHx of end stage renal failure on peritoneal dialysis, COPD, CHF, HTN, and HLD, who presents to the emergency department for swelling in her left hand. Yesterday she had swelling in the left lower extremity, and the dextrose in her dialysis fluid was increased in an attempt to decrease the swelling, however it only increased it per her daughter. Additionally, she woke up this morning with worsening left shoulder pain. She has had shoulder pain for a while, however she states that this morning it was much worse. Her daughter notes that she often does a lot of house work and chores, and she is unable to do anything with her left arm at this point. She was told to come to the emergency department by the dialysis nurse for concern of a blood clot in the left arm. (Fior Harris) - Related Data Home Medications Medication Instructions Recorded Confirmed Metoprolol Succinate [Toprol Xl] 50 mg PO DAILY 03/11/19 10/11/21 Aspirin EC [Ecotrin Low Dose] 81 mg PO DAILY 08/05/19 10/11/21 Rosuvastatin [Crestor] 20 mg PO DAILY 08/05/19 10/11/21 Furosemide [Lasix] 40 mg PO DAILY 04/07/20 10/11/21 Spironolactone 25 mg PO DAILY 04/07/20 10/11/21 Losartan Potassium [Cozaar] 25 mg PO HS 09/20/20 10/11/21 Ergocalciferol [Vitamin D2 (1250 1,250 mcg PO Q14D 10/13/20 10/11/21 Mcg = 42906 Iu)] Esomeprazole Magnesium [NexIUM] 20 mg PO DAILY 10/13/20 10/11/21 Potassium Chloride [Potassium 10 meq PO Q48H 10/13/20 10/11/21 Chloride ER] Sodium Bicarbonate Tab 650 mg PO DAILY 09/18/21 10/11/21 ALPRAZolam [Xanax] 0.125 - 0.25 mg PO BID PRN 10/11/21 10/11/21 Magnesium Oxide [Mag-Ox] 400 mg PO BID 10/11/21 10/11/21 Mirtazapine [Remeron] 7.5 mg PO BID 10/11/21 10/11/21 Previous Rx's Medication Instructions Recorded Cyclobenzaprine [Flexeril] 10 mg PO TID PRN #15 tab 09/18/21 Meclizine [Antivert] 25 mg PO TID PRN #30 tab 09/18/21 Famotidine [Pepcid] 20 mg PO BID #60 tablet 10/12/21 HYDROcodone/APAP 10-325MG [Hartshorne 1 tab PO Q6HR PRN 3 Days #12 tab 10/12/21 10-325] predniSONE 10 mg PO DIRECTED #30 tab 10/12/21 Allergies Allergy/AdvReac Type Severity Reaction Status Date / Time No Known Allergies Allergy Verified 10/11/21 11:02 Review of Systems ROS Other: All systems not noted in ROS Statement are negative. Constitutional: Denies: fever, chills Respiratory: Denies: cough, dyspnea Cardiovascular: Denies: chest pain, palpitations Gastrointestinal: Denies: abdominal pain, nausea, vomiting Musculoskeletal: Denies: back pain <Fior Harris - Last Filed: 10/11/21 18:55> ROS Other: All systems not noted in ROS Statement are negative. <Alem Andrews - Last Filed: 10/14/21 23:06> ROS Statement: Those systems with pertinent positive or pertinent negative responses have been documented in the HPI. Past Medical History Past Medical History: Blood Disorder, Cancer, COPD, Dialysis, Eye Disorder, GERD/Reflux, Hyperlipidemia, Hypertension, Osteoarthritis (OA), Renal Disease Additional Past Medical History / Comment(s): HX CERVICAL CA. KINZA CATARACTS. murmur. IRON DEFICIENCY ANEMIA. History of Any Multi-Drug Resistant Organisms: None Reported Past Surgical History: Heart Catheterization With Stent Additional Past Surgical History / Comment(s): TOTAL RT KNEE. COLONOSCOPY. may heart cath with stent Past Anesthesia/Blood Transfusion Reactions: No Reported Reaction Date of Last Stent Placement:: 05/2019 Past Psychological History: Anxiety, Panic Disorder Smoking Status: Never smoker Past Alcohol Use History: None Reported Past Drug Use History: None Reported - Past Family History Mother Family Medical History: No Reported History <Fior Harris - Last Filed: 10/11/21 18:55> General Exam Limitations: no limitations General appearance: alert, in distress Head exam: Present: atraumatic, normocephalic, normal inspection Respiratory exam: Present: normal lung sounds bilaterally. Absent: respiratory distress, wheezes, rales, rhonchi, stridor Cardiovascular Exam: Present: regular rate, normal rhythm, normal heart sounds. Absent: systolic murmur, diastolic murmur, rubs, gallop, clicks GI/Abdominal exam: Present: soft, normal bowel sounds. Absent: distended, tenderness, guarding, rebound, rigid Extremities exam: Present: other (significant tenderness to palpation of the left shoulder. Swelling of the dorsal aspect of left hand. 2+ radial pulses bilaterally. 2+ pitting edema of the left lower extremity. 2+ dorsalis pedis and tibialis posterior pulses bilaterally.) Left Shoulder Exam: Present: other (Left shoulder exhibits swelling, erythema, heat, and bogginess. ). Absent: normal inspection, full ROM Hand Wrist exam: Present: other Neurological exam: Present: alert, oriented X3, CN II-XII intact Psychiatric exam: Present: normal affect, normal mood Skin exam: Present: warm, dry, intact, normal color. Absent: rash <Fior Harris - Last Filed: 10/11/21 18:55> Course - Reevaluation(s) Time: 09:40 (Patient in significant pain, requesting medication. Hartshorne provided. ) Time: 10:35 (Hartshorne provided some relief. Discussed that given the negative US and pitting edema, a cardiac workup was ordered. ) Time: 13:05 (Negative cardiac workup. Patient states that she is in excrutiating pain and requests more medication. IVP Fentanyl ordered. Orthopedics paged for concerns of an infectious joint.) Time: 14:33 (Patient states that the Fentanyl is taking effect. Her daughter did have to leave and is no longer in the room. ) Time: 16:30 (Fentanyl no longer working, patient in extreme pain again, very restless in bed. Will try a dose of Dilauded.) <Fior Harris - Last Filed: 10/11/21 18:55> Vital Signs 10/11/21 10/11/21 10/11/21 09:34 15:10 19:39 Temperature 98.9 F 100.0 F H 98.4 F Pulse Rate 101 H 91 85 Respiratory 20 16 20 Rate Blood Pressure 147/83 129/75 139/67 O2 Sat by Pulse 98 95 95 Oximetry EKG Findings - EKG Comments: EKG Findings:: Right bundle branch block, chronic, unchanged from prior EKG. - EKG Results: EKG: interpreted by DANELLE, sinus rhythm, no acute changes <Fior Harris - Last Filed: 10/11/21 18:55> Medical Decision Making - Lab Data Result diagrams: 10/11/21 10:52 10/11/21 10:52 - EKG Data EKG shows normal: sinus rhythm Rate: normal When compared to previous EKG there are: no significant change Interpretation: no acute changes - Radiology Data Radiology results: report reviewed, image reviewed <Fior Harris - Last Filed: 10/11/21 18:55> - Lab Data Result diagrams: 10/12/21 11:54 10/12/21 11:54 <Alem Andrews - Last Filed: 10/14/21 23:06> - Medical Decision Making US of the left upper extremity performed due to pain and swelling to rule out a blood clot. US was suboptimal but unremarkable. XR of the left shoulder revealed no acute changes. There is concern for a septic joint or some sort of infection given the tenderness, warmth, erythema, and extreme pain. Additionally, the swelling in the hand may be a result of a possible infection, causing fluid drainage. Orthopedics consulted. CRP, sed rate, and lactic acid ordered, lab work reveals an elevated WBC, CRP, and sed rate. Case discussed with admitting physician Dr. oRldan Porras, who requested an ultrasound to rule out subclavian steal syndrome. Cardiac workup obtained given progressive left lower extremity pitting edema. EKG stable from prior. BNP and troponin were negative. Given the negative cardiac workup, the pitting edema in the left lower extremity is likely related to the renal failure. Of note, the patient's temperature has elevated from 98.9, to 100.0, and now 101.2, raising further concern for infection. Case discussed with Dr. Vale, orthopedics who requested the patient be admitted for further evaluation by their team. (Fior Harris) I was available for consultation in the emergency department. The history and physical exam were done by the midlevel provider. I was consulted for this patients care. I reviewed the case with the midlevel provider and based on their presentation of the patient, I agree with the assessment, medical decision making and plan of care as documented. I evaluated the patient myself - she has a warm, red, swollen left shoulder with significant pain when she creates the smallest range of motion testing. Concern for septic joint as patient has no recent trauma therefore orthopedics is consulted. Chart was dictated using [employer] dictation software. Attempts were made to correct any dictation errors however some typographical errors may persist. Patient was seen during a national state of emergency due to the Covid-19 pandemic. (Alem Andrews) - Lab Data Lab Results 10/11/21 10/11/21 10/11/21 Range/Units 10:52 10:52 10:52 WBC 11.7 H (3.8-10.6) k/uL RBC 3.05 L (3.80-5.40) m/uL Hgb 10.0 L D (11.4-16.0) gm/dL Hct 30.2 L (34.0-46.0) % MCV 98.9 (80.0-100.0) fL MCH 32.8 (25.0-35.0) pg MCHC 33.1 (31.0-37.0) g/dL RDW 14.4 (11.5-15.5) % Plt Count 274 (150-450) k/uL MPV 7.7 ESR (0-20) mm/hr Sodium 132 L (137-145) mmol/L Potassium 3.0 L (3.5-5.1) mmol/L Chloride 98 (98-107) mmol/L Carbon Dioxide 27 (22-30) mmol/L Anion Gap 7 mmol/L BUN 18 H (7-17) mg/dL Creatinine 2.78 H (0.52-1.04) mg/dL Est GFR (CKD-EPI)AfAm 19 (>60 ml/min/1.73 sqM) Est GFR (CKD-EPI)NonAf 16 (>60 ml/min/1.73 sqM) Glucose 96 (74-99) mg/dL Plasma Lactic Acid Dawit (0.7-2.0) mmol/L Uric Acid (3.7-7.4) mg/dL Calcium 7.5 L (8.4-10.2) mg/dL Total Bilirubin 0.5 (0.2-1.3) mg/dL AST 21 (14-36) U/L ALT 10 (4-34) U/L Alkaline Phosphatase 58 (38-126) U/L Troponin I (0.000-0.034) ng/mL C-Reactive Protein (<1.0) mg/dL NT-Pro-B Natriuret Pep 4520 pg/mL Total Protein 5.7 L (6.3-8.2) g/dL Albumin 2.8 L (3.5-5.0) g/dL Coronavirus (PCR) (Not Detectd) 10/11/21 10/11/21 10/11/21 Range/Units 10:52 13:56 13:56 WBC (3.8-10.6) k/uL RBC (3.80-5.40) m/uL Hgb (11.4-16.0) gm/dL Hct (34.0-46.0) % MCV (80.0-100.0) fL MCH (25.0-35.0) pg MCHC (31.0-37.0) g/dL RDW (11.5-15.5) % Plt Count (150-450) k/uL MPV ESR (0-20) mm/hr Sodium (137-145) mmol/L Potassium (3.5-5.1) mmol/L Chloride (98-107) mmol/L Carbon Dioxide (22-30) mmol/L Anion Gap mmol/L BUN (7-17) mg/dL Creatinine (0.52-1.04) mg/dL Est GFR (CKD-EPI)AfAm (>60 ml/min/1.73 sqM) Est GFR (CKD-EPI)NonAf (>60 ml/min/1.73 sqM) Glucose (74-99) mg/dL Plasma Lactic Acid Dawit 1.4 (0.7-2.0) mmol/L Uric Acid (3.7-7.4) mg/dL Calcium (8.4-10.2) mg/dL Total Bilirubin (0.2-1.3) mg/dL AST (14-36) U/L ALT (4-34) U/L Alkaline Phosphatase (38-126) U/L Troponin I 0.020 (0.000-0.034) ng/mL C-Reactive Protein 4.6 H (<1.0) mg/dL NT-Pro-B Natriuret Pep pg/mL Total Protein (6.3-8.2) g/dL Albumin (3.5-5.0) g/dL Coronavirus (PCR) (Not Detectd) 10/11/21 10/11/21 10/11/21 Range/Units 13:56 14:05 16:51 WBC (3.8-10.6) k/uL RBC (3.80-5.40) m/uL Hgb (11.4-16.0) gm/dL Hct (34.0-46.0) % MCV (80.0-100.0) fL MCH (25.0-35.0) pg MCHC (31.0-37.0) g/dL RDW (11.5-15.5) % Plt Count (150-450) k/uL MPV ESR 91 H (0-20) mm/hr Sodium (137-145) mmol/L Potassium (3.5-5.1) mmol/L Chloride (98-107) mmol/L Carbon Dioxide (22-30) mmol/L Anion Gap mmol/L BUN (7-17) mg/dL Creatinine (0.52-1.04) mg/dL Est GFR (CKD-EPI)AfAm (>60 ml/min/1.73 sqM) Est GFR (CKD-EPI)NonAf (>60 ml/min/1.73 sqM) Glucose (74-99) mg/dL Plasma Lactic Acid Dawit (0.7-2.0) mmol/L Uric Acid 4.1 (3.7-7.4) mg/dL Calcium (8.4-10.2) mg/dL Total Bilirubin (0.2-1.3) mg/dL AST (14-36) U/L ALT (4-34) U/L Alkaline Phosphatase (38-126) U/L Troponin I (0.000-0.034) ng/mL C-Reactive Protein (<1.0) mg/dL NT-Pro-B Natriuret Pep pg/mL Total Protein (6.3-8.2) g/dL Albumin (3.5-5.0) g/dL Coronavirus (PCR) Not Detected (Not Detectd) Disposition Is patient prescribed a controlled substance at d/c from ED?: No <Fior Harris - Last Filed: 10/11/21 18:55> <Alem Andrews - Last Filed: 10/14/21 23:06> Clinical Impression: Inflammation of joint of left shoulder region Disposition: ADMITTED IP TO THIS HOSP
--- NOTE | 2021-10-11 10:28 | US ---
EXAMINATION TYPE: US venous doppler duplex UE LT DATE OF EXAM: 10/11/2021 COMPARISON: NONE CLINICAL HISTORY: Pain and swelling. Pt states pain, especially left shoulder, left hand swelling SIDE PERFORMED: Left Difficult scan due to pt unable to move left arm, and in immense pain Left Arm: Visualized portions appeared negative for DVT, unable to visualize left ulnar veins due to pt unable to move arm Grayscale, color doppler, spectral doppler imaging performed of the deep veins of the left upper extr emity. There is normal flow, compressibility and vascular waveforms. IMPRESSION: Suboptimal study, no convincing evidence for acute deep or superficial venous thrombosis on images saved.
--- NOTE | 2021-10-11 11:19 | XR ---
EXAMINATION TYPE: XR shoulder complete LT DATE OF EXAM: 10/11/2021 CLINICAL HISTORY: Pain and limited range of motion TECHNIQUE: Three views of the left shoulder are obtained. COMPARISON: None. FINDINGS: Osseous structures are demineralized. There is no acute fracture/dislocation evident in the left shoulder. [id number] narrowing glenohumeral joint with subchondral cystic change. Mild spurring acromioclavicular joint. Some peripheral calcifications. No narrowing. The visualized ribs a re intact and unremarkable. IMPRESSION: As above.
[2021-10-11 11:29] LABS: Albumin 2.8 g/dL (3.5-5.0); Calcium 7.5 mg/dL (8.4-10.2); Total Bilirubin 0.5 mg/dL (0.2-1.3); Total Protein 5.7 g/dL (6.3-8.2)
[2021-10-11 11:36] LABS: HCT 30.2 % (34.0-46.0); MCH 32.8 pg (25.0-35.0); MCHC 33.1 g/dL (31.0-37.0); MCV 98.9 fL (80.0-100.0); Mean Platelet Volume 7.7; Platelet Count 274 k/uL (150-450); RBC 3.05 m/uL (3.80-5.40); RDW 14.4 % (11.5-15.5); WBC 11.7 k/uL (3.8-10.6)
[2021-10-11] MEDS ORDERED: fentaNYL (PF) 50 MCG/ML 2 ML AMP IVP PRN (13:09)
[2021-10-11] MEDS ORDERED: fentaNYL (PF) 50 MCG/ML 2 ML AMP IVP STA (13:47)
[2021-10-11] MEDS ORDERED: HYDROmorphone 0.5 MG/0.5 ML SYRINGE IVP STA (16:15)
[2021-10-11] MEDS ORDERED: POTASSIUM CHLORIDE ER 20 MEQ TAB.ER PO STA (16:33)
[2021-10-11] MEDS ORDERED: NALOXONE 0.4 MG/ML 1 ML VIAL IV PRN ×2 (18:56→20:19)
[2021-10-11] MEDS ORDERED: ACETAMINOPHEN TAB 325 MG TAB PO PRN (19:08)
[2021-10-11] MEDS ORDERED: ONDANSETRON 4 MG/2 ML VIAL IVP PRN (19:08)
--- NOTE | 2021-10-11 19:09 | US ---
EXAMINATION TYPE: US carotid duplex BILAT DATE OF EXAM: 10/11/2021 COMPARISON: NONE CLINICAL HISTORY: Rule out subclavian steel syndrome. Confirmed we do not image subclavian artery pe r department protocol, DEREK Harris is aware that normal carotid protocol was performed. R/O subclavian steel syndrome per order. Pt has HTN, hyperlipidemia, intermittent dizziness, hx previous smoker. EXAM MEASUREMENTS: RIGHT: Peak Systolic Velocity (PSV) cm/sec ----- Right CCA: 82.5 ----- Right ICA: 157.2 ----- Right ECA: 196.6 ICA/CCA ratio: 1.9 RIGHT: End Diastole cm/sec ----- Right CCA: 23.2 ----- Right ICA: 45.7 ----- Right ECA: 29.3 LEFT: Peak Systolic Velocity (PSV) cm/sec ----- Left CCA: 115.6 ----- Left ICA: 255.3 ----- Left ECA: 219.1 ICA/CCA ratio: 2.2 LEFT: End Diastole cm/sec ----- Left CCA: 31.4 ----- Left ICA: 51.8 ----- Left ECA: 26.8 VERTEBRALS (direction of flow): Right Vertebral: Antegrade Left Vertebral: Antegrade Rhythm: Normal Plaque seen within bilateral carotid bulbs, right ICA, left CCA and left ICA. Elevated velocities wit hin right ICA, right ECA, left ICA, left bulb, and left ECA. Exam limited due to constant patient mov ement. IMPRESSION: There is antegrade flow in the vertebral arteries. The images and measurements suggest more than 70% stenosis in the left internal carotid artery and 70 % stenosis in the right internal carotid artery. Criteria for Assigning % of Stenosis / Diameter reduction (Estimation based on the indirect measurements of the internal carotid artery velocities (ICA PSV). 1. Normal (no stenosis)=ICA PSV < 125 cm/s: ratio < 2.0: ICA EDV<40 cm/s. 2. Less than 50% stenosis=ICA PSV < 125 cm/s: ratio < 2.0: ICA EDV<40 cm/s. 3. 50 to 69% stenosis=ICA PSV of 125 to 230 cm/s: ration 2.0 ? 4.0: ICA EDV 40-100 cm/s. 4. Greater than 70% stenosis to near occlusion= ICA PSV > 230 cm/s: ratio > 4.0: ICA EDV > 100 cm/s. 5. Near occlusion= ICA PSV velocities may be low or undetectable: variable ratio and ICA EDV. 6. Total occlusion=unable to detect flow.
[2021-10-11] MEDS ORDERED: HYDROmorphone 1 MG/ML 1 ML SYRINGE IVP PRN ×2 (19:23)
[2021-10-11] MEDS ORDERED: GABAPENTIN 300 MG CAP PO STA (19:23)
[2021-10-11] MEDS ORDERED: HYDROmorphone 1 MG/ML 1 ML SYRINGE IVP STA (19:25)
[2021-10-12 06:47] VITALS: BP 107/63; PULSE 104; RESP 22; TEMP 99.3
[2021-10-12] MEDS ORDERED: HYDROcodone/APAP 7.5-325MG 1 EACH TAB PO PRN ×2 (09:41)
[2021-10-12] MEDS ORDERED: diazePAM 2 MG TAB PO PRN (09:42)
[2021-10-12] MEDS ORDERED: methylPREDNISolone 4 MG TAB TAPER PO SCH (09:45)
[2021-10-12] MEDS ORDERED: ALPRAZolam 0.25 MG TAB PO PRN (10:52)
[2021-10-12] MEDS ORDERED: SODIUM BICARBONATE TAB 650 MG TAB PO SCH (11:00)
[2021-10-12] MEDS ORDERED: METOPROLOL SUCCINATE (ER) 50 MG TAB.ER.24H PO SCH (11:00)
[2021-10-12] MEDS ORDERED: ATORVASTATIN 40 MG TAB PO SCH (11:00)
[2021-10-12] MEDS ORDERED: MIRTAZAPINE 15 MG TAB PO SCH (11:00)
[2021-10-12] MEDS ORDERED: ERGOCALCIFEROL 1,250 MCG (50,000 IU) CAPSULE PO SCH (11:00)
[2021-10-12] MEDS ORDERED: MAGNESIUM OXIDE 400 MG TAB PO SCH (11:00)
[2021-10-12] MEDS ORDERED: ASPIRIN 81 MG PO SCH (11:00)
[2021-10-12] MEDS ORDERED: PANTOPRAZOLE 40 MG TABLET PO SCH (11:00)
[2021-10-12] MEDS ORDERED: SPIRONOLACTONE 25 MG TAB PO SCH (11:00)
[2021-10-12] MEDS ORDERED: POTASSIUM CHLORIDE ER 10 MEQ TAB.ER.PRT PO SCH (11:00)
[2021-10-12] MEDS ORDERED: FUROSEMIDE 40 MG TAB PO SCH (11:00)
[2021-10-12] MEDS ORDERED: DIALYSIS (PERIT 1.5%) 2,000 ML 30 G/2,000 ML BAG INTRAPERIT SCH (12:00)
[2021-10-12 12:17] LABS: HCT 32.3 % (34.0-46.0); HGB 10.4 gm/dL (11.4-16.0); MCH 32.7 pg (25.0-35.0); MCHC 32.1 g/dL (31.0-37.0); MCV 101.7 fL (80.0-100.0); Macrocytosis Slight; Mean Platelet Volume 7.3; Platelet Count 314 k/uL (150-450); RBC 3.18 m/uL (3.80-5.40); RDW 14.6 % (11.5-15.5); WBC 12.1 k/uL (3.8-10.6)
[2021-10-12 12:43] LABS: African American GFR (CKD) 14 (>60 ml/min/1.73 sqM); Anion Gap 11 mmol/L; Blood Urea Nitrogen 31 mg/dL (7-17); Calcium 7.4 mg/dL (8.4-10.2); Carbon Dioxide 28 mmol/L (22-30); Chloride 93 mmol/L (98-107); Glucose 89 mg/dL (74-99); Magnesium 1.3 mg/dL (1.6-2.3); Non-African American GFR(CKD) 12 (>60 ml/min/1.73 sqM); Potassium 3.3 mmol/L (3.5-5.1); Sodium 132 mmol/L (137-145)
--- NOTE | 2021-10-12 13:41 | P.HPIM ---
History of Present Illness H&P Date: 10/12/21 Chief Complaint: Increased left shoulder and left knee pain History and Physical and Discharge Summary This is a 76-year-old female with past medical history of COPD, gastroesophageal reflux disease, hypertension, cervical cancer, iron deficient anemia, anxiety, panic disorder, end-stage renal disease maintained on peritoneal dialysis and multiple other medical issues presented to the ER with progressive chronic left shoulder pain as well as chronic left knee pain .denies trauma. Patient reports hemodialysis recently adjusted. Instructed by dialysis nurse to present to the ER to rule out left arm blood clot. T-max 100, WBC 11.7, sed rate and CRP elevated, hemoglobin 10, platelets. Sodium 132, potassium 3, BUN 18, creatinine 2.78, BNP 4520, Lactic acid 1.4. Repeat labs. ordered. Ultrasound of left upper extremity, suboptimal study, no convincing evidence for acute deep or superficial venous thrombosis, unable to visualize left ulnar veins as patient unable to move arm. Shoulder x-ray reported no acute fracture/dislocation evident in the left shoulder, moderate to severe narrowing of the glenohumeral joint with subchondral cystic change, mild spurring of acromioclavicular joint. Carotid Doppler ordered in regards to ruling out subclavian still syndrome, subclavian artery not imaged, reporting 70% bilateral internal carotid stenosis. EKG sinus rhythm, right bundle branch block Evaluated by orthopedic surgery, placed on IV steroids, Valium and Norcos. Pain better controlled. Denies chest pain, palpitations or shortness of breath. Review of Systems ROS Statement: Those systems with pertinent positive or pertinent negative responses have been documented in the HPI. ROS Other: All systems not noted in ROS Statement are negative. Past Medical History Past Medical History: Blood Disorder, Cancer, COPD, Dialysis, Eye Disorder, GERD/Reflux, Hyperlipidemia, Hypertension, Osteoarthritis (OA), Renal Disease Additional Past Medical History / Comment(s): HX CERVICAL CA. KINZA CATARACTS. murmur. IRON DEFICIENCY ANEMIA. History of Any Multi-Drug Resistant Organisms: None Reported Past Surgical History: Heart Catheterization With Stent Additional Past Surgical History / Comment(s): TOTAL RT KNEE. COLONOSCOPY. may heart cath with stent Past Anesthesia/Blood Transfusion Reactions: No Reported Reaction Date of Last Stent Placement:: 05/2019 Past Psychological History: Anxiety, Panic Disorder Smoking Status: Never smoker Past Alcohol Use History: None Reported Additional Past Alcohol Use History / Comment(s): SMOKED SINCE AGE 15, 1 PPD. Past Drug Use History: None Reported - Past Family History Mother Family Medical History: No Reported History Medications and Allergies Home Medications Medication Instructions Recorded Confirmed Type Metoprolol Succinate [Toprol Xl] 50 mg PO DAILY 03/11/19 10/11/21 History Aspirin EC [Ecotrin Low Dose] 81 mg PO DAILY 08/05/19 10/11/21 History Rosuvastatin [Crestor] 20 mg PO DAILY 08/05/19 10/11/21 History Furosemide [Lasix] 40 mg PO DAILY 04/07/20 10/11/21 History Spironolactone 25 mg PO DAILY 04/07/20 10/11/21 History Losartan Potassium [Cozaar] 25 mg PO HS 09/20/20 10/11/21 History Ergocalciferol [Vitamin D2 (1250 1,250 mcg PO Q14D 10/13/20 10/11/21 History Mcg = 64350 Iu)] Esomeprazole Magnesium [NexIUM] 20 mg PO DAILY 10/13/20 10/11/21 History Potassium Chloride [Potassium 10 meq PO Q48H 10/13/20 10/11/21 History Chloride ER] Cyclobenzaprine [Flexeril] 10 mg PO TID PRN #15 tab 09/18/21 10/11/21 Rx Meclizine [Antivert] 25 mg PO TID PRN #30 tab 09/18/21 10/11/21 Rx Sodium Bicarbonate Tab 650 mg PO DAILY 09/18/21 10/11/21 History ALPRAZolam [Xanax] 0.125 - 0.25 mg PO BID PRN 10/11/21 10/11/21 History Magnesium Oxide [Mag-Ox] 400 mg PO BID 10/11/21 10/11/21 History Mirtazapine [Remeron] 7.5 mg PO BID 10/11/21 10/11/21 History Famotidine [Pepcid] 20 mg PO BID #60 tablet 10/12/21 Rx HYDROcodone/APAP 10-325MG [Clint 1 tab PO Q6HR PRN 3 Days #12 tab 10/12/21 Rx 10-325] predniSONE 10 mg PO DIRECTED #30 tab 10/12/21 Rx Allergies Allergy/AdvReac Type Severity Reaction Status Date / Time No Known Allergies Allergy Verified 10/11/21 11:02 Physical Exam Vitals: Vital Signs Temp Pulse Pulse Resp BP BP Pulse Ox 10/12/21 08:11 104 H 22 10/12/21 06:45 99.3 F 104 H 22 107/63 94 L 10/12/21 01:47 99.0 F 82 16 132/71 91 L 10/11/21 19:39 98.4 F 85 20 139/67 95 10/11/21 15:10 100.0 F H 91 16 129/75 95 Intake and Output 10/11/21 10/12/21 10/12/21 22:59 06:59 14:59 Other: Voiding Method Toilet Weight 58.513 kg PHYSICAL EXAM: VITAL SIGNS: As above GENERAL: sitting up in bed, no acute distress HEENT: Conjunctivae normal. eyes normal. Oral mucosa moist NECK: Supple, No JVD. No thyroid enlargement. No LNs CARDIOVASCULAR: S1, S2 regular.No murmur RESPIRATION: Breath sounds diminished in the bases. No rhonchi or crackles. No bronchial breathing. ABDOMEN: Soft, nontender . No guarding. no masses palpable. No ascites, No hepatosplenomegaly.Bowel sounds heard. PD catheter. EXTREMITIES: Left upper extremity without redness or significant edema .chronic left knee edema. Positive radial and DP pulses. Extremities warm and pink. PSYCHIATRY: Alert and oriented to person and place, mood and affect normal. NERVOUS SYSTEM: Cranial N 2-12 grossly normal.No focal deficits. Strength and sensation grossly intact. Skin: Warm and dry, no rash Results CBC & Chem 7: 10/12/21 11:54 10/12/21 11:54 Labs: Abnormal Lab Results - Last 24 Hours (Table) 10/11/21 10/11/21 10/11/21 Range/Units 10:52 10:52 13:56 WBC 11.7 H (3.8-10.6) k/uL RBC 3.05 L (3.80-5.40) m/uL Hgb 10.0 L D (11.4-16.0) gm/dL Hct 30.2 L (34.0-46.0) % ESR (0-20) mm/hr Sodium 132 L (137-145) mmol/L Potassium 3.0 L (3.5-5.1) mmol/L BUN 18 H (7-17) mg/dL Creatinine 2.78 H (0.52-1.04) mg/dL Calcium 7.5 L (8.4-10.2) mg/dL C-Reactive Protein 4.6 H (<1.0) mg/dL Total Protein 5.7 L (6.3-8.2) g/dL Albumin 2.8 L (3.5-5.0) g/dL 10/11/21 Range/Units 14:05 WBC (3.8-10.6) k/uL RBC (3.80-5.40) m/uL Hgb (11.4-16.0) gm/dL Hct (34.0-46.0) % ESR 91 H (0-20) mm/hr Sodium (137-145) mmol/L Potassium (3.5-5.1) mmol/L BUN (7-17) mg/dL Creatinine (0.52-1.04) mg/dL Calcium (8.4-10.2) mg/dL C-Reactive Protein (<1.0) mg/dL Total Protein (6.3-8.2) g/dL Albumin (3.5-5.0) g/dL Thrombosis Risk Factor Assmnt - Choose All That Apply Each Risk Factor Represents 3 Points: Age 75 years or older Thrombosis Risk Factor Assessment Total Risk Factor Score: 3 Thrombosis Risk Factor Assessment Level: Moderate Risk Assessment and Plan Assessment: Acute left shoulder inflammation, x-ray reporting moderate to severe narrowing of the glenohumeral joint with subchondral cystic change, mild spurring of acromioclavicular joint.Suspect worsening arthritis Bilateral internal carotid artery stenosis 70% reported per Doppler, further follow-up outpatient with vascular surgery. Bilateral cataracts Iron deficient anemia, history of CAD, history of stent placement Chronic systolic heart failure, EF 45-50% Hypertension Hyperlipidemia COPD Gastroesophageal reflux disease History of cervical cancer Degenerative joint disease Anxiety, history of Panic disorder, history of Ongoing nicotine dependence 1 pack per day since age 15 End-stage renal disease on peritoneal dialysis Hypokalemia Plan: Continue on current medication regime ,monitoring and symptomatic treatment. Evaluated by orthopedic surgery. Patient will be discharged home today in a stable condition with guarded prognosis , on tapering steroids, Norcos. Patient to follow-up at PCPs office on Sunday. The impression and plan of care has been dictated as directed. : I performed a history and examination of this patient, discussed the same with the dictator. I agree with the dictator's note ,documented as a scribe. Any additional findings or plans will be noted.
--- NOTE | 2021-10-12 14:28 | XR ---
EXAMINATION TYPE: XR knee 4V LT DATE OF EXAM: 10/12/2021 CLINICAL HISTORY: Pain and swelling for 4 days TECHNIQUE: Three views of the left knee are obtained. COMPARISON: None. FINDINGS: Osseous structures are demineralized. There is suspected old malunion fracture of the proxi mal tibial metaphysis making evaluation suboptimal due to distorted anatomy. Severe narrowing medial tibiofemoral compartment with sclerosis of the distal medial femoral condyle. Moderate narrowing and spurring lateral tibiofemoral compartment. Patellar articulation satisfactory on the sunrise view. Mo derate to severe narrowing patellofemoral compartment on lateral view. Some faint calcifications in t he suprapatellar region are present. Mild posterior vascular calcification is seen. IMPRESSION: As above.
[2021-10-12] MEDS ORDERED: LOSARTAN 25 MG TAB PO SCH (21:00)
== END 2021-10-12 14:48 | disposition home or self-care (01) ==
LOC: EC 09:29 → 6NMEDSUR 20:19
PROVIDERS: ADMIT Family Medicine; ATTEND Family Medicine
DX: M19.012 Primary osteoarthritis, left shoulder (principal); I65.23 Occlusion and stenosis of bilateral carotid arteries; H26.9 Unspecified cataract; D50.9 Iron deficiency anemia, unspecified; I25.10 Atherosclerotic heart disease of native coronary artery without angina pectoris; Z95.5 Presence of coronary angioplasty implant and graft; I13.2 Hypertensive heart and chronic kidney disease with heart failure and with stage 5 chronic kidney disease, or end stage renal disease; I50.22 Chronic systolic (congestive) heart failure; N18.6 End stage renal disease; E78.5 Hyperlipidemia, unspecified; J44.9 Chronic obstructive pulmonary disease, unspecified; Z99.2 Dependence on renal dialysis; K21.9 Gastro-esophageal reflux disease without esophagitis; Z85.41 Personal history of malignant neoplasm of cervix uteri; M19.90 Unspecified osteoarthritis, unspecified site; F41.9 Anxiety disorder, unspecified; F41.0 Panic disorder [episodic paroxysmal anxiety]; F17.210 Nicotine dependence, cigarettes, uncomplicated; E87.6 Hypokalemia; G89.29 Other chronic pain; M25.562 Pain in left knee; R79.82 Elevated C-reactive protein (CRP); R01.1 Cardiac murmur, unspecified; I45.10 Unspecified right bundle-branch block; Z20.822 Contact with and (suspected) exposure to COVID-19; Z79.899 Other long term (current) drug therapy; Z79.82 Long term (current) use of aspirin; Z79.52 Long term (current) use of systemic steroids
CPT/HCPCS: 96376; 96374; 96375; 99285; 36415; 93005; 83880; 80053; 80048; 85652; 83605; 83735; 84550; 84484; 85027 ×2; 86140; 87635; 73030; 73564; 93880; 93971; G0378 ×2; A4722; J3010; J1170 ×3; J7509

== ENCOUNTER 2021-11-10 16:32 | Emergency (ER) | payer MEDICARE, BC ==
[2021-11-10 16:50] VITALS: BP 133/65; PULSE 78; RESP 16; TEMP 98
--- NOTE | 2021-11-10 19:35 | ED ---
General Adult HPI - General Chief complaint: Skin/Abscess/Foreign Body Stated complaint: R side pain Time Seen by Provider: 11/10/21 18:50 Source: patient, RN notes reviewed, old records reviewed Mode of arrival: ambulatory Limitations: no limitations - History of Present Illness Initial comments: 76-year-old female history of end-stage renal disease on peritoneal dialysis presenting with pain at her peritoneal dialysis catheter site. This has been p resent for the past several days. She has not completed a complete session in the past 48 hours. She's had no fever. No generalized abdominal pains predominately on the right side at the site of the catheter. She's had no fever. No vomiting. She does make urine and has not had dysuria. - Related Data Home Medications Medication Instructions Recorded Confirmed Metoprolol Succinate [Toprol Xl] 50 mg PO DAILY 03/11/19 10/11/21 Aspirin EC [Ecotrin Low Dose] 81 mg PO DAILY 08/05/19 10/11/21 Rosuvastatin [Crestor] 20 mg PO DAILY 08/05/19 10/11/21 Furosemide [Lasix] 40 mg PO DAILY 04/07/20 10/11/21 Spironolactone 25 mg PO DAILY 04/07/20 10/11/21 Losartan Potassium [Cozaar] 25 mg PO HS 09/20/20 10/11/21 Ergocalciferol [Vitamin D2 (1250 1,250 mcg PO Q14D 10/13/20 10/11/21 Mcg = 65698 Iu)] Esomeprazole Magnesium [NexIUM] 20 mg PO DAILY 10/13/20 10/11/21 Potassium Chloride [Potassium 10 meq PO Q48H 10/13/20 10/11/21 Chloride ER] Sodium Bicarbonate Tab 650 mg PO DAILY 09/18/21 10/11/21 ALPRAZolam [Xanax] 0.125 - 0.25 mg PO BID PRN 10/11/21 10/11/21 Magnesium Oxide [Mag-Ox] 400 mg PO BID 10/11/21 10/11/21 Mirtazapine [Remeron] 7.5 mg PO BID 10/11/21 10/11/21 Previous Rx's Medication Instructions Recorded Cyclobenzaprine [Flexeril] 10 mg PO TID PRN #15 tab 09/18/21 Meclizine [Antivert] 25 mg PO TID PRN #30 tab 09/18/21 Famotidine [Pepcid] 20 mg PO BID #60 tablet 10/12/21 HYDROcodone/APAP 10-325MG [[place] 1 tab PO Q6HR PRN 3 Days #12 tab 10/12/21 10-325] predniSONE 10 mg PO DIRECTED #30 tab 10/12/21 HYDROcodone/APAP 5-325MG [[place] 1 tab PO Q6HR PRN #12 tab 11/10/21 5-325] Allergies Allergy/AdvReac Type Severity Reaction Status Date / Time No Known Allergies Allergy Verified 11/10/21 16:50 Review of Systems ROS Statement: Those systems with pertinent positive or pertinent negative responses have been documented in the HPI. ROS Other: All systems not noted in ROS Statement are negative. Past Medical History Past Medical History: Blood Disorder, Cancer, COPD, Dialysis, Eye Disorder, GERD/Reflux, Hyperlipidemia, Hypertension, Osteoarthritis (OA), Renal Disease Additional Past Medical History / Comment(s): HX CERVICAL CA. KINZA CATARACTS. murmur. IRON DEFICIENCY ANEMIA. peritoneal dialysis History of Any Multi-Drug Resistant Organisms: None Reported Past Surgical History: Heart Catheterization With Stent Additional Past Surgical History / Comment(s): TOTAL RT KNEE. COLONOSCOPY. may heart cath with stent Past Anesthesia/Blood Transfusion Reactions: No Reported Reaction Date of Last Stent Placement:: 05/2019 Past Psychological History: Anxiety, Panic Disorder Smoking Status: Never smoker Past Alcohol Use History: None Reported Past Drug Use History: None Reported - Past Family History Mother Family Medical History: No Reported History General Exam Limitations: no limitations General appearance: alert, in no apparent distress Head exam: Present: atraumatic, normocephalic Eye exam: Present: normal appearance, PERRL ENT exam: Present: normal exam Neck exam: Present: normal inspection. Absent: tenderness, meningismus Respiratory exam: Present: normal lung sounds bilaterally. Absent: respiratory distress, wheezes Cardiovascular Exam: Present: regular rate. Absent: normal rhythm, bradycardia GI/Abdominal exam: Present: soft, tenderness (Tenderness right lower abdomen at the site of peritoneal bath dialysis catheter. No erythema, no fluctuance.). Absent: distended Extremities exam: Present: normal inspection, normal capillary refill Neurological exam: Present: alert, oriented X3, CN II-XII intact. Absent: motor sensory deficit Psychiatric exam: Present: normal affect, normal mood Skin exam: Present: warm, dry, intact. Absent: cyanosis, diaphoretic Course Vital Signs 11/10/21 16:45 Temperature 98 F Pulse Rate 78 Respiratory 16 Rate Blood Pressure 133/65 O2 Sat by Pulse 100 Oximetry Medical Decision Making - Medical Decision Making 76-year-old female with end-stage renal disease on peritoneal dialysis with pain at the catheter site. There is no signs of infection externally. No erythema, no induration, no fluctuance. The catheter has been working fine for dialysis. She is afebrile and otherwise well-appearing. She has no peritoneal signs. CT is performed which shows that the catheter is in good position without abnormal fluid collection no acute findings. She has normal white blood cell count. She is anemic which is stable. Other laboratory testing is stable without significant abnormality. I did discuss case with Dr. Porras, at this point we agree that the patient will be monitored and have close outpatient follow-up. She'll be prescribed pain medication. Strict return parameters are discussed. - Lab Data Result diagrams: 11/10/21 19:21 11/10/21 19:21 Lab Results 11/10/21 11/10/21 11/10/21 Range/Units 19:21 19:21 19:21 WBC 6.8 (3.8-10.6) k/uL RBC 2.87 L (3.80-5.40) m/uL Hgb 9.4 L (11.4-16.0) gm/dL Hct 28.3 L (34.0-46.0) % MCV 98.6 (80.0-100.0) fL MCH 32.5 (25.0-35.0) pg MCHC 33.0 (31.0-37.0) g/dL RDW 15.4 (11.5-15.5) % Plt Count 461 H (150-450) k/uL MPV 7.2 Neutrophils % 76 % Lymphocytes % 13 % Monocytes % 4 % Eosinophils % 3 % Basophils % 1 % Neutrophils # 5.2 (1.3-7.7) k/uL Lymphocytes # 0.9 L (1.0-4.8) k/uL Monocytes # 0.3 (0-1.0) k/uL Eosinophils # 0.2 (0-0.7) k/uL Basophils # 0.0 (0-0.2) k/uL Macrocytosis Slight Sodium 131 L (137-145) mmol/L Potassium 4.3 (3.5-5.1) mmol/L Chloride 97 L (98-107) mmol/L Carbon Dioxide 26 (22-30) mmol/L Anion Gap 8 mmol/L BUN 29 H (7-17) mg/dL Creatinine 3.45 H (0.52-1.04) mg/dL Est GFR (CKD-EPI)AfAm 14 (>60 ml/min/1.73 sqM) Est GFR (CKD-EPI)NonAf 12 (>60 ml/min/1.73 sqM) Glucose 83 (74-99) mg/dL Plasma Lactic Acid [place] 0.6 L (0.7-2.0) mmol/L Calcium 8.2 L (8.4-10.2) mg/dL Total Bilirubin 0.5 (0.2-1.3) mg/dL AST 20 (14-36) U/L ALT 11 (4-34) U/L Alkaline Phosphatase 76 (38-126) U/L Total Protein 6.0 L (6.3-8.2) g/dL Albumin 2.9 L (3.5-5.0) g/dL Amylase 56 (30-110) U/L Lipase 62 (23-300) U/L Disposition Clinical Impression: Abdominal pain Disposition: HOME SELF-CARE Condition: Fair Instructions (If sedation given, give patient instructions): Abdominal Pain (ED) Prescriptions: HYDROcodone/APAP 5-325MG [[place] 5-325] 1 tab PO Q6HR PRN #12 tab PRN Reason: Pain Is patient prescribed a controlled substance at d/c from ED?: No Referrals: Daniel Saul MD [Primary Care Provider] - 1-2 days Time of Disposition: 21:28
[2021-11-10 19:44] LABS: Basophils % (A) 1 %; Eosinophils # (A) 0.2 k/uL (0-0.7); Eosinophils % (A) 3 %; HCT 28.3 % (34.0-46.0); HGB 9.4 gm/dL (11.4-16.0); Lymphocytes # (A) 0.9 k/uL (1.0-4.8); Lymphocytes % (A) 13 %; MCH 32.5 pg (25.0-35.0); MCV 98.6 fL (80.0-100.0); Macrocytosis Slight; Mean Platelet Volume 7.2; Monocytes # (A) 0.3 k/uL (0-1.0); Monocytes % (A) 4 %; Neutrophils # (A) 5.2 k/uL (1.3-7.7); Neutrophils % (A) 76 %; Platelet Count 461 k/uL (150-450); RBC 2.87 m/uL (3.80-5.40); RDW 15.4 % (11.5-15.5); WBC 6.8 k/uL (3.8-10.6)
[2021-11-10 19:52] LABS: Albumin 2.9 g/dL (3.5-5.0); Calcium 8.2 mg/dL (8.4-10.2); Potassium 4.3 mmol/L (3.5-5.1); Total Bilirubin 0.5 mg/dL (0.2-1.3)
--- NOTE | 2021-11-10 21:01 | CT ---
EXAMINATION TYPE: CT abdomen pelvis wo con DATE OF EXAM: 11/10/2021 COMPARISON: None HISTORY: Abdominal pain and peritoneal dialysis port site. CT DLP: 419 mGycm Automated exposure control for dose reduction was used. Images obtained from the diaphragm to the floor of the pelvis without contrast. There is some mild interstitial infiltrate and atelectasis at the lung bases. Heart size is normal. T here is no pericardial effusion. There is mild pneumoperitoneum consistent with dialysis catheter. Liver is intact. The bile ducts are nondilated. Gallbladder appears normal. The spleen is intact. The stomach is intact. There is no evidence of pancreatic mass. There is no adrenal mass. Kidneys have normal size. There are bilateral renal cortical cysts measurin g up to 3 cm. There is no hydronephrosis. There is no retroperitoneal adenopathy. Bladder distends sm oothly. There is no inguinal hernia. There is tiny amount of fluid in the pelvis consistent with dial ysis. There are numerous sigmoid diverticula. No diverticulitis. There is no mesenteric edema. There is no evidence of a bowel obstruction. The lumbar vertebra show normal alignment. There is some mild compression deformity of L2 and L3 and L4 up to 30%. The bony pelvis is intact. The hip joints are intact. There is dialysis catheter in the right paracolic gutter. No evidence of any significant fluid collection around the catheter. IMPRESSION: Mild interstitial infiltrate and subsegmental atelectasis at the lung bases. Dialysis catheter appears in good position. No evidence of a pathologic fluid collection. Colonic diverticulosis without diverticulitis. Atherosclerotic vascular disease.
[2021-11-10] MEDS ORDERED: HYDROcodone/APAP 5-325MG 1 EACH TAB PO STA (21:39)
== END 2021-11-10 22:12 | disposition home or self-care (01) ==
LOC: EC 16:32
DX: R10.31 Right lower quadrant pain (principal); I12.0 Hypertensive chronic kidney disease with stage 5 chronic kidney disease or end stage renal disease; N18.6 End stage renal disease; J44.9 Chronic obstructive pulmonary disease, unspecified; E78.5 Hyperlipidemia, unspecified; K21.9 Gastro-esophageal reflux disease without esophagitis; M19.90 Unspecified osteoarthritis, unspecified site; F41.0 Panic disorder [episodic paroxysmal anxiety]; Z99.2 Dependence on renal dialysis; Z79.82 Long term (current) use of aspirin; Z79.899 Other long term (current) drug therapy
CPT/HCPCS: 36415; 80053; 82150; 83605; 83690; 85025; 87040; 74176; 99284; Q9967

== ENCOUNTER 2022-03-06 12:28 | Inpatient (IN) | payer MEDICARE, BC ==
[2022-03-06] MEDS ORDERED: SODIUM CHLORIDE 0.9% 1,000 ML IV ONE (13:20)
--- NOTE | 2022-03-06 13:39 | ED ---
General Adult HPI - General Chief complaint: Weakness Stated complaint: Covid+,Wants antibodies Time Seen by Provider: 03/06/22 12:50 Source: patient, family, RN notes reviewed Mode of arrival: wheelchair Limitations: no limitations - History of Present Illness Initial comments: 76-year-old female presents emergency Department chief complaint of not feeling well. She has not felt well for one week. Patient tested positive for COVID- 19. Patient states that she just very fatigued, weak will not eating and drinking well she has had some nausea vomiting diarrhea associated. Patient has no chest pain or shortness of breath. Patient denies any recent fevers or chills no body aches. Patient states that she does want monoclonal antibodies. - Related Data Home Medications Medication Instructions Recorded Confirmed Metoprolol Succinate [Toprol Xl] 50 mg PO DAILY 03/11/19 10/11/21 Aspirin EC [Ecotrin Low Dose] 81 mg PO DAILY 08/05/19 10/11/21 Rosuvastatin [Crestor] 20 mg PO DAILY 08/05/19 10/11/21 Furosemide [Lasix] 40 mg PO DAILY 04/07/20 10/11/21 Spironolactone 25 mg PO DAILY 04/07/20 10/11/21 Losartan Potassium [Cozaar] 25 mg PO HS 09/20/20 10/11/21 Ergocalciferol [Vitamin D2 (1250 1,250 mcg PO Q14D 10/13/20 10/11/21 Mcg = 69559 Iu)] Esomeprazole Magnesium [NexIUM] 20 mg PO DAILY 10/13/20 10/11/21 Potassium Chloride [Potassium 10 meq PO Q48H 10/13/20 10/11/21 Chloride ER] Sodium Bicarbonate Tab 650 mg PO DAILY 09/18/21 10/11/21 ALPRAZolam [Xanax] 0.125 - 0.25 mg PO BID PRN 10/11/21 10/11/21 Magnesium Oxide [Mag-Ox] 400 mg PO BID 10/11/21 10/11/21 Mirtazapine [Remeron] 7.5 mg PO BID 10/11/21 10/11/21 Previous Rx's Medication Instructions Recorded Cyclobenzaprine [Flexeril] 10 mg PO TID PRN #15 tab 09/18/21 Meclizine [Antivert] 25 mg PO TID PRN #30 tab 09/18/21 Famotidine [Pepcid] 20 mg PO BID #60 tablet 10/12/21 HYDROcodone/APAP 10-325MG [[place] 1 tab PO Q6HR PRN 3 Days #12 tab 10/12/21 10-325] predniSONE 10 mg PO DIRECTED #30 tab 10/12/21 HYDROcodone/APAP 5-325MG [[place] 1 tab PO Q6HR PRN #12 tab 11/10/21 5-325] Allergies Allergy/AdvReac Type Severity Reaction Status Date / Time No Known Allergies Allergy Verified 03/06/22 12:43 Review of Systems ROS Statement: Those systems with pertinent positive or pertinent negative responses have been documented in the HPI. ROS Other: All systems not noted in ROS Statement are negative. Past Medical History Past Medical History: Blood Disorder, Cancer, COPD, Dialysis, Eye Disorder, GERD/Reflux, Hyperlipidemia, Hypertension, Osteoarthritis (OA), Renal Disease Additional Past Medical History / Comment(s): HX CERVICAL CA. KINZA CATARACTS. murmur. IRON DEFICIENCY ANEMIA. peritoneal dialysis History of Any Multi-Drug Resistant Organisms: None Reported Past Surgical History: Heart Catheterization With Stent Additional Past Surgical History / Comment(s): TOTAL RT KNEE. COLONOSCOPY. may heart cath with stent Past Anesthesia/Blood Transfusion Reactions: No Reported Reaction Date of Last Stent Placement:: 05/2019 Past Psychological History: Anxiety, Panic Disorder Smoking Status: Never smoker Past Alcohol Use History: None Reported Past Drug Use History: None Reported - Past Family History Mother Family Medical History: No Reported History General Exam Limitations: no limitations General appearance: alert, in no apparent distress Head exam: Present: atraumatic, normocephalic, normal inspection Eye exam: Present: normal appearance, PERRL, EOMI. Absent: scleral icterus, con junctival injection, periorbital swelling ENT exam: Present: normal exam, mucous membranes moist Neck exam: Present: normal inspection, full ROM. Absent: tenderness, meningismus, lymphadenopathy Respiratory exam: Present: normal lung sounds bilaterally. Absent: respiratory distress, wheezes, rales, rhonchi, stridor Cardiovascular Exam: Present: regular rate, normal rhythm, normal heart sounds. Absent: systolic murmur, diastolic murmur, rubs, gallop, clicks GI/Abdominal exam: Present: soft, normal bowel sounds. Absent: distended, tenderness, guarding, rebound, rigid Course Vital Signs 03/06/22 12:37 Temperature 97.5 F L Pulse Rate 69 Respiratory 18 Rate Blood Pressure 85/53 O2 Sat by Pulse 100 Oximetry Medical Decision Making - Medical Decision Making 76-year-old female sent for COVID-19. Patient found to be mildly hypotensive, labs were drawn shows acute on chronic renal failure, dehydration, hypokalemia. Patient will be admitted for renal failure, dehydration and hypokalemia will receive monoclonal antibodies for COVID-19. - Lab Data Result diagrams: 03/06/22 13:15 03/06/22 13:15 Lab Results 03/06/22 03/06/22 03/06/22 Range/Units 13:15 13:15 13:46 WBC 5.9 (3.8-10.6) k/uL RBC 3.83 (3.80-5.40) m/uL Hgb 12.6 (11.4-16.0) gm/dL Hct 36.0 (34.0-46.0) % MCV 94.1 (80.0-100.0) fL MCH 32.8 (25.0-35.0) pg MCHC 34.9 (31.0-37.0) g/dL RDW 13.1 (11.5-15.5) % Plt Count 229 (150-450) k/uL MPV 8.0 Neutrophils % 84 % Lymphocytes % 10 % Monocytes % 4 % Eosinophils % 0 % Basophils % 1 % Neutrophils # 5.0 (1.3-7.7) k/uL Lymphocytes # 0.6 L (1.0-4.8) k/uL Monocytes # 0.2 (0-1.0) k/uL Eosinophils # 0.0 (0-0.7) k/uL Basophils # 0.0 (0-0.2) k/uL Sodium 129 L (137-145) mmol/L Potassium 3.1 L (3.5-5.1) mmol/L Chloride 90 L (98-107) mmol/L Carbon Dioxide 22 (22-30) mmol/L Anion Gap 17 mmol/L BUN 47 H (7-17) mg/dL Creatinine 7.28 H* (0.52-1.04) mg/dL Est GFR (CKD-EPI)AfAm 6 (>60 ml/min/1.73 sqM) Est GFR (CKD-EPI)NonAf 5 (>60 ml/min/1.73 sqM) Glucose 109 H (74-99) mg/dL Calcium 7.2 L (8.4-10.2) mg/dL Total Bilirubin 0.1 L (0.2-1.3) mg/dL AST 35 (14-36) U/L ALT 20 (4-34) U/L Alkaline Phosphatase 66 (38-126) U/L Total Protein 6.1 L (6.3-8.2) g/dL Albumin 3.4 L (3.5-5.0) g/dL Coronavirus (PCR) Detected A (Not Detectd) Disposition Clinical Impression: Acute on chronic renal failure, Dehydration, Hypokalemia, COVID-19 [facility]position[facility] Condition: Fair Referrals: Daniel Saul MD [Primary Care Provider] - 1-2 days Time of Disposition: 14:45
[2022-03-06 13:50] LABS: Basophils % (A) 1 %; Eosinophils % (A) 0 %; HGB 12.6 gm/dL (11.4-16.0); Lymphocytes # (A) 0.6 k/uL (1.0-4.8); Lymphocytes % (A) 10 %; MCH 32.8 pg (25.0-35.0); MCHC 34.9 g/dL (31.0-37.0); MCV 94.1 fL (80.0-100.0); Monocytes # (A) 0.2 k/uL (0-1.0); Monocytes % (A) 4 %; Neutrophils % (A) 84 %; Platelet Count 229 k/uL (150-450); RBC 3.83 m/uL (3.80-5.40); RDW 13.1 % (11.5-15.5); WBC 5.9 k/uL (3.8-10.6)
[2022-03-06 14:05] LABS: Albumin 3.4 g/dL (3.5-5.0); Calcium 7.2 mg/dL (8.4-10.2); Potassium 3.1 mmol/L (3.5-5.1); Total Bilirubin 0.1 mg/dL (0.2-1.3); Total Protein 6.1 g/dL (6.3-8.2)
[2022-03-06] MEDS ORDERED: POTASSIUM CHLORIDE ER 20 MEQ TAB.ER PO STA (14:40)
[2022-03-06] MEDS ORDERED: BEBTELOVIMAB (EUA) 175 MG/2 ML VIAL IV ONE (14:45)
[2022-03-06] MEDS ORDERED: SODIUM CHLORIDE 0.9% 1,000 ML IV SCH ×2 (14:45)
[2022-03-06] MEDS ORDERED: ACETAMINOPHEN TAB 325 MG TAB PO PRN (14:45)
[2022-03-07] MEDS: SODIUM CHLORIDE 0.9% 1,000 ML IV SCH ×2 (00:22→17:21)
[2022-03-07] MEDS: DIALYSIS (PERIT 1.5%) 2,500 ML 37.5 G/2,500 ML BAG INTRAPERIT SCH ×4 (00:23→17:20)
[2022-03-07 08:13] LABS: African American GFR (CKD) 7 (>60 ml/min/1.73 sqM); Anion Gap 12 mmol/L; Blood Urea Nitrogen 49 mg/dL (7-17); Calcium 6.7 mg/dL (8.4-10.2); Carbon Dioxide 20 mmol/L (22-30); Chloride 98 mmol/L (98-107); Glucose 91 mg/dL (74-99); Non-African American GFR(CKD) 6 (>60 ml/min/1.73 sqM); Sodium 130 mmol/L (137-145)
[2022-03-07 08:14] LABS: Magnesium 1.8 mg/dL (1.6-2.3); Potassium 3.6 mmol/L (3.5-5.1)
[2022-03-07] MEDS ORDERED: PANTOPRAZOLE 40 MG/10 ML VIAL IVP SCH (12:15)
[2022-03-07] MEDS: ATORVASTATIN 40 MG TAB PO SCH (12:49)
[2022-03-07] MEDS: ZINC SULFATE 220 MG CAP PO SCH (12:49)
[2022-03-07] MEDS: ASCORBIC ACID 500 MG TAB PO SCH ×2 (12:49→19:43)
[2022-03-07] MEDS: CALCIUM ACETATE 667 MG TAB PO SCH (12:49)
[2022-03-07] MEDS: MAGNESIUM OXIDE 400 MG TAB PO SCH ×2 (12:49→19:43)
--- NOTE | 2022-03-07 14:08 | P.NPCON ---
History of Present Illness - Reason for Consult end stage renal disease - History of Present Illness Patient is a 76-year-old female with end-stage renal disease on peritoneal dialysis. She is admitted to the hospital with complaints of weakness and not feeling well. Patient did test positive for COVID-19. She admitted to decreased oral intake for past few days with occasional nausea and vomiting pacheco shen this has all improved currently. Patient denies any shortness of breath or cough or fever. Status post bebtelovimab yesterday. Review of Systems As per HPI Past Medical History Past Medical History: Blood Disorder, Cancer, COPD, Dialysis, Eye Disorder, GERD/Reflux, Hyperlipidemia, Hypertension, Osteoarthritis (OA), Renal Disease Additional Past Medical History / Comment(s): HX CERVICAL CA. KINZA CATARACTS. murmur. IRON DEFICIENCY ANEMIA. peritoneal dialysis History of Any Multi-Drug Resistant Organisms: None Reported Past Surgical History: Heart Catheterization With Stent Additional Past Surgical History / Comment(s): TOTAL RT KNEE. COLONOSCOPY. may 2019 heart cath with stent Past Anesthesia/Blood Transfusion Reactions: No Reported Reaction Date of Last Stent Placement:: 05/2019 Past Psychological History: Anxiety, Panic Disorder Smoking Status: Former smoker Past Alcohol Use History: None Reported Additional Past Alcohol Use History / Comment(s): SMOKED SINCE AGE 15, 1 PPD. Past Drug Use History: None Reported - Past Family History Mother Family Medical History: No Reported History Medications and Allergies Home Medications Medication Instructions Recorded Confirmed Type Metoprolol Succinate [Toprol Xl] 50 mg PO DAILY 03/11/19 03/06/22 History Aspirin EC [Ecotrin Low Dose] 81 mg PO DAILY 08/05/19 03/06/22 History Rosuvastatin [Crestor] 20 mg PO DAILY 08/05/19 03/06/22 History Losartan Potassium [Cozaar] 50 mg PO HS 09/20/20 03/06/22 History Ergocalciferol [Vitamin D2 (1250 1,250 mcg PO Q14D 10/13/20 03/06/22 History Mcg = 31537 Iu)] Esomeprazole Magnesium [NexIUM] 20 mg PO DAILY 10/13/20 03/06/22 History Magnesium Oxide [Mag-Ox] 400 mg PO BID 10/11/21 03/06/22 History Mirtazapine [Remeron] 15 mg PO HS 10/11/21 03/06/22 History Calcium Acetate [Phoslo] 1,334 mg PO DAILY 03/06/22 03/06/22 History Calcium Acetate [Phoslo] 667 mg PO HS 03/06/22 03/06/22 History Torsemide [Demadex] 20 mg PO DAILY 03/06/22 03/06/22 History amLODIPine 5 mg PO DAILY 03/06/22 03/06/22 History Allergies Allergy/AdvReac Type Severity Reaction Status Date / Time No Known Allergies Allergy Verified 03/06/22 12:43 Physical Exam Vitals: Vital Signs Temp Pulse Pulse Resp BP BP Pulse Ox 03/07/22 12:07 97.5 F L 69 18 103/60 98 03/07/22 08:00 98.1 F 67 16 121/74 95 03/07/22 05:18 97.9 F 61 16 122/70 97 03/07/22 00:24 97.6 F 61 16 111/61 97 03/06/22 21:12 97.5 F L 62 16 120/57 94 L 03/06/22 17:00 74 20 100/57 98 Intake and Output 03/06/22 03/07/22 03/07/22 22:59 06:59 14:59 Intake Total 300 Balance 300 Intake: Intake, IV Titration 300 Amount Sodium Chloride 0.9% 1, 300 000 ml @ 50 mls/hr IV . Q20H [facility] Rx#:[id number] Other: Weight 58.967 kg Awake, comfortable, not in any acute distress Alert oriented 3 Examination of the heart S1 and S2 Examination of the lungs bilateral breath sounds are heard Abdomen is soft nontender Examination of the lower extremities shows no evidence of edema [employer]ISING [employer] exam grossly intact Results - Lab Results Most recent lab results Calcium 6.7 mg/dL (8.4-10.2) L 03/07/22 06:29 Magnesium 1.8 mg/dL (1.6-2.3) 03/07/22 06:29 03/06/22 13:15 03/07/22 06:29 Assessment and Plan Assessment: 1. End-stage renal disease on peritoneal dialysis. Continue with CAPD 2. COVID-19 infection with mostly GI symptoms. O2 sats 98% on room air. Patient is currently afebrile 3. CK D mineral bone disorder 4. Hypokalemia status post replacement 5. Hypovolemic hyponatremia status post normal saline 6. Hypotension mostly hypovolemic currently improved with IV fluids. Plan: Continue with saline at 50 mL an hour Encourage increased oral intake Continue with current orders for CAPD Rodo Allen Thank you for the consultation. We'll continue to follow the patient with you during her hospitalization
[2022-03-07] MEDS ORDERED: ONDANSETRON 4 MG/2 ML VIAL IVP PRN (15:07)
--- NOTE | 2022-03-07 15:13 | P.CONS ---
History of Present Illness - Reason for Consult Consult date: 03/07/22 Medical management Requesting physician: Rober Mojica - Chief Complaint Nausea vomiting diarrhea 1 week, positive for COVID-19 - History of Present Illness This is 76-year-old female with past medical history of COPD, gastroesophageal reflux disease, hypertension, cervical cancer, iron deficient anemia, anxiety, panic disorder, end-stage renal disease maintained on peritoneal dialysis and multiple other medical issues presented to the ER with nausea vomiting diarrhea 1 week accompanied by generalized fatigue. Denies fevers or chills. Denies body aches Denies chest pain, palpitations or shortness of breath. Denies lightheadedness, dizziness or focal deficits. Tested positive for COVID-19, declined monoclonal antibodies. VSS, Maintaining O2 sats in the mid to high 90s on room air. Blood pressures soft on admission. Nausea vomiting diarrhea subsided. Review of Systems ROS Statement: Those systems with pertinent positive or pertinent negative responses have been documented in the HPI. ROS Other: All systems not noted in ROS Statement are negative. Past Medical History Past Medical History: Blood Disorder, Cancer, COPD, Dialysis, Eye Disorder, GERD/Reflux, Hyperlipidemia, Hypertension, Osteoarthritis (OA), Renal Disease Additional Past Medical History / Comment(s): HX CERVICAL CA. KINZA CATARACTS. murmur. IRON DEFICIENCY ANEMIA. peritoneal dialysis History of Any Multi-Drug Resistant Organisms: None Reported Past Surgical History: Heart Catheterization With Stent Additional Past Surgical History / Comment(s): TOTAL RT KNEE. COLONOSCOPY. may 2019 heart cath with stent Past Anesthesia/Blood Transfusion Reactions: No Reported Reaction Date of Last Stent Placement:: 05/2019 Past Psychological History: Anxiety, Panic Disorder Smoking Status: Former smoker Past Alcohol Use History: None Reported Additional Past Alcohol Use History / Comment(s): SMOKED SINCE AGE 15, 1 PPD. Past Drug Use History: None Reported - Past Family History Mother Family Medical History: No Reported History Medications and Allergies Home Medications Medication Instructions Recorded Confirmed Type Metoprolol Succinate [Toprol Xl] 50 mg PO DAILY 03/11/19 03/06/22 History Aspirin EC [Ecotrin Low Dose] 81 mg PO DAILY 08/05/19 03/06/22 History Rosuvastatin [Crestor] 20 mg PO DAILY 08/05/19 03/06/22 History Losartan Potassium [Cozaar] 50 mg PO HS 09/20/20 03/06/22 History Ergocalciferol [Vitamin D2 (1250 1,250 mcg PO Q14D 10/13/20 03/06/22 History Mcg = 41188 Iu)] Esomeprazole Magnesium [NexIUM] 20 mg PO DAILY 10/13/20 03/06/22 History Magnesium Oxide [Mag-Ox] 400 mg PO BID 10/11/21 03/06/22 History Mirtazapine [Remeron] 15 mg PO HS 10/11/21 03/06/22 History Calcium Acetate [Phoslo] 1,334 mg PO DAILY 03/06/22 03/06/22 History Calcium Acetate [Phoslo] 667 mg PO HS 03/06/22 03/06/22 History Torsemide [Demadex] 20 mg PO DAILY 03/06/22 03/06/22 History amLODIPine 5 mg PO DAILY 03/06/22 03/06/22 History Allergies Allergy/AdvReac Type Severity Reaction Status Date / Time No Known Allergies Allergy Verified 03/06/22 12:43 Physical Exam Vitals: Vital Signs Temp Pulse Pulse Resp BP BP Pulse Ox 03/07/22 08:00 98.1 F 67 16 121/74 95 03/07/22 05:18 97.9 F 61 16 122/70 97 03/07/22 00:24 97.6 F 61 16 111/61 97 03/06/22 21:12 97.5 F L 62 16 120/57 94 L 03/06/22 17:00 74 20 100/57 98 03/06/22 12:37 97.5 F L 69 18 85/53 100 Intake and Output 03/06/22 03/07/22 03/07/22 22:59 06:59 14:59 Intake Total 300 Balance 300 Intake: Intake, IV Titration 300 Amount Sodium Chloride 0.9% 1, 300 000 ml @ 50 mls/hr IV . Q20H [facility] Rx#:[id number] Other: Weight 58.967 kg PHYSICAL EXAM: VITAL SIGNS: As above GENERAL: sitting up in bed, no acute distress HEENT: Conjunctivae normal. eyes normal. NECK: Supple, No JVD. No thyroid enlargement. No LNs CARDIOVASCULAR: S1, S2 regular.No murmur RESPIRATION: Breath sounds diminished in the bases. No rhonchi or crackles. No bronchial breathing. ABDOMEN: Soft, nontender . No guarding. no masses palpable. No ascites, No hepatosplenomegaly.Bowel sounds heard. PD catheter. EXTREMITIES: No edema, no cyanosis or clubbing. PSYCHIATRY: Alert and oriented to person and place, mood and affect normal. NERVOUS SYSTEM: Cranial N 2-12 grossly normal.No focal deficits. Strength and sensation grossly intact. Skin: Warm and dry, no rash. Results CBC & Chem 7: 03/06/22 13:15 03/07/22 06:29 Labs: Abnormal Lab Results - Last 24 Hours (Table) 03/06/22 03/06/22 03/06/22 Range/Units 13:15 13:15 13:46 Lymphocytes # 0.6 L (1.0-4.8) k/uL Sodium 129 L (137-145) mmol/L Potassium 3.1 L (3.5-5.1) mmol/L Chloride 90 L (98-107) mmol/L Carbon Dioxide (22-30) mmol/L BUN 47 H (7-17) mg/dL Creatinine 7.28 H* (0.52-1.04) mg/dL Glucose 109 H (74-99) mg/dL Calcium 7.2 L (8.4-10.2) mg/dL Total Bilirubin 0.1 L (0.2-1.3) mg/dL Total Protein 6.1 L (6.3-8.2) g/dL Albumin 3.4 L (3.5-5.0) g/dL Coronavirus (PCR) Detected A (Not Detectd) 03/07/22 Range/Units 06:29 Lymphocytes # (1.0-4.8) k/uL Sodium 130 L (137-145) mmol/L Potassium (3.5-5.1) mmol/L Chloride (98-107) mmol/L Carbon Dioxide 20 L (22-30) mmol/L BUN 49 H (7-17) mg/dL Creatinine 6.47 H (0.52-1.04) mg/dL Glucose (74-99) mg/dL Calcium 6.7 L (8.4-10.2) mg/dL Total Bilirubin (0.2-1.3) mg/dL Total Protein (6.3-8.2) g/dL Albumin (3.5-5.0) g/dL Coronavirus (PCR) (Not Detectd) Assessment and Plan Assessment: Acute Covid-19 infection, declined monoclonal antibodies Nausea vomiting diarrhea 1 week secondary to the above Dehydration secondary to the above Hypokalemia Hypovolemic hyponatremia Hypotension present on admission End-stage renal failure maintained on peritoneal dialysis Chronic left shoulder inflammation, x-ray reporting moderate to severe narrowing of the glenohumeral joint with subchondral cystic change, mild spurring of acromioclavicular joint.Suspect worsening arthritis Chronic Bilateral internal carotid artery stenosis 70% reported per Doppler, further follows outpatient with vascular surgery. Bilateral cataracts Iron deficient anemia, history of CAD, history of stent placement Chronic systolic heart failure, EF 45-50% Hypertension Hyperlipidemia COPD Gastroesophageal reflux disease History of cervical cancer Degenerative joint disease Anxiety, history of Panic disorder, history of Ongoing nicotine dependence 1 pack per day since age 15 Plan: Continue on current medication regime ,monitoring and symptomatic treatment. Covid Cocktail. Electrolyte replacement/ CAPD as per nephrology. Home meds reviewed and resumed accordingly. PPI for GI prophylaxis. Thank you for the consult. The impression and plan of care has been dictated as directed. : I performed a history and examination of this patient, discussed the same with the dictator. I agree with the dictator's note ,documented as a scribe. Any additional findings or plans will be noted.
[2022-03-07] MEDS ORDERED: MIRTAZAPINE 15 MG TAB PO SCH (21:00)
[2022-03-07] MEDS ORDERED: CEPHALEXIN 500 MG CAP PO SCH (21:00)
[2022-03-07] MEDS ORDERED: CALCIUM ACETATE 667 MG TAB PO SCH (21:00)
[2022-03-08] MEDS: DIALYSIS (PERIT 1.5%) 2,500 ML 37.5 G/2,500 ML BAG INTRAPERIT SCH ×3 (00:01→12:28)
[2022-03-08 05:56] VITALS: BP 148/84; PULSE 67; TEMP 97.5
[2022-03-08 07:21] VITALS: RESP 17
[2022-03-08] MEDS ORDERED: PANTOPRAZOLE 40 MG TABLET PO SCH (07:30)
[2022-03-08] MEDS: ATORVASTATIN 40 MG TAB PO SCH (07:36)
[2022-03-08] MEDS: MAGNESIUM OXIDE 400 MG TAB PO SCH (07:36)
[2022-03-08] MEDS: ASCORBIC ACID 500 MG TAB PO SCH (07:36)
[2022-03-08] MEDS: ZINC SULFATE 220 MG CAP PO SCH (07:36)
[2022-03-08 09:16] LABS: African American GFR (CKD) 8.9 (60.0-200.0); Anion Gap 15.3 mmol/L (10.00-18.00); BUN/Creat Ratio 6.94 Ratio (12.00-20.00); Blood Urea Nitrogen 35.4 mg/dL (9.0-27.0); Calcium 7.8 mg/dL (8.7-10.3); Carbon Dioxide 22.7 mmol/L (20.0-27.5); Non-African American GFR(CKD) 7.7 (60.0-200.0); Potassium 3.1 mmol/L (3.5-5.5)
[2022-03-08] MEDS ORDERED: POTASSIUM CHLORIDE ER 20 MEQ TAB.ER PO STA (10:05)
[2022-03-08] MEDS ORDERED: POTASSIUM CHLORIDE ER 20 MEQ TAB.ER PO ONE (12:00)
[2022-03-08] MEDS: CALCIUM ACETATE 667 MG TAB PO SCH (12:27)
--- NOTE | 2022-03-08 14:52 | P.PN ---
Subjective Patient is seen for follow-up for end-stage renal disease. She is CAPD. Patient was treated for exit site infection about 1 week ago. Patient is complaining of burning sensation during her treatment yesterday. No drainage noted from the site. No fevers. Next Nausea and vomiting improved. Oral intake is fair. Objective - Vital Signs Vital signs: Vital Signs Temp 97.5 F L 03/08/22 07:20 Pulse 67 03/08/22 07:20 Resp 17 03/08/22 07:20 BP 148/84 03/08/22 07:20 Pulse Ox 98 03/08/22 07:20 FiO2 Intake & Output 03/07/22 03/08/22 03/08/22 18:59 06:59 18:59 Intake Total 600 Output Total 200 400 Balance 400 -400 Intake: Intake, IV Titration 600 Amount Sodium Chloride 0.9% 1, 600 000 ml @ 50 mls/hr IV . Q20H [facility] Rx#:[id number] Output: Urine 200 400 Other: Voiding Method Toilet Toilet # Voids 1 - Exam Awake, comfortable, not in any acute distress Examination of the heart S1 and S2 Examination lungs bilateral breath sounds are heard Abdomen is soft nontender. Exit site with no drainage Examination of the lower extremities shows no evidence of edema EMERGENCY ROOM NURSE exam grossly intact - Labs CBC & Chem 7: 03/06/22 13:15 03/08/22 05:32 Labs: Abnormal Lab Results - Last 24 Hours (Table) 03/08/22 Range/Units 05:32 Potassium 3.1 L (3.5-5.5) mmol/L BUN 35.4 H (9.0-27.0) mg/dL Creatinine 5.1 H (0.6-1.5) mg/dL Est GFR (CKD-EPI)AfAm 8.9 L (60.0-200.0) Est GFR (CKD-EPI)NonAf 7.7 L (60.0-200.0) BUN/Creatinine Ratio 6.94 L (12.00-20.00) Ratio Calcium 7.8 L (8.7-10.3) mg/dL Assessment and Plan Assessment: 1. End-stage renal disease on peritoneal dialysis. Continue with CAPD 2. COVID-19 infection with mostly GI symptoms. O2 sats 98% on room air. Patient is currently afebrile 3. CK D mineral bone disorder 4. Hypokalemia status post replacement 5. Hypovolemic hyponatremia status post normal saline 6. Hypotension mostly hypovolemic currently improved with IV fluids. 7. Recent exit site infection status post antibiotics. No drainage noted. Plan: Add Keflex 500 twice a day for 1 week Patient can be discharged from nephrology standpoint. Replace potassium
[2022-03-08] MEDS ORDERED: CEPHALEXIN 500 MG CAP PO SCH (21:00)
--- NOTE | 2022-03-09 14:14 | P.DS ---
Providers Date of admission: 03/06/22 14:20 Expected date of discharge: 03/08/22 Attending physician: Rober Mojica Consults: 03/06/22 14:45 Consult Physician Urgent Consulting Provider: Rober Mojica Consult Reason/Comments: Acute on chronic renal failure Do you want consulting provider notified?: Yes 03/06/22 22:48 Consult Physician Routine Consulting Provider: Daniel Saul Consult Reason/Comments: known Do you want consulting provider notified?: Yes, Notify in am Primary care physician: Daniel Saul Hospital Course: Final Diagnoses: Acute Covid-19 infection, declined monoclonal antibodies Nausea vomiting diarrhea 1 week secondary to the above Dehydration secondary to the above Hypokalemia Hypovolemic hyponatremia Hypotension present on admission End-stage renal failure maintained on peritoneal dialysis Chronic left shoulder inflammation, x-ray reporting moderate to severe narrowing of the glenohumeral joint with subchondral cystic change, mild spurring of acromioclavicular joint.Suspect worsening arthritis Chronic Bilateral internal carotid artery stenosis 70% reported per Doppler, further follows outpatient with vascular surgery. Bilateral cataracts Iron deficient anemia, history of CAD, history of stent placement Chronic systolic heart failure, EF 45-50% Hypertension Hyperlipidemia COPD Gastroesophageal reflux disease History of cervical cancer Degenerative joint disease Anxiety, history of Panic disorder, history of Ongoing nicotine dependence 1 pack per day since age 15 Hospital course:This is 76-year-old female with past medical history of COPD, gastroesophageal reflux disease, hypertension, cervical cancer, iron deficient anemia, anxiety, panic disorder, end-stage renal disease maintained on peritoneal dialysis and multiple other medical issues presented to the ER with nausea vomiting diarrhea 1 week accompanied by generalized fatigue. Denies fevers or chills. Denies body aches Denies chest pain, palpitations or shor tness of breath. Denies lightheadedness, dizziness or focal deficits. Tested positive for COVID-19, declined monoclonal antibodies. VSS, Maintaining O2 sats in the mid to high 90s on room air. Blood pressures soft on admission. Nausea vomiting diarrhea subsided. Covid Cocktail. Electrolyte replacement/ CAPD as per nephrology. Diet intake, Nausea and vomiting improved. Afebrile. Patient will be discharged home today in a stable condition with guarded prognosis. Pending final DC recommendations and clearance per nephrology. Patient is not a candidate for Paxlovid secondary to patient's GFR. The impression and plan of care has been dictated as directed. : I performed a history and examination of this patient, discussed the same with the dictator. I agree with the dictator's note ,documented as a scribe. Any additional findings or plans will be noted. Patient Condition at Discharge: Stable Plan - Discharge Summary Discharge Rx Participant: Yes New Discharge Prescriptions: New Ascorbic Acid [Vitamin C] 500 mg PO BID tab Zinc Sulfate [Orazinc] 220 mg PO DAILY #30 cap Continue Metoprolol Succinate [Toprol Xl] 50 mg PO DAILY Aspirin EC [Ecotrin Low Dose] 81 mg PO DAILY Rosuvastatin [Crestor] 20 mg PO DAILY Losartan Potassium [Cozaar] 50 mg PO HS Ergocalciferol [Vitamin D2 (1250 Mcg = 15747 Iu)] 1,250 mcg PO Q14D Esomeprazole Magnesium [NexIUM] 20 mg PO DAILY Magnesium Oxide [Mag-Ox] 400 mg PO BID Mirtazapine [Remeron] 15 mg PO HS amLODIPine 5 mg PO DAILY Calcium Acetate [PhosLo] 667 mg PO HS Calcium Acetate [PhosLo] 1,334 mg PO DAILY Torsemide [Demadex] 20 mg PO DAILY Discharge Medication List Metoprolol Succinate [Toprol Xl] 50 mg PO DAILY 03/11/19 [History] Aspirin EC [Ecotrin Low Dose] 81 mg PO DAILY 08/05/19 [History] Rosuvastatin [Crestor] 20 mg PO DAILY 08/05/19 [History] Losartan Potassium [Cozaar] 50 mg PO HS 09/20/20 [History] Ergocalciferol [Vitamin D2 (1250 Mcg = 87366 Iu)] 1,250 mcg PO Q14D 10/13/20 [History] Esomeprazole Magnesium [NexIUM] 20 mg PO DAILY 10/13/20 [History] Magnesium Oxide [Mag-Ox] 400 mg PO BID 10/11/21 [History] Mirtazapine [Remeron] 15 mg PO HS 10/11/21 [History] Calcium Acetate [PhosLo] 1,334 mg PO DAILY 03/06/22 [History] Calcium Acetate [PhosLo] 667 mg PO HS 03/06/22 [History] Torsemide [Demadex] 20 mg PO DAILY 03/06/22 [History] amLODIPine 5 mg PO DAILY 03/06/22 [History] Ascorbic Acid [Vitamin C] 500 mg PO BID tab 03/08/22 [Rx] Zinc Sulfate [Orazinc] 220 mg PO DAILY #30 cap 03/08/22 [Rx] Follow up Appointment(s)/Referral(s): Daniel Saul MD [Primary Care Provider] - 3 Days (Tele visit. Please call office when at home to set thos up.) Patient Instructions/Handouts: COVID-19 (Coronavirus Disease 2019) (DC) Activity/Diet/Wound Care/Special Instructions: Patient's GFR around 6, Paxlovid not recommended for GFR less than 30. Discharge Disposition: HOME SELF-CARE
[2022-03-10] MEDS ORDERED: ERGOCALCIFEROL 1,250 MCG (50,000 IU) CAPSULE PO SCH (09:00)
== END 2022-03-08 14:34 | disposition home or self-care (01) | DRG 177 ==
LOC: EC 12:28 → 4SSUR 14:20
PROVIDERS: ADMIT Internal Medicine; ATTEND Internal Medicine
PROC: 3E1M39Z Irrigation of Peritoneal Cavity using Dialysate, Percutaneous Approach (ICD-10-PCS; principal; 2022-03-07)
DX: U07.1 COVID-19 (principal); N18.6 End stage renal disease; I13.2 Hypertensive heart and chronic kidney disease with heart failure and with stage 5 chronic kidney disease, or end stage renal disease; I50.22 Chronic systolic (congestive) heart failure; N17.9 Acute kidney failure, unspecified; E87.1 Hypo-osmolality and hyponatremia; J44.9 Chronic obstructive pulmonary disease, unspecified; R19.7 Diarrhea, unspecified; I95.9 Hypotension, unspecified; R11.2 Nausea with vomiting, unspecified; D50.9 Iron deficiency anemia, unspecified; E78.5 Hyperlipidemia, unspecified; E86.0 Dehydration; E86.1 Hypovolemia; E87.6 Hypokalemia; I65.23 Occlusion and stenosis of bilateral carotid arteries; M19.012 Primary osteoarthritis, left shoulder; I25.10 Atherosclerotic heart disease of native coronary artery without angina pectoris; F41.0 Panic disorder [episodic paroxysmal anxiety]; H26.9 Unspecified cataract; K21.9 Gastro-esophageal reflux disease without esophagitis; M19.90 Unspecified osteoarthritis, unspecified site; E83.9 Disorder of mineral metabolism, unspecified; Z79.82 Long term (current) use of aspirin; Z79.899 Other long term (current) drug therapy; Z85.41 Personal history of malignant neoplasm of cervix uteri; Z99.2 Dependence on renal dialysis; Z87.891 Personal history of nicotine dependence; Z95.5 Presence of coronary angioplasty implant and graft
CPT/HCPCS: 36415; 80048; 80053; 83735; 85025; 87635; 96360; 99285

== ENCOUNTER 2022-03-18 14:29 | Emergency (ER) | payer MEDICARE, BC ==
[2022-03-18 14:47] VITALS: RESP 18
[2022-03-18] MEDS ORDERED: HYDROcodone/APAP 7.5-325MG 1 EACH TAB PO ONE (15:06)
--- NOTE | 2022-03-18 15:27 | XR ---
EXAMINATION TYPE: XR lumbar spine 2 or 3V DATE OF EXAM: 03/18/2022 3:12 PM INDICATION: Patient age:Female; 77 years old; Reason for study: back pain, no injury; COMPARISON: Lumbar spine radiograph 03/23/2018. TECHNIQUE: Frontal, lateral and coned in L5-S1 lateral views of the spine. FINDINGS: Age-indeterminate anterior wedge compression deformity of the L2 vertebral body when compar ed to prior examination in 2018. There is approximately 10% height loss or retropulsion. Redemonstrat ion compression deformity of the L3 vertebral body with approximately 10% height loss and retropulsio n. Mild retrolisthesis of L2 on L3 and grade 1 anterolisthesis of L4-L5. Remote left T2 transverse pr ocess fracture. Generalized osseous demineralization and multilevel moderate degenerative changes of the lumbar spine. 5 lumbar type vertebral bodies identified. Vascular sclerosis. Dialysis peritoneal catheter identified in the right lower quadrant. IMPRESSION: * Age-indeterminate anterior wedge compression of the L2 vertebral body with compared to prior exami [place] 2017. Correlate with point tenderness. * Stable L3 compression deformity. * Similar mild retrolisthesis of L2 on L3 and grade 1 anterolisthesis of L4 on L5. * Moderate multilevel degenerative disc disease.
[2022-03-18] MEDS ORDERED: ORPHENADRINE 30 MG/ML 2 ML VIAL IVP STA (15:38)
[2022-03-18] MEDS ORDERED: ACET/COD 300 MG/30 MG STARTER PACK 6 TAB BTL PO STA (16:25)
--- NOTE | 2022-03-18 16:26 | ED ---
Back Pain HPI - General Chief Complaint: Back Pain/Injury Stated Complaint: back pain Time Seen by Provider: 03/18/22 14:48 Source: patient, EMS Limitations: no limitations - History of Present Illness Initial Comments: Patient is a 77-year-old female presenting with chief complaint of lower back pain. Patient has chronic lower back pain, states that today it is worse than normal. She denies any injury or trauma. It is located primarily on the left side. No loss of bowel or bladder control or saddle paresthesia. Patient has full range of motion, however there is pain with range of motion. No radiculopathy or leg weakness. No dysuria, hematuria, urgency, frequency, fever, chills, nausea, vomiting, abdominal pain, chest pain, shortness of breath. - Related Data Home Medications Medication Instructions Recorded Confirmed Metoprolol Succinate [Toprol Xl] 50 mg PO DAILY 03/11/19 03/06/22 Aspirin EC [Ecotrin Low Dose] 81 mg PO DAILY 08/05/19 03/06/22 Rosuvastatin [Crestor] 20 mg PO DAILY 08/05/19 03/06/22 Losartan Potassium [Cozaar] 50 mg PO HS 09/20/20 03/06/22 Ergocalciferol [Vitamin D2 (1250 1,250 mcg PO Q14D 10/13/20 03/06/22 Mcg = 51160 Iu)] Esomeprazole Magnesium [NexIUM] 20 mg PO DAILY 10/13/20 03/06/22 Magnesium Oxide [Mag-Ox] 400 mg PO BID 10/11/21 03/06/22 Mirtazapine [Remeron] 15 mg PO HS 10/11/21 03/06/22 Calcium Acetate [PhosLo] 1,334 mg PO DAILY 03/06/22 03/06/22 Calcium Acetate [PhosLo] 667 mg PO HS 03/06/22 03/06/22 Torsemide [Demadex] 20 mg PO DAILY 03/06/22 03/06/22 amLODIPine 5 mg PO DAILY 03/06/22 03/06/22 Previous Rx's Medication Instructions Recorded Ascorbic Acid [Vitamin C] 500 mg PO BID tab 03/08/22 Zinc Sulfate [Orazinc] 220 mg PO DAILY #30 cap 03/08/22 Cephalexin [Keflex] 500 mg PO BID 1 Days #14 cap 03/09/22 Allergies Allergy/AdvReac Type Severity Reaction Status Date / Time No Known Allergies Allergy Verified 03/06/22 12:43 Review of Systems ROS Statement: Those systems with pertinent positive or pertinent negative responses have been documented in the HPI. ROS Other: All systems not noted in ROS Statement are negative. Past Medical History Past Medical History: Blood Disorder, Cancer, COPD, Dialysis, Eye Disorder, GERD/Reflux, Hyperlipidemia, Hypertension, Osteoarthritis (OA), Renal Disease Additional Past Medical History / Comment(s): HX CERVICAL CA. KINZA CATARACTS. murmur. IRON DEFICIENCY ANEMIA. peritoneal dialysis History of Any Multi-Drug Resistant Organisms: None Reported Past Surgical History: Heart Catheterization With Stent Additional Past Surgical History / Comment(s): TOTAL RT KNEE. COLONOSCOPY. may 2019 heart cath with stent Past Anesthesia/Blood Transfusion Reactions: No Reported Reaction Date of Last Stent Placement:: 05/2019 Past Psychological History: Anxiety, Panic Disorder Smoking Status: Former smoker Past Alcohol Use History: None Reported Additional Past Alcohol Use History / Comment(s): SMOKED SINCE AGE 15, 1 PPD. Past Drug Use History: None Reported - Past Family History Mother Family Medical History: No Reported History General Exam Limitations: no limitations General appearance: alert, in no apparent distress Head exam: Present: atraumatic, normocephalic, normal inspection Eye exam: Present: normal appearance, EOMI. Absent: scleral icterus, periorbital swelling Neck exam: Present: normal inspection Respiratory exam: Present: normal lung sounds bilaterally. Absent: respiratory distress, wheezes, rales, rhonchi, stridor Cardiovascular Exam: Present: regular rate, normal rhythm, normal heart sounds. Absent: systolic murmur, diastolic murmur, rubs, gallop, clicks GI/Abdominal exam: Present: soft. Absent: distended, tenderness, guarding, rebound, rigid Back exam: Present: normal inspection, muscle spasm. Absent: CVA tenderness (R) , CVA tenderness (L), paraspinal tenderness, vertebral tenderness Neurological exam: Present: alert, oriented X3, CN II-XII intact Psychiatric exam: Present: normal affect, normal mood Skin exam: Present: warm, dry, intact, normal color. Absent: rash Course Vital Signs 03/18/22 03/18/22 14:41 17:05 Temperature 98.0 F 97.5 F L Pulse Rate 72 70 Respiratory 18 18 Rate Blood Pressure 147/92 140/86 O2 Sat by Pulse 97 97 Oximetry Medical Decision Making - Medical Decision Making Patient is a 77-year-old female presenting with chief complaint of lower back pain. It is located primarily on the left side, there are no red flag symptoms. No urinary symptoms. On examination there is no vertebral body tenderness or paraspinal muscle tenderness, patient states that it feels like a spasm. X-ray shows old compression fractures, no acute findings. Patient is given pain medication and reports improvement. I educated the patient on the chance of a kidney stone etiology for the pain, patient refused urine sample at this time stating that she will come back if it gets worse and she understands the risk. Patient is given [place] starter pack at discharge. Follow-up with PCP in one to 2 days. Report back to ER with any new or worsening symptoms. Patient conveyed verbal understanding and agreed to the plan. I discussed this case with my attending Dr. Suero. Disposition Clinical Impression: Mechanical back pain Disposition: HOME SELF-CARE Condition: Good Instructions (If sedation given, give patient instructions): Acute Low Back Pain (ED) Additional Instructions: Follow-up with PCP in one to 2 days. Report back to ER with any new or worseni ng symptoms. Is patient prescribed a controlled substance at d/c from ED?: No Referrals: Daniel Saul MD [Primary Care Provider] - 1-2 days Time of Disposition: 16:26
[2022-03-18 17:07] VITALS: BP 140/86; PULSE 70; TEMP 97.5
== END 2022-03-18 17:05 | disposition home or self-care (01) ==
LOC: EC 14:29
DX: M54.50 Low back pain, unspecified (principal); G89.4 Chronic pain syndrome; J44.9 Chronic obstructive pulmonary disease, unspecified; E78.5 Hyperlipidemia, unspecified; M19.90 Unspecified osteoarthritis, unspecified site; K21.9 Gastro-esophageal reflux disease without esophagitis; I12.9 Hypertensive chronic kidney disease with stage 1 through stage 4 chronic kidney disease, or unspecified chronic kidney disease; N18.9 Chronic kidney disease, unspecified; F41.9 Anxiety disorder, unspecified; Z87.891 Personal history of nicotine dependence; Z79.82 Long term (current) use of aspirin; Z79.899 Other long term (current) drug therapy
CPT/HCPCS: 72100; 99283; 96374; J2360

== ENCOUNTER → 2022-08-11 | Outpatient (CLI) | payer MEDICARE, BC ==
--- NOTE | 2022-08-11 15:17 | XR ---
EXAMINATION TYPE: XR chest 2V DATE OF EXAM: 08/11/2022 COMPARISON: None INDICATION: Right rib pain x2 weeks TECHNIQUE: Frontal and lateral views of the chest are obtained. FINDINGS: The heart size is normal. The pulmonary vasculature is normal. There may be some minimal platelike atelectasis at the left base. No pneumothorax is evident.. IMPRESSION: 1. Minimal plate atelectasis left lung base
--- NOTE | 2022-08-11 15:18 | XR ---
EXAMINATION TYPE: XR ribs RT DATE OF EXAM: 08/11/2022 COMPARISON: None HISTORY: Right rib pain TECHNIQUE: Right ribs are examined in 2 projections FINDINGS: No displaced rib fractures are evident. No pneumothorax is evident. IMPRESSION: 1. Normal two-view right ribs
== END | disposition home or self-care (01) ==
LOC: RADXRMAIN 12:48
PROVIDERS: ATTEND Family Medicine
DX: J98.11 Atelectasis (principal); R07.81 Pleurodynia
CPT/HCPCS: 71046

== ENCOUNTER 2023-04-03 06:16 | Day surgery (SDC) | payer MEDICARE, BC ==
[~2023-04-03 06:16] MED LIST changes: -ACETAMINOPHEN TAB 500 MG TAB PO PRN; +ALPRAZolam 0.25 MG TAB PO PRN; +ALPRAZolam 0.5 MG TAB PO PRN; +ASPIRIN 325 MG TAB PO STA; +ATORVASTATIN 80 MG TAB PO STA; -DEXAMETHASONE SOD PHOSPHATE 4 MG/ML 1 ML VIAL IV ONE; +HEPARIN SODIUM,PORCINE (1 ML) 2,500 UNIT in SODIUM CHLORIDE 0.9% 250 ML IRRIGATION PRN; +HEPARIN SODIUM,PORCINE 10,000 UNIT in SODIUM CHLORIDE 0.9% 1,000 ML IRRIGATION PRN; -HEPARIN SODIUM,PORCINE/PF 5,000 UNIT/0.5 ML SYRINGE SQ PRN; -HYDROmorphone 0.5 MG/0.5 ML SYRINGE IVP PRN; -LACTATED RINGERS 1,000 ML IV SCH; +NITROGLYCERIN SL TABS 0.4 MG TAB SUBLINGUAL PRN; -ONDANSETRON 4 MG/2 ML VIAL IVP ONE; +SODIUM CHLORIDE 0.9% 1,000 ML in EMPTY BAG 1 BAG IV SCH
[2023-04-03 07:16] VITALS: BP 139/68; PULSE 62; RESP 16; TEMP 98.4
[2023-04-03] MEDS ORDERED: VERAPAMIL 2.5 MG/ML 2 ML AMP ONE (07:18)
[2023-04-03] MEDS ORDERED: HEPARIN SODIUM 1,000 UN/ML (10ML VL) ONE (07:33)
[2023-04-03] MEDS ORDERED: MIDAZOLAM 2 MG/2 ML VIAL IVP ONE (07:46)
[2023-04-03] MEDS ORDERED: LIDOCAINE 1% INJ 10MG/ML (5 ML VIAL-PF) SQ ONE (07:47)
[2023-04-03] MEDS ORDERED: VERAPAMIL SYRINGE (5 MG/10 ML) INTRAARTER ONE (07:48)
[2023-04-03] MEDS ORDERED: HEPARIN SODIUM 1,000 UN/ML (10ML VL) IV ONE (07:51)
[2023-04-03] MEDS ORDERED: fentaNYL (PF) 50 MCG/ML 2 ML AMP ONE (07:53)
[2023-04-03] MEDS ORDERED: fentaNYL (PF) 50 MCG/ML 2 ML AMP IVP ONE (08:00)
[2023-04-03] MEDS ORDERED: IOPAMIDOL-370 200ML BTL INJ ONE (08:29)
[2023-04-03] MEDS ORDERED: RX INFO: IV CONTRAST WAS GIVEN 1 EACH MISC MISCELLANE PRN (08:31)
--- NOTE | 2023-04-03 08:38 | P.PCN ---
Date of Procedure: 04/03/23 Operative Findings: CARDIAC CATHETERIZATION PERFORMING PHYSICIAN: Donte Senior MD, RPVI PROCEDURE PERFORMED: 1. Selective right and left coronary angiogram 2. Left heart catheterization 3. iFR of the RCA and left main 4. Ultrasound-guided access of the right radial artery INDICATION: This is a 78-year-old female patient with CAD and prior stenting of the left circumflex as well as into stage renal disease on peritoneal dialysis as well as hypertension and dyslipidemia was seen in the office recently for further evaluation of chest discomfort. She underwent myocardial perfusion imaging stress test and that revealed inferolateral ischemia. In the light of that a heart catheterization was advised. COMPLICATION: None APPROACH: Right radial artery LEVEL OF SEDATION: Moderate with a sedation length of 43 minutes PROCEDURE DESCRIPTION: After obtaining an informed consent, the patient was brought to cardiac petroleum refinery laborer. Local anesthesia was performed using lidocaine subcutaneously. The right radial artery was cannulated using Seldinger technique, the guidewire passed easily, following that we advanced a 5-Belarusian sheath dilator assembly, the wire and dilator were removed and sheath was flushed. Following that, 2 mg of verapamil along with 5000 unit heparin were given. Selective right and left coronary angiogram using a 6-Belarusian JR4 and JL 3.5 catheters. Following that we did left heart catheterization using 6-Belarusian pigtail catheter. The procedure was completed there was no complication. SELECTIVE CORONARY ANGIOGRAM: The right coronary artery: Large caliber vessel and a dominant vessel. The RCA is heavily calcified. The mid RCA has an intermediate lesion appeared to be in the range of 60%. We did iFR and that came in to be nonischemic an 0.92. Left main: Heavily calcified. The ostial left main has intermediate lesion appeared to be in the range of 40-50%. We did perform also iFR and that came in to be ischemic and 0.88. The left circumflex: Large caliber vessel nondominant vessel. The LCx is a stented with mild to moderate disease just proximal to the stented segments. The LCx gives rises into an OM1 which is a moderate caliber vessel with ostial lesion appears to be in the range of 60-70% and OM 2 which is a large caliber vessel appears to be angiographically normal The left anterior descending artery: Large caliber vessel. The LAD has mild disease only. The LAD gives rises into a diagonal branch which appears to be angiographically normal HEMODYNAMICS: The LVEDP was 12 mmHg was no significant gradient across aortic valve iFR OF THE RCA AND LAD: Anticoagulation initiated using heparin with continuous ACT monitoring. After zeroing the Doppler wire and equalizing between the Doppler wire and guiding catheter which was initially JR 3.5 short tip guiding catheter in the RCA was engaged and then subsequently wired using the Doppler wire. After that a disc engage the right coronary artery and the The wire in the RCA. We did iFR and that came in to be nonischemic at 0.92. Subsequently I did equalizing between the Doppler wire and the JL 3.5 guiding catheter and subsequently the left main was engaged and then the LAD was wired. Then I disengaged the guide from the left main and we did iFR of the left main and that came in to be ischemic and 0.88. CONCLUSION: 1. Extremely calcified right and left coronary system 2. Severe ostial left main disease documented to be flow-limiting using iFR which came in to be at 0.88 3. Intermediate disease involving the mid right coronary artery appears to be nonflow limiting with iFR is 0.92 4. Normal left-sided filling pressure POSTPROCEDURE MANAGEMENT: Consult surgeon for the evaluation of coronary artery that was grafting
[2023-04-03] MEDS ORDERED: SODIUM CHLORIDE 0.9% 1,000 ML IV SCH (08:45)
--- NOTE | 2023-04-03 11:41 | US ---
EXAMINATION TYPE: US vein mapping BIL DATE OF EXAM: 04/03/2023 11:21 AM COMPARISON: NONE CLINICAL INDICATION: Female, 78 years old with history of PreOp Cardiac Surgery; open heart SIDE PERFORMED: Bilateral TECHNIQUE: Lower extremity saphenous vein is examined and measured utilizing real time linear array sonography. Patient History: Smoker: quit 2 years ago Heart Disease: N Previous DVT: N Vascular Surgery: Y, STENTS Discoloration: N Hypertension: Y Diabetes: N Paralysis: N Varicosities: Y Edema: N DUPLEX FINDINGS: Greater Saphenous: Color flow seen Lesser Saphenous: Color flow seen Measurements in mm: Right Greater Saphenous: Groin: 8.3X8.5 mm High Thigh: 4.1X4.1 mm Mid Thigh: 2.5X2.6 mm Above Knee: 1.9X1.9 mm Knee: 2.5X3.2 mm Below Knee: 1.2X1.6 mm Mid Calf: 1.0X1.3 mm At Ankle: 1.6X1.9 mm Left Greater Saphenous: Groin: 2.9X3.3 mm High Thigh: 2.7X2.9 mm Mid Thigh: 2.9X3.3 mm Above Knee: 1.9X2.9 mm Knee: 1.8X2.6 mm Below Knee: 1.5X2.0 mm Mid Calf: 1.7X2.0 mm At Ankle: 1.3X1.8 mm IMPRESSION: 1. Bilateral GSV measurements listed above. 2. Performing surgeon to determine viability as conduit.
--- NOTE | 2023-04-03 12:07 | US ---
EXAMINATION TYPE: US carotid duplex BILAT DATE OF EXAM: 04/03/2023 COMPARISON: NONE CLINICAL INDICATION: Female, 78 years old with history of Pre-Op Cardiac Surgery; OPEN HEART TECHNIQUE: Carotid duplex ultrasound examination. Indirect Doppler criteria was utilized. FINDINGS: EXAM MEASUREMENTS: RIGHT: Peak Systolic Velocity (PSV) cm/sec ----- Right CCA: 86.0 ----- Right ICA: 85.7 ----- Right ECA: 104.8 ICA/CCA ratio: 1.0 RIGHT: End Diastole cm/sec ----- Right CCA: 15.5 ----- Right ICA: 11.4 ----- Right ECA: 14.2 LEFT: Peak Systolic Velocity (PSV) cm/sec ----- Left CCA: 84.7 ----- Left ICA: 127.9 ----- Left ECA: 86.4 ICA/CCA ratio: 1.5 LEFT: End Diastole cm/sec ----- Left CCA: 16.8 ----- Left ICA: 0.0 ----- Left ECA: 0.0 VERTEBRALS (direction of flow): Right Vertebral: Antegrade Left Vertebral: Antegrade Rhythm: Normal SCREENING REPRESENTATIVE NOTES: Velocities are much lower than last US. LT bulb exhibits elevated velocity. Mild atherosclerotic IMPRESSION: 1. Less than 50% stenosis of the right carotid bifurcation. 2. 50-69% stenosis of the left carotid bifurcation. Criteria for Assigning % of Stenosis / Diameter reduction (Estimation based on the indirect measurements of the internal carotid artery velocities (ICA PSV). 1. Normal (no stenosis)=ICA PSV < 125 cm/s: ratio < 2.0: ICA EDV<40 cm/s. 2. Less than 50% stenosis=ICA PSV < 125 cm/s: ratio < 2.0: ICA EDV<40 cm/s. 3. 50 to 69% stenosis=ICA PSV of 125 to 230 cm/s: ration 2.0 ? 4.0: ICA EDV 40-100 cm/s. 4. Greater than 70% stenosis to near occlusion= ICA PSV > 230 cm/s: ratio > 4.0: ICA EDV > 100 cm/s. 5. Near occlusion= ICA PSV velocities may be low or undetectable: variable ratio and ICA EDV. 6. Total occlusion=unable to detect flow.
--- NOTE | 2023-04-03 12:27 | CA ---
Transthoracic Echo Report Name: Beulah Celeste Age: 78 Gender: F : 1945 Exam Date: 04/03/2023 11:23 Exam Location: [place] [facility] Ht (in): 60 Wt (lb): 150 Ordering Physician: Andre Maddox Attending/Referring Phys: Tan BORGES Tour Bus Driver Carisa Ma [facility] [[email or web address]] Procedure CPT: Indications: hx aortic valve stenosis Cardiac Hx: Technical Quality: Fair Contrast 1: Total Dose (mL): Contrast 2: Total Dose (mL): MEASUREMENTS (Male / Female) Normal Values 2D ECHO LV Diastolic Diameter PLAX 4.9 cm 4.2 - 5.9 / 3.9 - 5.3 cm LV Systolic Diameter PLAX 3.5 cm IVS Diastolic Thickness 0.7 cm 0.6 - 1.0 / 0.6 - 0.9 cm LVPW Diastolic Thickness 0.7 cm 0.6 - 1.0 / 0.6 - 0.9 cm LV Relative Wall Thickness 0.3 LVOT Diameter 2.0 cm Ascending Aorta Diameter 3.1 cm M-MODE Aortic Root Diameter MM 1.9 cm LA Systolic Diameter MM 4.1 cm LA Ao Ratio MM 2.2 AV Cusp Separation MM 0.7 cm DOPPLER AV Peak Velocity 230.5 cm/s AV Peak Gradient 21.2 mmHg AV Mean Velocity 156.4 cm/s AV Mean Gradient 11.0 mmHg AV Velocity Time Integral 57.0 cm LVOT Peak Velocity 92.6 cm/s LVOT Peak Gradient 3.4 mmHg LVOT Velocity Time Integral 25.1 cm LVOT Stroke Volume 79.6 cm??? LVOT Stroke Volume Index 48.2 ml/m??? LVOT Cardiac Index 2865.5 cm???/min???m??? AV Area Cont Eq vti 1.4 cm??? AV Area Cont Eq pk 1.3 cm??? Mitral E Point Velocity 79.9 cm/s Mitral A Point Velocity 63.2 cm/s Mitral E to A Ratio 1.3 MV Deceleration Time 218.6 ms TR Peak Velocity 254.0 cm/s TR Peak Gradient 25.8 mmHg Right Atrial Pressure 3.0 mmHg Pulmonary Artery Systolic Pressu 28.8 mmHg Right Ventricular Systolic Press 28.8 mmHg FINDINGS Left Ventricle Left ventricular wall thickness normal. Left ventricular cavity size normal. No obvious regional wall motion abnormalities. Left ventricular ejection fraction is estimated at 55%. Normal left ventricular systolic function. Right Ventricle Right ventricle at upper limits of normal. Right Atrium Normal right atrial size. Left Atrium Moderate left atrial dilatation. Mitral Valve Structurally normal mitral valve. Mitral valve thickened. Mild mitral regurgitation. Aortic Valve Aortic valve sclerosis. Diffuse thickening of the aortic valve cusps with reduced excursion. Mild aortic stenosis with a peak gradient of 21.2 mmHg and a mean gradient of 11 mmHg. Tricuspid Valve Structurally normal tricuspid valve. Mild tricuspid regurgitation. Pulmonic Valve Structurally normal pulmonic valve. No pulmonic regurgitation. Pericardium No pericardial effusion. Aorta Normal size aortic root and proximal ascending aorta. CONCLUSIONS Left ventricle size and systolic function is normal. There is mild increased velocity across aortic valve but no significant stenosis. Mean gradient is about 11 mmHg. There is mild mitral and tricuspid regurgitation no pericardial effusion. No significant pulmonary hypertension Previewed by: Dr. Stevie Mcnally MD (Electronically Signed) Final Date: 03 April 2023 12:26
--- NOTE | 2023-04-03 12:50 | CT ---
EXAMINATION TYPE: CT chest wo con CT DLP: 794 mGycm, Automated exposure control for dose reduction was used. DATE OF EXAM: 04/03/2023 12:40 PM COMPARISON: Chest radiograph same day. CLINICAL INDICATION:Female, 78 years old with history of pre op CABG assess aorta; PHH, Pre-op CABG, assess aorta. TECHNIQUE: Multiple axial images were obtained through the chest. Sagittal and coronal reformats were created for review. Contrast used: mL of (None if empty) Oral contrast used: (None if empty) FINDINGS: LUNGS/ PLEURA: Centrilobular emphysema changes seen throughout the lungs. Interstitial lung prominenc e is also present. No suspicious pulmonary nodules Lower lung air cyst present. Visualized. AIRWAY: Patent and unremarkable. HEART: Size within normal limits. MEDIASTINUM: No gross evidence of adenopathy. VASCULATURE: Severe aortic valve calcifications. The ascending thoracic aorta measures up to 3.0 cm. The aortic arch and descending thoracic aorta are within normal limits for size. Moderate atheroscler otic disease throughout the aorta. MUSCULOSKELETAL: Severe disc degeneration changes are present throughout the thoracolumbar spine. SOFT TISSUES/LYMPH NODES: Unremarkable. LOWER NECK: No significant findings. UPPER ABDOMEN: Atrophic appearing kidneys with multiple renal cysts. IMPRESSION: 1. Severe aortic valve calcifications. 2. No evidence for aortic aneurysm.
--- NOTE | 2023-04-03 12:52 | XR ---
EXAMINATION TYPE: XR chest 2V DATE OF EXAM: 04/03/2023 12:16 PM COMPARISON: Chest radiographs from 08/11/2022 TECHNIQUE: XR chest 2V Frontal and lateral views of the chest. CLINICAL INDICATION:Female, 78 years old with history of PreOp Cardiac Surgery; FINDINGS: Lungs/Pleura: There is no evidence of pleural effusion, focal consolidation, or pneumothorax. Pulmonary vascularity: Unremarkable. Heart/mediastinum: Cardiomediastinal silhouette is unremarkable. Musculoskeletal: No acute osseous pathology. IMPRESSION: Chronic changes without acute pulmonary process. No significant change from prior.
[2023-04-03 13:32] LABS: Appearance,Urine Clear (Clear); Bilirubin,Urine Negative (Negative); Blood,Urine Negative (Negative); Color,Urine Light Yellow; Glucose,Urine (UA) Negative (Negative); Ketones,Urine Negative (Negative); Leukocyte Esterase,Urine Large (Negative); Mucus,Urine Rare /hpf; Nitrite,Urine Negative (Negative); Protein,Urine 1+ (Negative); RBC,Urine 2 /hpf (0-5); Specific Gravity,Urine 1.022 (1.001-1.035); Squamous Epithelial Cell,Urine 9 /hpf (0-4); Urobilinogen,Urine <2.0 mg/dL (<2.0); WBC,Urine 5 /hpf (0-5)
[2023-04-03 13:35] LABS: ALT 21 U/L (4-34); AST 33 U/L (14-36); African American GFR (CKD) 21 (>60 ml/min/1.73 sqM); Albumin 3.3 g/dL (3.5-5.0); Alkaline Phosphatase 70 U/L (38-126); Anion Gap 10 mmol/L; Blood Urea Nitrogen 37 mg/dL (7-17); Calcium 7.9 mg/dL (8.4-10.2); Carbon Dioxide 22 mmol/L (22-30); Chloride 102 mmol/L (98-107); Glucose 103 mg/dL (74-99); Magnesium 2.1 mg/dL (1.6-2.3); Non-African American GFR(CKD) 18 (>60 ml/min/1.73 sqM); Potassium 4.3 mmol/L (3.5-5.1); Sodium 134 mmol/L (137-145); Total Bilirubin 0.4 mg/dL (0.2-1.3); Total Protein 6.2 g/dL (6.3-8.2)
--- NOTE | 2023-04-03 13:35 | P.GSCN ---
History of Present Illness Consult date: 04/03/23 Reason for Consult: Coronary artery disease with left main disease Requesting physician: Donte Senior History of present illness: This is 78-year-old female patient who follows on an outpatient basis with Dr. Daniel Saul for her primary care. She also follows with Dr. Senior for her cardiology care and Dr. Mojica for her peritoneal dialysis management. She has a past medical history significant for hypertension, hyperlipidemia, coronary artery disease with previous PCI of the left circumflex coronary artery, history of carotid atherosclerosis with history of bilateral internal carotid artery stenosis of 70%, COPD, chronic kidney disease maintained on peritoneal dialysis, osteoarthritis, history of iron deficiency anemia, chronic systolic heart failure with an ejection fraction of 45-50%, gastroesophageal reflux disease, history of cervical cancer, degenerative joint disease, history of anxiety and panic disorder, and remote history of nicotine dependence, quit smoking 2 years ago. Recently, the patient has been experiencing some progressive shortness of breath concerning for severe underlying coronary artery disease. She denies any recent fever, chills, nausea, vomiting, diarrhea, constipation, headache, peripheral edema, chest pain/chest pressure, lightheadedness, palpitations, presyncope or syncope. On 04/12/2022 the patient underwent a nuclear Lexiscan Cardiolite stress test which showed abnormal myocardial perfusion imaging with evidence of reversible defect of moderate size and moderate intensity involving the inferolateral segment of the LV with an impaired LV function with an ejec tion fraction of around 48%. Also in March 2022 the patient underwent a trans- thoracic 2-D echocardiogram which showed a normal left ventricular size and systolic function with an ejection fraction of 55%, mild left ventricular hypertrophy, grade 2 diastolic dysfunction, mild to moderate mitral valve regurgitation, mild mitral annular calcification, focal calcification of the left and non-coronary cusps, trace aortic valve regurgitation, mild aortic stenosis, valve area of 1.40 cm, peak gradient of 16 mmHg, mean gradient 8 mmHg, mild to moderate tricuspid valve regurgitation and mild pulmonic valve regurgitation. Subsequently, due to the patient's progressive shortness of breath she underwent a cardiac catheterization today performed by Dr. Senior which showed a heavily calcified left main, with a 40-50% stenosis, iFR of the left main showed to be ischemic at 0.88, the left circumflex with previous stent with mild to moderate disease just proximal to the stented segment, the obtuse m arginal #1 coronary artery has a 60-70% stenosis, and it also demonstrated a heavily calcified right coronary artery with a mid RCA showing an intermediate lesion in the range of 60% stenosis with an iFR that came in to be nonischemic at 0.9 to. Due to the findings on the cardiac catheterization a consult was placed to Dr. Suly Sanchez from cardiothoracic surgery for further evaluation and treatment recommendations including myocardial revascularization surgery. Review of Systems A 14 point review of systems was completed and was negative except as mentioned in the HPI. Past Medical History Past Medical History: Blood Disorder, Coronary Artery Disease (CAD), Cancer, COPD, Dialysis, GERD/Reflux, Hyperlipidemia, Hypertension, Osteoarthritis (OA), Renal Disease (On peritoneal dialysis) Additional Past Medical History / Comment(s): HX CERVICAL CA. murmur. IRON DEFICIENCY ANEMIA. peritoneal dialysis- nightly at home. SOB with exertion History of Any Multi-Drug Resistant Organisms: None Reported Past Surgical History: Heart Catheterization With Stent Additional Past Surgical History / Comment(s): TOTAL RT KNEE. Left knee surgery, COLONOSCOPY. may 2019 heart cath with stent, cataracts with lens, para tibial dialysis catheter placement Past Anesthesia/Blood Transfusion Reactions: No Reported Reaction Date of Last Stent Placement:: 05/2019 Past Psychological History: Anxiety, Panic Disorder Smoking Status: Former smoker (Quit smoking 2 years ago) Past Alcohol Use History: None Reported Past Drug Use History: None Reported - Past Family History Mother Family Medical History: Coronary Artery Disease (CAD), CVA/TIA Father Family Medical History: Coronary Artery Disease (CAD) Medications and Allergies Home Medications Medication Instructions Recorded Confirmed Type Metoprolol Succinate [Toprol Xl] 50 mg PO BID 03/11/19 04/03/23 History Aspirin EC [Ecotrin Low Dose] 81 mg PO DAILY 08/05/19 04/03/23 History Rosuvastatin [Crestor] 20 mg PO DAILY 08/05/19 04/03/23 History Losartan Potassium [Cozaar] 25 mg PO BID 09/20/20 04/03/23 History Esomeprazole Magnesium [NexIUM] 20 mg PO DAILY 10/13/20 04/03/23 History Magnesium Oxide [Mag-Ox] 400 mg PO BID 10/11/21 04/03/23 History Calcium Acetate [PhosLo] 1,334 mg PO HS 03/06/22 04/03/23 History Calcium Acetate [PhosLo] 2,001 mg PO DAILY 03/06/22 04/03/23 History Torsemide [Demadex] 20 mg PO BID 03/06/22 04/03/23 History amLODIPine 10 mg PO DAILY 03/06/22 04/03/23 History Zinc Sulfate [Orazinc] 220 mg PO DAILY #30 cap 03/08/22 04/03/23 Rx Unk Renavite 1 tab PO DAILY 03/27/23 04/03/23 History Venlafaxine HCl [Effexor] 50 mg PO Q48H 03/27/23 04/03/23 History Allergies Allergy/AdvReac Type Severity Reaction Status Date / Time No Known Allergies Allergy Verified 03/27/23 08:41 Surgical - Exam Vital Signs Temp Pulse Resp BP Pulse Ox 98.4 F 62 16 139/68 98 04/03/23 06:54 04/03/23 06:54 04/03/23 06:54 04/03/23 06:54 04/03/23 06:54 - General well developed, well nourished, no distress, no pain, chronically ill, obese - Eyes PERRL, normal ocular movement, no pale, no icteric - ENT normal pinna, normal nares, normal mucosa, no hearing loss, no congestion - Neck Neck is supple, no lymphadenopathy, positive soft bruits bilateral. no masses, trachea midline, no venous distension - Respiratory Respirations are symmetrical and nonlabored. Oxygen saturation's are 98% on room air. Lungs sounds essentially clear throughout. No wheezes, rhonchi or crackles. - Cardiovascular Regular rhythm and rate. S1 and S2 present, negative for S3 or gallop. Soft systolic murmur 2/6. - Abdomen Abdomen is soft, nontender and nondistended. Active bowel sounds present in all 4 abdominal quadrants. No guarding or rigidity. No organomegaly appreciated. Peritoneal dialysis catheter to her mid lower abdominal quadrant suprapubic area. - Genitourinary Peritoneal dialysis managed by patient. Does produce urine and voids 3 times a day. - Rectum Deferred - Integumentary Skin is warm and dry. No clubbing or cyanosis is present. no rash, no growths, no abnormal pigmentation - Neurologic No focal deficits. - Musculoskeletal Moves all 4 extremities with equal strength bilaterally. - Psychiatric oriented to time, oriented to person, oriented to place, speech is normal, memory intact Assessment and Plan Assessment: Coronary artery disease with history of previous PCI to the left circumflex coronary artery History of carotid atherosclerosis with history of bilateral internal carotid stenosis of 70% Chronic kidney disease maintained on peritoneal dialysis History of hypertension Hyperlipidemia COPD History of iron deficiency anemia Chronic systolic heart failure with an ejection fraction of 45-50% GERD History of cervical cancer Degenerative joint disease History of anxiety History of panic disorder Remote history of nicotine dependence quit smoking 2 years ago Plan: The patient was seen and examined at her bedside in the extended stay unit. Her chart and diagnostics were reviewed. The patient was seen and examined with Dr. Suly Sanchez from cardiothoracic surgery. Dr. Sanchez reviewed the findings on the cardiac catheterization films, discussed treatment options including myocardial revascularization surgery. Preoperative testing and preoperative teaching has been initiated. The patient will be scheduled to see Dr. Sanchez as an outpatient once the preoperative testing has been obtained. Once the pr eoperative testing has been completed an STS risk score will be calculated and discussed with the patient with more recommendations to follow. We will obtain a transthoracic 2-D echocardiogram as her last 2-D echocardiogram was 1 year ago. Continue to maximize medical therapy. The patient has been scheduled to see Dr. Suly Sanchez in the office on 04/20/2023 at 10:30 AM, this was discussed with the patient and her daughter Ramin present at her bedside. Medical management and other comorbidities per primary care and cardiology service. Thank you Dr. Senior for this consult and we look forward to working with you in the care of this patient. I have personally seen and examined the patient, performed the documentation and the assessment and plan as written. 30 minutes spent on the visit . Damaso RAMAN
[2023-04-03 17:01] LABS: Hepatitis A Antibody IgM Nonreactive; Hepatitis B Core IgM Nonreactive; Hepatitis B Surface Antigen Nonreactive; Hepatitis C IgG Antibody Nonreactive
[2023-04-03 20:52] LABS: LDL Cholesterol,Calculated 59.3 mg/dL (0.0-131.0)
== END 2023-04-03 14:17 | disposition home or self-care (01) ==
LOC: CATHCVL 06:16
PROVIDERS: ATTEND Internal Medicine Interventional Cardiology
DX: I25.10 Atherosclerotic heart disease of native coronary artery without angina pectoris (principal); E78.5 Hyperlipidemia, unspecified; J44.9 Chronic obstructive pulmonary disease, unspecified; K21.9 Gastro-esophageal reflux disease without esophagitis; D50.9 Iron deficiency anemia, unspecified; I12.9 Hypertensive chronic kidney disease with stage 1 through stage 4 chronic kidney disease, or unspecified chronic kidney disease; N18.9 Chronic kidney disease, unspecified; M19.90 Unspecified osteoarthritis, unspecified site; Z95.5 Presence of coronary angioplasty implant and graft; Z87.891 Personal history of nicotine dependence; Z79.899 Other long term (current) drug therapy; Z98.890 Other specified postprocedural states
CPT/HCPCS: 94150; 93306; 93458; 93799; 76937; 80061; 80053; 80074; 84443; 83735; 81001; 87070; 83036; 71046; 93970; 93880; 71250; C1887 ×2; C1769 ×2; C1894; J2250; J2001; J3010; J1644; Q9967

== ENCOUNTER 2023-04-19 11:37 | Inpatient (IN) | payer MEDICARE, BC ==
[2023-04-17 15:49] VITALS: BMI 28.7
[~2023-04-19 11:37] MED LIST changes: -SODIUM CHLORIDE 0.9% 1,000 ML in EMPTY BAG 1 BAG IV SCH
[2023-04-19] MEDS ORDERED: SODIUM CHLORIDE 0.9% 1,000 ML IV ONE (12:17)
[2023-04-19 12:34] LABS: Basophils % (A) 0 %; Eosinophils # (A) 0.4 k/uL (0-0.7); Eosinophils % (A) 4 %; HCT 32.5 % (34.0-46.0); HGB 11.2 gm/dL (11.4-16.0); Lymphocytes # (A) 1.4 k/uL (1.0-4.8); Lymphocytes % (A) 14 %; MCH 33.2 pg (25.0-35.0); MCHC 34.6 g/dL (31.0-37.0); Mean Platelet Volume 7.7; Monocytes # (A) 0.4 k/uL (0-1.0); Monocytes % (A) 4 %; Neutrophils # (A) 7.5 k/uL (1.3-7.7); Neutrophils % (A) 76 %; Platelet Count 346 k/uL (150-450); RBC 3.39 m/uL (3.80-5.40); RDW 12.9 % (11.5-15.5); WBC 9.9 k/uL (3.8-10.6)
[2023-04-19 12:53] LABS: African American GFR (CKD) 17 (>60 ml/min/1.73 sqM); Anion Gap 7 mmol/L; Blood Urea Nitrogen 37 mg/dL (7-17); Calcium 8.3 mg/dL (8.4-10.2); Carbon Dioxide 27 mmol/L (22-30); Chloride 100 mmol/L (98-107); Glucose 92 mg/dL (74-99); Non-African American GFR(CKD) 15 (>60 ml/min/1.73 sqM); Sodium 134 mmol/L (137-145)
[2023-04-19] MEDS ORDERED: HEPARIN SODIUM 1,000 UN/ML (10ML VL) ONE (13:52)
[2023-04-19] MEDS ORDERED: LIDOCAINE 1% INJ 10MG/ML (20 ML MDV) ONE ×2 (13:52→14:22)
[2023-04-19] MEDS ORDERED: MIDAZOLAM 2 MG/2 ML VIAL IVP ONE (14:13)
[2023-04-19] MEDS ORDERED: LIDOCAINE 1% INJ 10MG/ML (30 ML VIAL-PF) SQ ONE ×2 (14:14)
[2023-04-19] MEDS ORDERED: fentaNYL (PF) 50 MCG/ML 2 ML AMP ONE ×2 (14:17→15:50)
[2023-04-19] MEDS ORDERED: fentaNYL (PF) 50 MCG/1 ML VIAL IVP ONE ×4 (14:20→15:51)
[2023-04-19] MEDS ORDERED: LIDOCAINE 1% INJ 10MG/ML (20 ML MDV) SQ ONE (14:23)
[2023-04-19] MEDS ORDERED: HYDROmorphone 0.5 MG/0.5 ML SYRINGE IVP ONE ×2 (14:23→15:28)
[2023-04-19] MEDS ORDERED: CLOPIDOGREL 75 MG TAB ONE (14:31)
[2023-04-19] MEDS ORDERED: HEPARIN SODIUM 1,000 UN/ML (10ML VL) IV ONE ×2 (14:34→14:35)
[2023-04-19] MEDS ORDERED: CLOPIDOGREL 75 MG TAB PO ONE (14:35)
[2023-04-19] MEDS ORDERED: IOPAMIDOL-370 100ML BTL INJ ONE (15:07)
[2023-04-19] MEDS ORDERED: FUROSEMIDE 10 MG/ML 4 ML VIAL ONE (15:19)
[2023-04-19] MEDS ORDERED: FUROSEMIDE 10 MG/ML 4 ML VIAL IV ONE (15:20)
[2023-04-19] MEDS ORDERED: MORPHINE SULFATE 4 MG/ML SYRINGE ONE (15:24)
[2023-04-19] MEDS ORDERED: MORPHINE SULFATE 4 MG/ML SYRINGE IVP ONE ×2 (15:26)
[2023-04-19] MEDS ORDERED: IOPAMIDOL-370 125ML BTL INJ ONE (15:34)
[2023-04-19] MEDS ORDERED: ZOLPIDEM 5 MG TAB PO PRN (16:12)
[2023-04-19] MEDS ORDERED: RX INFO: IV CONTRAST WAS GIVEN 1 EACH MISC MISCELLANE PRN (16:12)
[2023-04-19] MEDS ORDERED: NITROGLYCERIN SL TABS 0.4 MG TAB SUBLINGUAL PRN (16:12)
[2023-04-19] MEDS ORDERED: MAG HYDROX/AL HYDROX/SIMETH 30 ML CUP PO PRN (16:12)
[2023-04-19] MEDS ORDERED: ATROPINE SULFATE 0.1 MG/ML 10ML SYRINGE IV PRN (16:12)
[2023-04-19] MEDS ORDERED: SODIUM CHLORIDE 0.9% 1,000 ML in EMPTY BAG 1 BAG IV SCH (16:15)
[2023-04-19] MEDS ORDERED: VENLAFAXINE HCL 50 MG TAB PO SCH (16:15)
[2023-04-19 16:43] LABS: Glucose,Whole Blood 110 mg/dL (70-110)
[2023-04-19] MEDS ORDERED: NALOXONE 0.4 MG/ML 1 ML VIAL IV PRN (16:47)
[2023-04-19] MEDS: SODIUM CHLORIDE 0.9% 1,000 ML in EMPTY BAG 1 BAG IV SCH (16:52)
--- NOTE | 2023-04-19 17:58 | P.PCN ---
Date of Procedure: 04/19/23 Operative Findings: Percutaneous coronary intervention Performing physician Donte Senior MD Procedure performed 1. Successful stenting of the left main coronary artery using 4.0 x 12 mm Xience EPIFANIO which was postdilated using 5 mm noncompliant balloon with an excellent angiographic results and reduction of stenosis from 70% with 0% 2. Adjunctive use of intravascular ultrasound and lithotripsy balloon 3. Adjunctive placement of Impella CP in the LV 4. Right lower extremity angiogram and selective bilateral common femoral arteries angiogram 5. Successful balloon angioplasty of the right common femoral artery 6. Ultrasound guided accessd right common femoral artery Indication This is a 78-year-old female patient who was diagnosed recently with severe symptomatic left main disease. She was seen by the cardiothoracic surgery team and she was deemed to be high risk for open heart surgery be she does have multiple risk factors including diabetes and hypertension and dyslipidemia and end-stage renal disease currently on dialysis and peripheral carotid disease and lower extremities PAD. Approach Right and left common femoral arteries Complications None Level of sedation Moderate with sedation length of 88 minutes Procedure description After obtaining an informed consent the patient was brought to the cardiac State Trooper. The right common femoral artery was cannulated using micropuncture technique under ultrasound guidance and a micropuncture wire passed easily than I placed a 6 Trinidadian 11 cm sheath at the right common femoral artery. Please note that the right common femoral artery and because it was calcified by ultrasound a very dilated using 5 Trinidadian and 6 Trinidadian and 7 Trinidadian dilator for a plate 60 Trinidadian sheath. Subsequently I did preclose the right common femoral artery using Perclose device 2. After that they place an 8 Trinidadian sheath 11 cm at the right common femoral artery overall 3 5 wire. After that I did exchange my 035 wire into an 035 stiff wire using a pigtail catheter. Subsequently I predilated the right common femoral artery using 10 Trinidadian dilator before I place a 14 Trinidadian 23 cm sheath advanced over the stiff all 3 5 wire to the right iliac artery under fluoroscopy guidance. Subsequently the dilator was removed and the sheath was flushed. Anticoagulation at that point was initiated using heparin with continuous ACT monitoring. After that I did advance and all 3 5 regular wire with a pigtail catheter to the aortic root were I did class the aor tic valve that point. I did exchange my 035 wire into 018 wire using the pigtail catheter. Subsequently the Impella CP was advanced over the 018 wire to the LV where it was positioned under fluoroscopy guidance and subsequently it was turned on. After that and after anticoagulation was initiated I accessed the 14 Trinidadian sheath using micropuncture catheter 10:00. After that I did advance and all 3 5 wire and then I did the place a 23 cm 6 Trinidadian sheath overall 3 5 wire and the sheath was advanced all the way. Subsequently I did engage the left main using JL4 with a short tip guiding catheter. I attempted wiring the LAD using running through wire that was extremely hard because the takeoff of the LAD was extremely tortuous and almost taking the 90 angle. I was able to wire the LAD using a whisper wire. Subsequently I was able to advance the run-through wire down with a whisper wire. I kept "wired and. After that I did endovascular ultrasound of the left main and that showed a very calcified left main with more than 270 arch of calcium. After that I did decide to do a shockwave follow-up. I inflated 3 oh by 12 mm balloon the ostial and proximal left main multiple times where the balloon was inflated in the 4 marquis breath or the shock after that I did inflated to 6 marquis. That was performed 3. Then I decided to move forward with a stent. I did advance a 4.0 x 12 mm stent where the stent was positioned under fluoroscopy guidance after the roxy wire was pulled out. The stent was deployed and there 16 marquis for 20 seconds. Angiogram was performed after and at that point I decided to post dilate. I post dilated the stent using 5 mm x 12 mm noncompliant balloon which was inflated under 14 marquis and subsequently I flared the ostium where the balloon was inflated at 16 marquis. Final angiogram showed good angiographic results. Subsequently the wire and guide were withdrawn out. The 6 Trinidadian sheath was pulled out. Subsequently approved the 14 Trinidadian sheath and deployed a Perclose 2. There was significant bleeding. At that point I decided to place an 8 Trinidadian Angio-Seal and with that I was able to achieve hemostasis. I could not feel good right femoral pulse and I could not appreciate any valvular signal in the anterior tibial or posterior tibial artery. Because of that I decided to access the left groin and a place initially 11 cm 6 Trinidadian sheath at the left common femoral artery and I went up and over using permacatheter to advance 55 cm 60 Trinidadian sheath up and over to the right external iliac artery. An angiogram was performed and showed occluded right common femoral artery. I was able to wire it using the 5 glide wire. Subsequently a balloon that using 6 mm x 40 mm balloon which was inflated 2. An angiogram was performed. Excellent angiographic results with good flow in the SFA and the profunda and the flow all the way to the foot. There was only one vessel runoff below the knee. There was severe right SFA disease. Finally I did selective left common femoral artery angiogram before the procedure was completed with no complication Postprocedure management 1. Dual antiplatelet therapy 2. Aggressive cholesterol control 3. Risk factors modification 4. ICU monitoring
[2023-04-19] MEDS: LOSARTAN 25 MG TAB PO SCH (20:51)
[2023-04-19] MEDS: MAGNESIUM OXIDE 400 MG TAB PO SCH (20:51)
[2023-04-19] MEDS: TORSEMIDE 20 MG TAB PO SCH (20:51)
[2023-04-19] MEDS: METOPROLOL TARTRATE 50 MG TAB PO SCH (20:51)
[2023-04-19] MEDS: DIALYSIS (PERIT 1.5%) 2,000 ML 30 G/2,000 ML BAG INTRAPERIT SCH ×2 (20:52→21:40)
[2023-04-19] MEDS ORDERED: CALCIUM ACETATE 667 MG TAB PO SCH (21:00)
[2023-04-20 04:32] LABS: Basophils % (A) 0 %; Eosinophils # (A) 0.1 k/uL (0-0.7); Eosinophils % (A) 1 %; HCT 29.3 % (34.0-46.0); HGB 9.9 gm/dL (11.4-16.0); Lymphocytes # (A) 0.9 k/uL (1.0-4.8); Lymphocytes % (A) 9 %; MCH 33.1 pg (25.0-35.0); MCHC 33.8 g/dL (31.0-37.0); MCV 97.9 fL (80.0-100.0); Mean Platelet Volume 7.6; Monocytes # (A) 0.4 k/uL (0-1.0); Monocytes % (A) 4 %; Neutrophils # (A) 7.7 k/uL (1.3-7.7); Neutrophils % (A) 84 %; Platelet Count 306 k/uL (150-450); RBC 2.99 m/uL (3.80-5.40); RDW 12.7 % (11.5-15.5); WBC 9.1 k/uL (3.8-10.6)
[2023-04-20 04:42] LABS: African American GFR (CKD) 17 (>60 ml/min/1.73 sqM); Anion Gap 8 mmol/L; Blood Urea Nitrogen 36 mg/dL (7-17); Calcium 8.2 mg/dL (8.4-10.2); Carbon Dioxide 25 mmol/L (22-30); Chloride 99 mmol/L (98-107); Glucose 101 mg/dL (74-99); Non-African American GFR(CKD) 15 (>60 ml/min/1.73 sqM); Potassium 4.8 mmol/L (3.5-5.1); Sodium 132 mmol/L (137-145)
[2023-04-20] MEDS: SODIUM CHLORIDE 0.9% 1,000 ML in EMPTY BAG 1 BAG IV SCH ×2 (05:04→08:52)
[2023-04-20] MEDS: DIALYSIS (PERIT 1.5%) 2,000 ML 30 G/2,000 ML BAG INTRAPERIT SCH ×2 (05:05→08:44)
--- NOTE | 2023-04-20 08:15 | P.DS ---
Providers Date of admission: 04/19/23 16:51 Attending physician: Donte Senior Consults: 04/19/23 16:13 Consult Physician Routine Consulting Provider: [facility] Consult Reason/Comments: Post Interventional Patient Do you want consulting provider notified?: Already Contacted 04/19/23 17:58 Consult Physician Routine Consulting Provider: Rober Mojica Consult Reason/Comments: PD Do you want consulting provider notified?: Yes Primary care physician: [facility] Course: The patient is a 78-year-old female patient who underwent yesterday successful stenting of unprotected left main coronary artery with adjunctive use of mechanical support. The procedure ended was good angiographic results but by the end after deploying the Perclose devices and when Angio-Seal the patient close her femoral artery and she was symptomatic with evidence of acute ischemia and no Doppler signal in the right foot. I did go up and over from the left groin to the right groin and I did an angiogram which revealed occluded right femoral artery which I ballooned it with good results at the end and good flow down all the way to the right foot documented by angiogram The patient was seen and evaluated this morning and she is asymptomatic and hemodynamically stable was a small left groin hematoma The patient is going to be discharged home on dual antiplatelet therapy along with statin. I'll follow-up with the patient next week in the office Plan - Discharge Summary Discharge Rx Participant: Yes New Discharge Prescriptions: New Clopidogrel [Plavix] 75 mg PO DAILY #90 tablet Continue Metoprolol Succinate [Toprol Xl] 50 mg PO BID Aspirin EC [Ecotrin Low Dose] 81 mg PO DAILY Rosuvastatin [Crestor] 20 mg PO DAILY Losartan Potassium [Cozaar] 25 mg PO BID Esomeprazole Magnesium [NexIUM] 20 mg PO DAILY Magnesium Oxide [Mag-Ox] 400 mg PO BID amLODIPine 10 mg PO DAILY Calcium Acetate [PhosLo] 1,334 mg PO HS Calcium Acetate [PhosLo] 2,001 mg PO DAILY Torsemide [Demadex] 20 mg PO BID Venlafaxine HCl [Effexor] 50 mg PO Q48H Unk Renavite 1 tab PO DAILY Discharge Medication List Metoprolol Succinate [Toprol Xl] 50 mg PO BID 03/11/19 [History] Aspirin EC [Ecotrin Low Dose] 81 mg PO DAILY 08/05/19 [History] Rosuvastatin [Crestor] 20 mg PO DAILY 08/05/19 [History] Losartan Potassium [Cozaar] 25 mg PO BID 09/20/20 [History] Esomeprazole Magnesium [NexIUM] 20 mg PO DAILY 10/13/20 [History] Magnesium Oxide [Mag-Ox] 400 mg PO BID 10/11/21 [History] Calcium Acetate [PhosLo] 1,334 mg PO HS 03/06/22 [History] Calcium Acetate [PhosLo] 2,001 mg PO DAILY 03/06/22 [History] Torsemide [Demadex] 20 mg PO BID 03/06/22 [History] amLODIPine 10 mg PO DAILY 03/06/22 [History] Unk Renavite 1 tab PO DAILY 03/27/23 [History] Venlafaxine HCl [Effexor] 50 mg PO Q48H 03/27/23 [History] Clopidogrel [Plavix] 75 mg PO DAILY #90 tablet 04/20/23 [Rx] Follow up Appointment(s)/Referral(s): Donte Senior MD [STAFF PHYSICIAN] - 1 Week (APPOINTMENT MADE ON March @ 4:15PM ) Patient Instructions/Handouts: Moderate Sedation (DC), Cardiac Rehabilitation (ED), Coronary Intravascular Stent Placement (DC), After Radial Heart Catheterization (GEN) Activity/Diet/Wound Care/Special Instructions: *NO LIFTING, PUSHING, PULLING ANYTHING OVER 5 POUNDS FOR 5 DAYS *NO DRIVING FOR 3 DAYS *YOU CAN REMOVE YOUR DRESSING TOMORROW AND YOU CAN SHOWER AT THAT TIME. DO NOT SUBMERSE YOUR PUNCTURE SITE IN WATER FOR A FEW DAYS TO PREVENT INFECTION - SO NO TUB BATHS, POOLS, HOT TUBS, DISHES...ETC *ANY SIGNS OF BLEEDING (HARDNESS, SWELLING, OR EXCESSIVE BRUISING) HOLD DIRECT PRESSURE ON YOUR PUNCTURE SITE AND COME TO THE NEAREST EMERGENCY ROOM TO GET YOUR PUNCTURE SITE LOOKED AT - DO NOT DRIVE YOURSELF! EITHER CALL EMS OR HAVE SOMEONE DRIVE YOU!
[2023-04-20 08:23] VITALS: TEMP 97.9
[2023-04-20] MEDS: MAGNESIUM OXIDE 400 MG TAB PO SCH (08:46)
[2023-04-20] MEDS: LOSARTAN 25 MG TAB PO SCH (08:47)
[2023-04-20] MEDS: TORSEMIDE 20 MG TAB PO SCH (08:47)
[2023-04-20] MEDS: METOPROLOL TARTRATE 50 MG TAB PO SCH (08:52)
[2023-04-20] MEDS ORDERED: CALCIUM ACETATE 667 MG TAB PO SCH (09:00)
[2023-04-20] MEDS ORDERED: CLOPIDOGREL 75 MG TAB PO SCH (09:00)
[2023-04-20] MEDS ORDERED: PANTOPRAZOLE 40 MG TABLET PO SCH (09:00)
[2023-04-20] MEDS ORDERED: ASPIRIN 81 MG PO SCH (09:00)
[2023-04-20] MEDS ORDERED: [UNRECOGNIZED DRUG - OTHER] PO SCH (09:00)
[2023-04-20] MEDS ORDERED: ATORVASTATIN 40 MG TAB PO SCH (09:00)
[2023-04-20] MEDS ORDERED: amLODIPine 10 MG TAB PO SCH (09:00)
--- NOTE | 2023-04-20 10:34 | P.NPCON ---
History of Present Illness - Reason for Consult end stage renal disease - History of Present Illness Reason for consultation: End-stage renal disease History of present illness: Patient is a 78-year-old female seen in consultation for end-stage renal disease. She is maintained on peritoneal dialysis. Patient was diagnosed with severe symptomatic left main disease and underwent cardiac catheterization with stent placement on 04/19/2023. She also underwent balloon angioplasty of the right common femoral artery. She is currently sitting up in chair. Denies chest pain or shortness of breath. She makes good urine. No vomiting or diarrhea. No fever or chills. Hemodynamically stable. She is going home today. PD could not be an overnight as adapter was knocked available. Her potassium level is normal. No edema. Vital signs are stable. General: No acute distress. HEENT: Head exam is unremarkable. LUNGS: No audible rhonchi or wheezes. HEART: Rate and Rhythm are regular. ABDOMEN: Nontender. EXTREMITITES: No edema. Past Medical History Past Medical History: Blood Disorder, Coronary Artery Disease (CAD), Cancer, COPD, Dialysis, GERD/Reflux, Hyperlipidemia, Hypertension, Osteoarthritis (OA), Renal Disease Additional Past Medical History / Comment(s): HX CERVICAL CA. murmur. IRON DEFICIENCY ANEMIA. peritoneal dialysis- nightly at home. SOB with exertion History of Any Multi-Drug Resistant Organisms: None Reported Past Surgical History: Heart Catheterization, Heart Catheterization With Stent Additional Past Surgical History / Comment(s): TOTAL RT KNEE, Left knee surgery, COLONOSCOPY, cataracts with lens, peritoneal dialysis catheter placement Past Anesthesia/Blood Transfusion Reactions: No Reported Reaction Date of Last Stent Placement:: 04/19/2023 Past Psychological History: Anxiety, Panic Disorder Smoking Status: Former smoker Past Alcohol Use History: None Reported Additional Past Alcohol Use History / Comment(s): SMOKED SINCE AGE 15, 1 PPD quit 2020. Past Drug Use History: None Reported - Past Family History Mother Family Medical History: Coronary Artery Disease (CAD), CVA/TIA Father Family Medical History: Coronary Artery Disease (CAD) Medications and Allergies Home Medications Medication Instructions Recorded Confirmed Type Metoprolol Succinate [Toprol Xl] 50 mg PO BID 03/11/19 04/19/23 History Aspirin EC [Ecotrin Low Dose] 81 mg PO DAILY 08/05/19 04/19/23 History Rosuvastatin [Crestor] 20 mg PO DAILY 08/05/19 04/19/23 History Losartan Potassium [Cozaar] 25 mg PO BID 09/20/20 04/19/23 History Esomeprazole Magnesium [NexIUM] 20 mg PO DAILY 10/13/20 04/19/23 History Magnesium Oxide [Mag-Ox] 400 mg PO BID 10/11/21 04/19/23 History Calcium Acetate [PhosLo] 1,334 mg PO HS 03/06/22 04/19/23 History Calcium Acetate [PhosLo] 2,001 mg PO DAILY 03/06/22 04/19/23 History Torsemide [Demadex] 20 mg PO BID 03/06/22 04/19/23 History amLODIPine 10 mg PO DAILY 03/06/22 04/19/23 History Unk Renavite 1 tab PO DAILY 03/27/23 04/19/23 History Venlafaxine HCl [Effexor] 50 mg PO Q48H 03/27/23 04/19/23 History Clopidogrel [Plavix] 75 mg PO DAILY #90 tablet 04/20/23 Rx Allergies Allergy/AdvReac Type Severity Reaction Status Date / Time No Known Allergies Allergy Verified 04/19/23 12:06 Physical Exam Vitals: Vital Signs Temp Pulse Pulse Resp BP BP BP 04/20/23 10:00 62 19 129/52 04/20/23 09:00 74 13 146/62 04/20/23 08:00 97.9 F 73 10 L 126/64 04/20/23 07:00 70 11 L 154/70 04/20/23 06:00 71 15 146/64 04/20/23 05:00 77 14 139/68 04/20/23 04:00 97.2 F L 76 13 133/72 04/20/23 03:00 111 H 13 147/66 04/20/23 02:00 70 13 143/75 04/20/23 01:00 72 10 L 154/70 04/20/23 00:03 82 17 139/66 04/20/23 00:00 97.0 F L 69 12 122/57 04/19/23 23:00 71 27 H 126/60 04/19/23 22:45 62 12 126/60 04/19/23 22:30 63 12 124/73 04/19/23 22:15 64 11 L 124/73 04/19/23 22:00 67 12 148/62 04/19/23 21:45 64 6 L 148/62 04/19/23 21:30 68 10 L 132/93 04/19/23 21:15 66 11 L 132/93 04/19/23 21:00 71 16 120/73 04/19/23 20:45 65 14 120/73 04/19/23 20:30 96.0 F L 56 L 15 150/92 04/19/23 20:15 67 13 150/92 04/19/23 20:00 66 14 129/65 04/19/23 19:45 67 7 L 129/65 04/19/23 19:30 67 20 136/70 04/19/23 19:15 69 15 136/70 04/19/23 19:00 64 14 127/78 04/19/23 18:30 69 19 128/82 04/19/23 18:00 68 10 L 138/68 04/19/23 17:30 70 12 148/73 04/19/23 17:00 61 19 141/81 04/19/23 16:50 97.6 F 65 14 141/81 04/19/23 12:11 97.7 F 63 18 138/64 137/64 Pulse Ox 04/20/23 10:00 94 L 04/20/23 09:00 96 04/20/23 08:00 92 L 04/20/23 07:00 97 04/20/23 06:00 98 04/20/23 05:00 94 L 04/20/23 04:00 92 L 04/20/23 03:00 91 L 04/20/23 02:00 98 04/20/23 01:00 94 L 04/20/23 00:03 97 04/20/23 00:00 99 04/19/23 23:00 94 L 04/19/23 22:45 95 04/19/23 22:30 96 04/19/23 22:15 96 04/19/23 22:00 94 L 04/19/23 21:45 98 04/19/23 21:30 96 04/19/23 21:15 96 04/19/23 21:00 97 04/19/23 20:45 99 04/19/23 20:30 96 04/19/23 20:15 99 04/19/23 20:00 100 08/24/23 19:45 98 04/19/23 19:30 97 04/19/23 19:15 95 04/19/23 19:00 96 04/19/23 18:30 99 04/19/23 18:00 95 04/19/23 17:30 92 L 04/19/23 17:00 96 04/19/23 16:50 96 04/19/23 12:11 98 Intake and Output 04/19/23 04/20/23 04/20/23 22:59 06:59 14:59 Intake Total 385 240 200 Output Total 250 700 750 Balance 135 -460 -550 Intake: IV 385 Sodium Chloride 0.9% 1, 385 000 ml In Empty Bag 1 bag @ 75 mls/hr IV .[id number] [facility] Rx#:[id number] Oral 240 200 Output: Urine 250 700 750 Other: Voiding Method External Catheter External Catheter Bedside Commode # Voids 0 0 Weight 67.132 kg 72.8 kg Results - Lab Results Most recent lab results Calcium 8.2 mg/dL (8.4-10.2) L 04/20/23 04:03 04/20/23 04:03 04/20/23 04:03 Assessment and Plan Plan: Assessment: 1. End-stage renal disease maintained on peritoneal dialysis. 2. Coronary artery disease status post LAD stenting 04/19/2023. 3. Peripheral arterial disease status post right common femoral artery balloon angioplasty. 4. Hypertension with chronic kidney disease. 5. Chronic kidney disease mineral bone disease. Plan: Patient to resume PD today. Thank you for the consultation. I'll continue to follow the patient with you during her hospital stay.
[2023-04-20 11:07] VITALS: BP 126/82; PULSE 64; RESP 13
== END 2023-04-20 11:55 | disposition home or self-care (01) | DRG 215 ==
LOC: CATHCVL 11:37 → 2SICU 16:07 → CATHCVL 16:51 → 2SICU 16:51
PROVIDERS: ADMIT Internal Medicine Interventional Cardiology; ATTEND Internal Medicine Interventional Cardiology
PROC: 047K3ZZ Dilation of Right Femoral Artery, Percutaneous Approach (ICD-10-PCS; 2023-04-19)
PROC: B240ZZ3 Ultrasonography of Single Coronary Artery, Intravascular (ICD-10-PCS; 2023-04-19)
PROC: B41G1ZZ Fluoroscopy of Left Lower Extremity Arteries using Low Osmolar Contrast (ICD-10-PCS; 2023-04-19)
PROC: B41F1ZZ Fluoroscopy of Right Lower Extremity Arteries using Low Osmolar Contrast (ICD-10-PCS; 2023-04-19)
PROC: 02HA3RZ Insertion of Short-term External Heart Assist System into Heart, Percutaneous Approach (ICD-10-PCS; principal; 2023-04-19 13:30)
PROC: 027034Z Dilation of Coronary Artery, One Artery with Drug-eluting Intraluminal Device, Percutaneous Approach (ICD-10-PCS; 2023-04-19 13:30)
PROC: 02F03ZZ Fragmentation in Coronary Artery, One Artery, Percutaneous Approach (ICD-10-PCS; 2023-04-19 13:30)
PROC: 5A0221D Assistance with Cardiac Output using Impeller Pump, Continuous (ICD-10-PCS; 2023-04-19 13:30)
DX: I25.10 Atherosclerotic heart disease of native coronary artery without angina pectoris (principal); N18.6 End stage renal disease; I12.0 Hypertensive chronic kidney disease with stage 5 chronic kidney disease or end stage renal disease; E11.22 Type 2 diabetes mellitus with diabetic chronic kidney disease; J44.9 Chronic obstructive pulmonary disease, unspecified; Z99.2 Dependence on renal dialysis; I70.201 Unspecified atherosclerosis of native arteries of extremities, right leg; E78.5 Hyperlipidemia, unspecified; S30.1XXA Contusion of abdominal wall, initial encounter; K21.9 Gastro-esophageal reflux disease without esophagitis; M19.90 Unspecified osteoarthritis, unspecified site; M89.8X9 Other specified disorders of bone, unspecified site; Z96.651 Presence of right artificial knee joint; Z85.41 Personal history of malignant neoplasm of cervix uteri; Z87.891 Personal history of nicotine dependence; Z82.49 Family history of ischemic heart disease and other diseases of the circulatory system; Z79.899 Other long term (current) drug therapy; Z79.82 Long term (current) use of aspirin; Z79.02 Long term (current) use of antithrombotics/antiplatelets
CPT/HCPCS: 80048; 85025

== ENCOUNTER → 2023-10-25 | Day surgery (SDC) | payer MEDICARE, BC ==
[~2023-10-25] MED LIST changes: +ASPIRIN 325 MG TAB PO PRN; -ASPIRIN 325 MG TAB PO STA; -ATORVASTATIN 80 MG TAB PO STA; +LIDOCAINE 1% INJ 10MG/ML (20 ML MDV) ONE; +NALOXONE 0.4 MG/ML 1 ML VIAL IVP PRN; -NITROGLYCERIN SL TABS 0.4 MG TAB SUBLINGUAL PRN; +SODIUM CHLORIDE 0.9% 1,000 ML in EMPTY BAG 1 BAG IV ONE; +SODIUM CHLORIDE 0.9% 1,000 ML in EMPTY BAG 1 BAG IV SCH; +VERAPAMIL 2.5 MG/ML 2 ML AMP ONE; +ZOLPIDEM 5 MG TAB PO PRN; +fentaNYL (PF) 50 MCG/ML 2 ML AMP ONE; +hydrALAZINE HCL 20 MG/ML 1 ML VIAL ONE
[2023-10-25] MEDS: SODIUM CHLORIDE 0.9% 1,000 ML IV ONE (07:06)
[2023-10-25 07:27] LABS: Basophils # (A) 0.1 k/uL (0-0.2); Basophils % (A) 1 %; Eosinophils # (A) 0.4 k/uL (0-0.7); Eosinophils % (A) 5 %; HCT 31.3 % (34.0-46.0); HGB 11.2 gm/dL (11.4-16.0); Lymphocytes # (A) 1.4 k/uL (1.0-4.8); Lymphocytes % (A) 16 %; MCH 34.9 pg (25.0-35.0); MCHC 35.9 g/dL (31.0-37.0); MCV 97.3 fL (80.0-100.0); Mean Platelet Volume 7.9; Monocytes # (A) 0.5 k/uL (0-1.0); Monocytes % (A) 5 %; Neutrophils # (A) 6.4 k/uL (1.3-7.7); Neutrophils % (A) 71 %; Platelet Count 303 k/uL (150-450); RBC 3.22 m/uL (3.80-5.40); RDW 12.8 % (11.5-15.5)
[2023-10-25 07:46] VITALS: RESP 16; TEMP 98.1
[2023-10-25 07:50] LABS: African American GFR (CKD) 20 (>60 ml/min/1.73 sqM); Anion Gap 9 mmol/L; Blood Urea Nitrogen 37 mg/dL (7-17); Calcium 8.2 mg/dL (8.4-10.2); Carbon Dioxide 26 mmol/L (22-30); Chloride 102 mmol/L (98-107); Glucose 93 mg/dL (74-99); Non-African American GFR(CKD) 18 (>60 ml/min/1.73 sqM); Potassium 3.9 mmol/L (3.5-5.1); Sodium 137 mmol/L (137-145)
[2023-10-25] MEDS: MIDAZOLAM 2 MG/2 ML VIAL IVP ONE (09:43)
[2023-10-25] MEDS: LIDOCAINE 1% INJ 10MG/ML (20 ML MDV) SQ ONE ×2 (09:46→09:47)
[2023-10-25] MEDS: fentaNYL (PF) 50 MCG/ML 2 ML AMP IVP ONE (09:48)
[2023-10-25] MEDS: hydrALAZINE HCL 20 MG/ML 1 ML VIAL IVP ONE (09:57)
--- NOTE | 2023-10-25 10:09 | P.PCN ---
Date of Procedure: 10/25/23 Operative Findings: AN ABDOMINAL AORTOGRAM AND BILATERAL LOWER EXTREMITIES RUNOFF PERFORMING PHYSICIAN: Donte Senior MD PROCEDURE PERFORMED: 1. An abdominal aortogram 2. Bilateral lower extremities runoff 3. Ultrasound-guided access of the right common femoral artery INDICATION: Bilateral lower extremities intermittently the patient in this 78-year-old female patient who underwent an arterial duplex study and that came in to be abnormal COMPLICATION: None LEVEL OF SEDATION: Moderate was sedation length of 13 minutes APPROACH: Right common femoral artery PROCEDURE DESCRIPTION: After obtaining informed consent and explaining the procedure benefits, risks, and complications, the patient was brought to the cardiac warehouse general laborer. The right groin was prepped and draped in sterile fashion. The right common femoral artery was cannulated using micropuncture technique, under ultrasound guidance. A micropuncture wire was advanced, and the micropuncture sheath was advanced over the wire, then the micropuncture sheath was exchanged over an 0.35 wire into a 5-Kiswahili sheath dilator assembly then the wire and dilator were removed and sheath was flushed. We did an abdominal aortogram and bilateral lower extremities runoff using 5- Kiswahili pigtail catheter using a power injection. The catheter was initially placed at the level of the renal arteries, and it was pulled into above the bifurcation of the aorta into right and left common iliac arteries. Please note that the procedure was performed using CO2 The procedure was completed and there was no complications. SELECTIVE PERIPHERAL ANGIOGRAM: The abdominal aorta: Calcified with mild to moderate disease The common iliac arteries: Calcified with mild to moderate disease The external iliac arteries: Appeared to be patent The internal iliac arteries: Appears to be patent The common femoral arteries: Appear to be patent Superficial femoral arteries: Severe bilateral SFA disease Popliteal arteries: Appears to have mild disease only Below the knees: Poorly visualized CONCLUSION: Severe bilateral SFA disease POSTPROCEDURE MANAGEMENT: SERVICE SECRETARY
[2023-10-25 13:17] VITALS: PULSE 69
[2023-10-25 17:02] VITALS: BP 127/67
== END ==
LOC: CATHCVL 06:37
PROVIDERS: ATTEND Internal Medicine Interventional Cardiology
DX: I70.213 Atherosclerosis of native arteries of extremities with intermittent claudication, bilateral legs (principal); I10 Essential (primary) hypertension; E78.5 Hyperlipidemia, unspecified; I25.10 Atherosclerotic heart disease of native coronary artery without angina pectoris; F17.210 Nicotine dependence, cigarettes, uncomplicated; I65.23 Occlusion and stenosis of bilateral carotid arteries; I38 Endocarditis, valve unspecified; Z82.49 Family history of ischemic heart disease and other diseases of the circulatory system; Z79.82 Long term (current) use of aspirin; Z79.899 Other long term (current) drug therapy
CPT/HCPCS: 36200; 75625; 75716; 80048; 85025; C1769 ×3; C1894; J2250; J0360; J2001; J3010

== ENCOUNTER 2023-11-28 05:39 | Day surgery (SDC) | payer MEDICARE, BC ==
[2023-11-28] MEDS ORDERED: ASPIRIN 325 MG TAB PO PRN (06:00)
[2023-11-28] MEDS ORDERED: ALPRAZolam 0.25 MG TAB PO PRN (06:00)
[2023-11-28] MEDS ORDERED: ALPRAZolam 0.5 MG TAB PO PRN (06:00)
[2023-11-28] MEDS: SODIUM CHLORIDE 0.9% 1,000 ML in EMPTY BAG 1 BAG IV ONE (06:23)
[2023-11-28 06:35] VITALS: RESP 18; TEMP 98
[2023-11-28] MEDS ORDERED: LIDOCAINE 1% INJ 10MG/ML (20 ML MDV) ONE (07:27)
[2023-11-28] MEDS ORDERED: fentaNYL (PF) 50 MCG/ML 2 ML AMP ONE (07:34)
[2023-11-28] MEDS ORDERED: HEPARIN SODIUM 1,000 UN/ML (10ML VL) ONE (07:34)
[2023-11-28] MEDS: LIDOCAINE 1% INJ 10MG/ML (20 ML MDV) SQ ONE ×2 (07:53)
[2023-11-28] MEDS: MIDAZOLAM 2 MG/2 ML VIAL IVP ONE (07:53)
[2023-11-28] MEDS: HEPARIN SODIUM 1,000 UN/ML (10ML VL) IV ONE (08:08)
[2023-11-28] MEDS: fentaNYL (PF) 50 MCG/ML 2 ML AMP IVP ONE (08:28)
[2023-11-28] MEDS: IOPAMIDOL-370 100ML BTL INJ ONE (08:28)
[2023-11-28] MEDS ORDERED: NALOXONE 0.4 MG/ML 1 ML VIAL IVP PRN (08:40)
[2023-11-28] MEDS ORDERED: SODIUM CHLORIDE 0.9% 1,000 ML in EMPTY BAG 1 BAG IV SCH (08:45)
--- NOTE | 2023-11-28 08:48 | P.PCN ---
Date of Procedure: 11/28/23 Operative Findings: Peripheral arterial angiogram Performing physician Donte Senior MD Procedure performed 1. Bilateral SFA angiogram 2. Gradient measurement across the left SFA 3. Gradient measurement across bilateral iliacs and IVUS of bilateral iliacs 4. Ultrasound-guided access of the right common femoral artery Indication This is 78-year-old female patient who was diagnosis includes severe symptomatic bilateral lower extremities peripheral arterial disease. She underwent an angiogram using CO2 and that revealed severe bilateral SFA disease. She was brought today to undergo a DATA STORAGE SPECIALIST of the left SFA. Approach Right common femoral artery Complication None Level of sedation Moderate with sedation length 34 minutes Procedure description After obtaining informed consent the patient was brought to the cardiac Stick Puller. The right common femoral artery was cannulated using micropuncture technique under ultrasound guidance and micropuncture wire passed easily then I placed a 6 Ecuadorean 11 cm sheath which was subsequently exchanged into a 6 Ecuadorean 70 cm sheath. After that I was able to select the right SFA using 035 stiff Glidewire with a backup support of 5 Ecuadorean rim catheter then subsequently the sheath was advanced over the wire and catheter to the proximal left common femoral artery. I did an angiogram of the left SFA which showed intermediate lesion involving the left SFA. I did gradient measurement and that came in to be none significantly. After that I decided to do gradient measurement across the left iliac and that came in to be significant with a significant gradient exceeding 20 mmHg across the ostial left iliac artery. I did intravascular imaging and that showed that the lesion to be located in the ostial left iliac with an area stenosis of 77%. Subsequently gradient measurement across the right iliac was performed and came to be nonsignificant documented also to be nonsignificant by intravascular imaging. At that point the procedure was completed. I did exchange my long sheath into short sheath using a 035 stiff Glidewire and the procedure was completed with no complication. Postprocedure management DATA STORAGE SPECIALIST of the left iliac which is extremely calcified with eccentric lesion
[2023-11-28] MEDS: METOPROLOL SUCCINATE (ER) 100 MG TAB.ER.24H PO STA (08:56)
[2023-11-28] MEDS: LOSARTAN 50 MG TAB PO STA (08:56)
[2023-11-28] MEDS: amLODIPine 10 MG TAB PO STA (08:56)
[2023-11-28] MEDS: SODIUM CHLORIDE 0.9% 500 ML 500 ML IV ONE (12:33)
[2023-11-28 15:50] VITALS: BP 154/71; PULSE 72
== END 2023-11-28 15:49 | disposition home or self-care (01) ==
LOC: CATHCVL 05:39
PROVIDERS: ATTEND Internal Medicine Interventional Cardiology
DX: I73.9 Peripheral vascular disease, unspecified (principal); I65.23 Occlusion and stenosis of bilateral carotid arteries; I38 Endocarditis, valve unspecified; I25.10 Atherosclerotic heart disease of native coronary artery without angina pectoris; I10 Essential (primary) hypertension; E78.5 Hyperlipidemia, unspecified; F17.200 Nicotine dependence, unspecified, uncomplicated; Z79.82 Long term (current) use of aspirin; Z79.02 Long term (current) use of antithrombotics/antiplatelets; Z79.899 Other long term (current) drug therapy
CPT/HCPCS: 36246; 75710; 76937; 37252; 99152; 99153; J2250; J2001; J3010; J1644; Q9967

== ENCOUNTER 2023-12-03 16:02 | Emergency (ER) | payer MEDICARE, BC ==
--- NOTE | 2023-12-03 16:25 | ED ---
Eye Problem HPI - General Chief complaint: Eye Problems Stated complaint: Eye Issue Time Seen by Provider: 12/03/23 16:09 Source: patient Mode of arrival: ambulatory Limitations: no limitations - History of Present Illness Initial comments: 78-year-old female present with chief complaint of superglue in the left eye. Patient thought she was putting her eyedrops in, but accidentally grabbed the superglue bottle. This incident occurred around 1545 today. Her eyelid is completely glued shut. She is having discomfort and burning. - Related Data Home Medications Medication Instructions Recorded Confirmed Metoprolol Succinate [Toprol Xl] 100 mg PO DAILY 03/11/19 11/28/23 Aspirin EC [Ecotrin Low Dose] 81 mg PO DAILY 08/05/19 11/28/23 Rosuvastatin [Crestor] 20 mg PO DAILY 08/05/19 11/28/23 Esomeprazole Magnesium [NexIUM] 20 mg PO DAILY 10/13/20 11/28/23 Magnesium Oxide [Mag-Ox] 1,200 mg PO DAILY 10/11/21 11/28/23 Calcium Acetate [PhosLo] 1,334 mg PO HS 03/06/22 11/28/23 Calcium Acetate [PhosLo] 2,001 mg PO DAILY 03/06/22 11/28/23 Torsemide [Demadex] 40 mg PO DAILY 03/06/22 11/28/23 amLODIPine 10 mg PO DAILY 03/06/22 11/28/23 Vit B Comp No.3/Folic/C/Biotin 1 each PO DAILY #0 03/27/23 11/28/23 [Snehal-Josi Rx Tablet] Desvenlafaxine [Desvenlafaxine ER] 50 mg PO Q48H 10/18/23 11/28/23 Ergocalciferol [Vitamin D2 (1250 1,250 mcg PO Q30D 10/18/23 11/28/23 Mcg = 29968 Iu)] Losartan [Cozaar] 25 mg PO HS 10/18/23 11/28/23 Losartan [Cozaar] 50 mg PO DAILY 10/18/23 11/28/23 Magnesium Oxide [Mag-Ox] 800 mg PO HS 10/18/23 11/28/23 Sodium Bicarbonate Tab 1,300 mg PO DAILY 10/18/23 11/28/23 Previous Rx's Medication Instructions Recorded Clopidogrel [Plavix] 75 mg PO DAILY #90 tablet 04/20/23 Allergies Allergy/AdvReac Type Severity Reaction Status Date / Time No Known Allergies Allergy Verified 12/03/23 16:07 Review of Systems ROS Statement: Those systems with pertinent positive or pertinent negative responses have been documented in the HPI. ROS Other: All systems not noted in ROS Statement are negative. Past Medical History Past Medical History: Blood Disorder, Coronary Artery Disease (CAD), Cancer, COPD, Dialysis, GERD/Reflux, Hyperlipidemia, Hypertension, Osteoarthritis (OA), Renal Disease Additional Past Medical History / Comment(s): HX CERVICAL CA. murmur, legs burn, can't walk far,. IRON DEFICIENCY ANEMIA. peritoneal dialysis- nightly at home History of Any Multi-Drug Resistant Organisms: None Reported Past Surgical History: Heart Catheterization, Heart Catheterization With Stent Additional Past Surgical History / Comment(s): TOTAL RT KNEE, Left knee surgery, COLONOSCOPY, cataracts with lens, peritoneal dialysis catheter placement, aortogram Past Anesthesia/Blood Transfusion Reactions: No Reported Reaction Date of Last Stent Placement:: 04/19/2023 Past Psychological History: Anxiety, Panic Disorder Smoking Status: Former smoker Past Alcohol Use History: None Reported Past Drug Use History: None Reported - Past Family History Mother Family Medical History: Coronary Artery Disease (CAD), CVA/TIA Father Family Medical History: Coronary Artery Disease (CAD) General Exam Limitations: no limitations General appearance: alert, in distress (Patient is having pain) Head exam: Present: atraumatic, normocephalic Eye exam: Present: other (The left eyelids are completely glued shut) Neck exam: Present: normal inspection Respiratory exam: Absent: respiratory distress Cardiovascular Exam: Present: regular rate Neurological exam: Present: alert, oriented X3 Skin exam: Present: warm, dry Course Vital Signs 12/03/23 16:03 Temperature 97.7 F Pulse Rate 71 Respiratory 18 Rate Blood Pressure 180/81 O2 Sat by Pulse 94 L Oximetry Medical Decision Making - Medical Decision Making Was pt. sent in by a medical professional or institution (, PA, TRANSFER CAR OPERATOR, urgent care, hospital, or prison...) When possible be specific @ -No Did you speak to anyone other than the patient for history (EMS, parent, family, police, friend...)? What history was obtained from this source @ -No Did you review nursing and triage notes (agree or disagree)? Why? @ -I reviewed and agree with nursing and triage notes Were old charts reviewed (outside hosp., previous admission, EMS record, old EKG, old radiological studies, urgent care reports/EKG's, prison records)? Report findings @ -No old charts were reviewed Differential Diagnosis (chest pain, altered mental status, abdominal pain women, abdominal pain men, vaginal bleeding, weakness, fever, dyspnea, syncope, headache, dizziness, GI bleed, back pain, seizure, CVA, palpatations, mental health, musculoskeletal)? @ -Not applicable EKG interpreted by me (3pts min.). @ -As above X-rays interpreted by me (1pt min.). @ -None done CT interpreted by me (1pt min.). @ -None done U/S interpreted by me (1pt. min.). @ -None done What testing was considered but not performed or refused? (CT, X-rays, U/S, labs)? Why? @ -None What meds were considered but not given or refused? Why? @ -None Did you discuss the management of the patient with other professionals (professionals i.e. , PA, TRANSFER CAR OPERATOR, lab, RT, psych nurse, clinical social work aide, internal revenue agent, teacher, personnel officer, director of casework department)? Give summary @ -I spoke with Dr. Carroll who advised that the patient be sent to his office immediately for his colleague to manage her condition Was smoking cessation discussed for >3mins.? @ -No Was critical care preformed (if so, how long)? @ -No Were there social determinants of health that impacted care today? How? (Homelessness, low income, unemployed, alcoholism, drug addiction, transportation, low edu. Level, literacy, decrease access to med. care, detention, rehab)? @ -No Was there de-escalation of care discussed even if they declined (Discuss DNR or withdrawal of care, Hospice)? DNR status @ -No What co-morbidities impacted this encounter? (DM, HTN, Smoking, COPD, CAD, Cancer, CVA, ARF, Chemo, Hep., AIDS, mental health diagnosis, sleep apnea, morbid obesity)? @ -None Was patient admitted / discharged? Hospital course, mention meds given and route, prescriptions, significant lab abnormalities, going to OR and other pertinent info. @ -78-year-old female who has completely glued her left eye shut. She acci dentally put crazy glue in her eye when she thought that she was putting in her eyedrops. The patient is in pain. The eyelid is completely glued shut. But with trip motor operator Dr. Carroll, he advised having the patient sent to his office immediately for his colleague to evaluate. Discharge is immediately entered and the patient and her daughter are instructed to go directly to the trip motor operator office. I discussed this case with my attending Dr. Giang Undiagnosed new problem with uncertain prognosis? @ -No Drug Therapy requiring intensive monitoring for toxicity (Heparin, Nitro, Insulin, Cardizem)? @ -No Were any procedures done? @ -No Diagnosis/symptom? @ -Eye injury, eyelids glued shut Acute, or Chronic, or Acute on Chronic? @ -Acute Uncomplicated (without systemic symptoms) or Complicated (systemic symptoms)? @ -Complicated Side effects of treatment? @ -No Exacerbation, Progression, or Severe Exacerbation? @ -No Poses a threat to life or bodily function? How? (Chest pain, USA, AR, pneumonia, PE, COPD, DKA, ARF, appy, cholecystitis, CVA, Diverticulitis, Homicidal, Suicidal, threat to staff... and all critical care pts) @ -Threat to the patient's vision Disposition Clinical Impression: Eye injury Disposition: OTHER INSTITUTION NOT DEFINED Condition: Stable Additional Instructions: Go directly to trip motor operator's office Is patient prescribed a controlled substance at d/c from ED?: No Referrals: Daniel Saul MD [Primary Care Provider] - 1-2 days Stephanie Carroll MD [STAFF PHYSICIAN] - 1-2 days Time of Disposition: 16:25 - Out of Hospital Transfer - Req. Specs Out of Hospital Transfer - Requested Specifics: Other Non-Acute ([place] [facility])
[2023-12-03 16:26] VITALS: BP 180/81; PULSE 71; RESP 18; TEMP 97.7
== END 2023-12-03 18:39 | disposition other institution (70) ==
LOC: EC 16:02
DX: S05.92XA Unspecified injury of left eye and orbit, initial encounter (principal); Z87.891 Personal history of nicotine dependence; W23.1XXA Caught, crushed, jammed, or pinched between stationary objects, initial encounter
CPT/HCPCS: 99284

== ENCOUNTER 2024-04-16 06:05 | Day surgery (SDC) | payer MEDICARE, BC ==
[2024-04-16] MEDS ORDERED: SODIUM CHLORIDE 0.9% 250 ML BAG ONE ×2 (06:45→09:15)
[2024-04-16] MEDS ORDERED: SODIUM CHLORIDE 0.9% 1,000 ML BAG ONE (06:45)
[2024-04-16] MEDS ORDERED: HEPARIN SODIUM,PORCINE 10,000 UNIT/ML 1 ML VIAL ONE (06:45)
[2024-04-16] MEDS ORDERED: LIDOCAINE 1% INJ 10MG/ML (20 ML MDV) ONE ×4 (08:19→09:00)
[2024-04-16] MEDS ORDERED: niCARdipine 25 MG/10 ML VIAL ONE ×2 (08:19)
[2024-04-16] MEDS ORDERED: HEPARIN SODIUM 1,000 UN/ML (10ML VL) ONE ×2 (08:21)
[2024-04-16] MEDS ORDERED: MIDAZOLAM 2 MG/2 ML VIAL ONE ×2 (08:21)
[2024-04-16] MEDS ORDERED: HYDROmorphone 0.5 MG/0.5 ML SYRINGE ONE ×2 (08:57)
[2024-04-16] MEDS ORDERED: HEPARIN SODIUM,PORCINE 5,000 UNIT/ML 1 ML VIAL ONE (09:15)
[2024-04-16] MEDS ORDERED: FLUMAZENIL 0.1 MG/ML 5 ML VIAL IVP ONE ×2 (09:19)
[2024-04-16] MEDS: IOPAMIDOL-370 100ML BTL INJ ONE (09:25)
--- NOTE | 2024-04-18 15:57 | CC ---
CARDIAC CATHETERIZATION REPORT PROCEDURES PERFORMED: 1. Bilateral iliac and SFA and popliteal angiogram. 2. Ultrasound-guided access of bilateral common femoral arteries. 3. Gradient measurement across the left common iliac artery. INDICATION: Bilateral lower extremities intermittent claudication and abnormal arterial duplex study. COMPLICATIONS: None. LEVEL OF SEDATION: Moderate, with sedation length of 25 minutes. PROCEDURE DESCRIPTION: After obtaining informed consent, the patient was brought to the cardiac cardiac cath lab manager. The right and left common femoral arteries were cannulated using micropuncture technique. Under ultrasound guidance, the micropuncture wire passed easily. Then, I placed a 6- Divehi 23 cm at both femoral arteries. We did an angiogram, which showed mild-to- moderate disease involving the left common iliac arteries. I did perform gradient measurement and that came into be hemodynamically not significant. At that point, I did bilateral SFA and popliteal angiogram and that showed also [id number] disease with no high-grade stenosis was identified. CONCLUSION: 1. [id number] nonobstructive peripheral arterial disease as described above. 2. Postprocedure management. 3. Medical treatment and follow up with the patient. MMODL / IJN: [id number] /
--- NOTE | 2024-05-28 23:46 | IR ---
EXAMINATION TYPE: IR angio lower extremity LT Intraoperative/procedural fluoroscopic services were pr ovided. CLINICAL INDICATION:Female, 79 years old with history of left leg pain, 3.7min fluoro, 0.900Pbdm1; , [facility] Total fluoroscopy time is 3.7 min. DAP: 0.424 Gycm2 uGym2 Please see the operative/procedural note for further details. [facility], , 05/28/2024 11:44 PM
== END 2024-04-16 16:40 | disposition home or self-care (01) ==
LOC: CATHCVL 06:05
PROVIDERS: ATTEND Internal Medicine Interventional Cardiology
DX: I25.10 Atherosclerotic heart disease of native coronary artery without angina pectoris (principal); I10 Essential (primary) hypertension; E78.5 Hyperlipidemia, unspecified; I73.9 Peripheral vascular disease, unspecified; I65.23 Occlusion and stenosis of bilateral carotid arteries; F17.200 Nicotine dependence, unspecified, uncomplicated; Z95.5 Presence of coronary angioplasty implant and graft; Z79.02 Long term (current) use of antithrombotics/antiplatelets; Z79.899 Other long term (current) drug therapy
CPT/HCPCS: 75710